=== PATIENT | female | born 1935 | race Caucasian/White ===

== ENCOUNTER 2021-06-11 03:30 | Inpatient (IN) | payer MEDICARE ==
[~2021-06-11] VITALS: Ht 160 cm; Wt 68.8 kg
[2021-06-11 03:45] VITALS: BP 128/55
[2021-06-11] MEDS: IV NORMAL SALINE 1000ML BAG 1,000 ML IV SCH ×2 (04:18→23:12)
--- NOTE | 2021-06-11 04:30 | NUR ---
ADMIT NOTE The patient, MIRA REID, 86 y/o, F admitted by LILIA KO MD, was given written information regarding hospital policies, unit procedures and contact persons. Patient arrived to unit via EMS from [facility] ED. Patient A&O to self, place and situation, VSS, and placed on 2L of O2 on admission. Patient orientated to room, plan of care discussed, and admit packet reviewed. Patient's medical history and home medications reviewed from report received from [facility]. Patient's allergies and preferred pharmacy verified. MD notified of patient's admit to floor and orders received. Patient in bed resting, bed in lowest/locked position, SCDs/Raphael in place, and call light within reach; no other needs voiced at this time.
[2021-06-11] MEDS ORDERED: ACET325T21 PO (05:07)
[2021-06-11] MEDS ORDERED: VENTOLIN HFA18 GM INH (05:08)
[2021-06-11] MEDS ORDERED: ATOR10TA60 PO (05:08)
[2021-06-11] MEDS ORDERED: INSU100I13 SQ (05:08)
[2021-06-11] MEDS ORDERED: TRIA1CAP3 PO (05:08)
[2021-06-11] MEDS ORDERED: LATA2.5D2 OU (05:08)
[2021-06-11] MEDS ORDERED: APIX5TAB PO (05:08)
[2021-06-11] MEDS ORDERED: LOSA25TA PO (05:08)
[2021-06-11] MEDS ORDERED: DORZ10DR21 EACHEYE (05:08)
[2021-06-11] MEDS ORDERED: MONT10TA49 PO (05:08)
[2021-06-11] MEDS ORDERED: IPRA3AMP29 NEB (05:08)
[2021-06-11] MEDS ORDERED: INSU100V35 SQ ×2 (05:08)
[2021-06-11] MEDS ORDERED: DILT360T7 PO (05:08)
[2021-06-11 07:15] VITALS: BP 138/64
[2021-06-11 07:27] LABS: PROTHROMBIN TIME PATIENT 14.6 SEC (11.7-14.0)
--- NOTE | 2021-06-11 09:00 | NUR ---
Eveline is resting quietly with eyes closed. she has o2 on at 2lnc she arouses easily. farias is patent with yellow urine. spoke with daughter and on the phone.They were given the [place] code to call for information. code 8044. update given spoke about delay on surgery related to the Eliquis and bleeding potential.
--- NOTE | 2021-06-11 09:14 | HP ---
ADMIT DATE: 06/11/2021 CHIEF COMPLAINT: Fall with hip pain. HISTORY OF PRESENT ILLNESS: The patient is a pleasant elderly female who fell, has hip pain. In the ER, they did imaging. She has a hip fracture. She has now been admitted. We are consulting orthopedics. PAST MEDICAL HISTORY: Arthritis, hypertension, hyperlipidemia, polypharmacy, asthma, chronic anticoagulation, glaucoma, diabetes. ALLERGIES: PENICILLIN, IBUPROFEN. FAMILY HISTORY: Diabetes. SOCIAL HISTORY: She does not drink, smoke or take drugs. She is retired. MEDICATIONS: Reviewed. She is on 14. Please refer to the MRAD. REVIEW OF SYSTEMS: GENERAL: No history of weight change, weakness or fevers. SKIN: No bruising, hair changes or rashes. EYES: No blurred, double or loss of vision. NOSE AND THROAT: No history of nosebleeds, hoarseness or sore throat. HEART: No history of palpitations, chest pain or shortness of breath on exertion. LUNGS: Denies cough, hemoptysis, wheezing or shortness of breath. GASTROINTESTINAL: Denies changes in appetite, nausea, vomiting, diarrhea or constipation. GENITOURINARY: No history of frequency, urgency, hesitancy or nocturia. NEUROLOGIC: Denies history of numbness, tingling, tremor or weakness. PSYCHIATRIC: No history of panic, anxiety or depression. ENDOCRINE: No history of heat or cold intolerance, polyuria or polydipsia. EXTREMITIES: She complains of left hip pain. PHYSICAL EXAMINATION: VITALS: Within normal limits and are stable. GENERAL: No apparent distress. Alert and oriented. HEENT: Normal cephalic atraumatic, external auditory canals are patent. EYES: Extraocular muscles are intact, pupils are equally round and reactive to light and accommodation. MUSCULOSKELETAL: Well developed, well nourished, good range of motion. ENDOCRINE: No thyromegaly was palpated. LYMPHATICS: No cervical chain or axillary nodes were noted. HEMATOPOIETIC: No bruising. NECK: Supple, no JVD, no thyromegaly was noted. LUNGS: Clear to auscultation in all lung robert without rhonchi or wheezing. HEART: RRR, S1, S2 present. Peripheral pulses intact, no obvious murmurs were noted. ABDOMEN: Soft, nontender. Positive bowel sounds no organomegaly, normal bowel sounds. EXTREMITIES: The left hip is externally rotated. NEUROLOGIC: Normal speech, normal tone. A and O x 3, moves all extremities, no obvious focal deficits. PSYCHIATRIC: Normal affect, normal mood. Stable. SKIN: No ulcerations or rashes, good skin turgor, no jaundice. VASCULAR: Good capillary refill, neurovascular bundle appears to be intact. ASSESSMENT AND PLAN: Fall with left hip fracture. The patient has been admitted. We have consulted Orthopedics. We will hold her home meds for now. I suspect she will go to surgery soon. Postoperatively, she is going to need wound care and probable nursing home in a few days. RAJNI DR: Ronadl TID: [id number]
[2021-06-11 11:01] VITALS: BP 147/72
[2021-06-11] MEDS ORDERED: INSULIN LISPRO 100 UNIT/ML 3ML VIAL for OP,RR ONLY. SQ SCH (11:11)
[2021-06-11] MEDS ORDERED: DEXTROSE 50% 25 GM / 50ML DISP.SYRIN. IV PRN (11:30)
[2021-06-11] MEDS: INSULIN LISPRO 300 UNITS/3 ML VIAL. SQ SCH ×2 (11:54→17:00)
[2021-06-11] MEDS: TRIAMTERENE/HCTZ 37.5/25MG TABLET. PO SCH (12:00)
[2021-06-11] MEDS ORDERED: ALBUTEROL SULFATE 2.5 MG/3 ML NEBU. NEB PRN (12:00)
[2021-06-11] MEDS: LOSARTAN POTASSIUM 25 MG TABLET. PO SCH (12:00)
[2021-06-11] MEDS: IPRATRPIUM/ALBUTEROL 0.5/2.5MG 3 ML NEBU. NEB SCH ×3 (12:02→21:03)
[2021-06-11] MEDS: ONDANSETRON PF 4 MG/2 ML VIAL. IVP PRN ×2 (12:32→23:39)
[2021-06-11] MEDS: MORPHINE SULFATE 2 MG/ML INJ. IVP PRN ×3 (12:32→23:39)
--- NOTE | 2021-06-11 13:07 | NUR ---
became nauseated and had increase in pain. emesis of approx 100 cc brown liquid. medicated with morphine and zofran
[2021-06-11 14:59] VITALS: BP 129/70
--- NOTE | 2021-06-11 15:30 | NUR ---
SW following. Discussed with RN, pt from [facility] - SW trying to reach [facility] to verify if pt is LTC or SNF, 2L, NPO. Ortho following. SW will continue to follow.
--- NOTE | 2021-06-11 18:34 | NUR ---
update given to daughter and
[2021-06-11 19:00] VITALS: BP 122/59
[2021-06-11] MEDS: ATORVASTATIN CALCIUM 10 MG TABLET. PO SCH (20:30)
[2021-06-11] MEDS: DORZOLAMIDE 2% OPHTH SOLUTION 10ML BOTTLE. OD SCH (20:30)
[2021-06-11] MEDS: LATANOPROST 0.005% OPHTH SOLUTION 2.5ML BOTTLE. OU SCH (20:30)
[2021-06-11] MEDS: MONTELUKAST SODIUM 10 MG TABLET. PO SCH (20:30)
[2021-06-11] MEDS: TIMOLOL 0.25% OPHTH SOLUTION 5ML BOTTLE. OU SCH (20:30)
[2021-06-11] MEDS: INSULIN GLARGINE SYRINGE. SQ SCH ×2 (20:36→20:49)
--- NOTE | 2021-06-11 20:50 | NUR ---
Per MD's orders, partial dose(15 units) of scheduled Lantus given this HS d/t pt's NPO status during most of day and low oral intake at dinner.
[2021-06-11 22:38] VITALS: BP 156/73
[2021-06-12] VITALS (12 sets, daily range): BP systolic 93–133; BP diastolic 41–70
[2021-06-12] MEDS: MORPHINE SULFATE 2 MG/ML INJ. IVP PRN ×3 (02:57→20:08)
[2021-06-12] MEDS: IPRATRPIUM/ALBUTEROL 0.5/2.5MG 3 ML NEBU. NEB SCH ×4 (06:14→20:32)
[2021-06-12] MEDS: INSULIN LISPRO 300 UNITS/3 ML VIAL. SQ SCH ×3 (08:00→17:00)
[2021-06-12] MEDS: TRIAMTERENE/HCTZ 37.5/25MG TABLET. PO SCH (08:16)
[2021-06-12] MEDS: LOSARTAN POTASSIUM 25 MG TABLET. PO SCH (08:16)
[2021-06-12] MEDS: LATANOPROST 0.005% OPHTH SOLUTION 2.5ML BOTTLE. OU SCH (08:18)
[2021-06-12] MEDS: DORZOLAMIDE 2% OPHTH SOLUTION 10ML BOTTLE. OD SCH ×3 (08:18→21:27)
[2021-06-12] MEDS: TIMOLOL 0.25% OPHTH SOLUTION 5ML BOTTLE. OU SCH ×2 (08:19→21:25)
--- NOTE | 2021-06-12 10:22 | PDOC ---
[employer] PROGRESS NOTE Date of Service DOS: DATE: 06/12/21 TIME: 10:12 Chief Complaint Chief Complaint Fall with left hip fracture. Arthritis. Hypertension. Hyperlipidemia. Polypharmacy. Asthma. Chronic Anticoagulation. Glaucoma. Diabetes. History of Present Illness History of Present Illness 06/12: Mrs. Qureshi was seen and evaluated this morning while in her room at bedside. We reviewed her chart and discussed her current disposition with her nurse. She is currently receiving 3L of Oxygen. Dr. Ruvalcaba plans to operate this afternoon. Vitals/I&O Vitals/I&O: Vital Signs Date Time Temp Pulse Resp B/P (MAP) Pulse Ox O2 Delivery O2 Flow Rate FiO2 06/12/21 08:18 110 133/70 06/12/21 07:56 Nasal Cannula 2.0 06/12/21 07:00 99.4 18 88 99.4 I & O 06/11/21 06/11/21 06/12/21 15:00 23:00 07:00 Intake Total 0 ml 550 ml 1250 ml Output Total 550 ml 1000 ml 1000 ml Balance -550 ml -450 ml 250 ml Physical Exam General: Alert, Oriented X3, Cooperative Heart: Regular rate, No murmurs Lungs: Clear Abdomen: Normal bowel sounds Extremities: No clubbing Skin: No rashes Labs Labs: Laboratory Tests Test 06/11/21 11:40 06/11/21 17:21 06/11/21 20:29 06/12/21 08:15 Glucose (Fingerstick) 96 mg/dL (70-99) 82 mg/dL (70-99) 154 mg/dL (70-99) 108 mg/dL (70-99) Review of Systems Review of Systems: No headache No rashes Assessment and Plan Assessmemt and Plan Assessment: 1. Fall with left hip fracture. 2. Arthritis. 3. Hypertension. 4. Hyperlipidemia. 5. Polypharmacy. 6. Asthma. 7. Chronic Anticoagulation. 8. Glaucoma. 9. Diabetes. Plan: 1. Surgery this afternoon with Dr. Ruvalcaba 2. Full Code 3. IV Fluids 4. Continue Supplemental Oxygen 5. PT/OT following surgical procedure Comment Review of Relevant I have reviewed the following items del (where applicable) has been applied. Medications: Current Medications Medications (Trade) Dose Ordered Sig/Rasta Route PRN Reason Start Time Stop Time Status Last Admin Dose Admin Atorvastatin Calcium (Lipitor) 10 mg HS PO 06/11/21 21:00 06/11/21 20:30 Albuterol/ Ipratropium (Duoneb) 3 ml RTQID NEB 06/11/21 12:00 06/12/21 06:14 Latanoprost (Xalatan) 1 drop QHS OU 06/11/21 21:00 06/12/21 08:18 Losartan Potassium (Cozaar) 25 mg DAILY PO 06/11/21 12:00 06/12/21 08:16 Montelukast Sodium (Singulair) 10 mg HS PO 06/11/21 21:00 06/11/21 20:30 Diltiazem HCl (Cardizem 24hr Cd) 360 mg DAILY PO 06/11/21 12:00 06/12/21 08:18 Dorzolamide HCl (Trusopt) 1 drop BID OD 06/11/21 21:00 06/12/21 09:00 Insulin Glargine (Lantus Syringe) 30 unit QHS SQ 06/11/21 21:00 06/11/21 20:49 Triamterene/HCTZ (Maxzide 37.5/ 25mg) 1 tab DAILY PO 06/11/21 12:00 06/12/21 08:16 Timolol Maleate (Timoptic 0.25% [facility]) 1 drop BID OU 06/11/21 21:00 06/12/21 08:19 Justifications for Admission Other Justification MAVIS WALKER III DO Jun 12, 2021 10:22
--- NOTE | 2021-06-12 11:34 | NUR ---
MAGI following. Discussed with RN. [facility]I verified pt is a SNF resident at [facility], 2L, NPO. Ortho following. Pt having surgery today. MAGI will continue to follow.
[2021-06-12] MEDS ORDERED: PROPOFOL 10 MG/ML (20ML) VIAL. IV ONE (16:39)
[2021-06-12] MEDS ORDERED: LIDOCAINE 2% PF 5 ML VIAL. ONE (16:39)
[2021-06-12] MEDS ORDERED: PHENYLEPHRINE 10 MG/ML VIAL. ONE (16:39)
[2021-06-12] MEDS ORDERED: MORPHINE SULFATE 2 MG/ML INJ. IVP PRN (16:45)
[2021-06-12] MEDS: IV NORMAL SALINE 1000ML BAG 1,000 ML IV SCH ×3 (16:45→19:45)
[2021-06-12] MEDS ORDERED: HYDROmorphone 2 MG/ML VIAL IVP PRN (16:45)
[2021-06-12] MEDS ORDERED: INSULIN LISPRO 100 UNIT/ML 3ML VIAL for OP,RR ONLY. SQ PRN ×3 (16:45)
[2021-06-12] MEDS ORDERED: IV NORMAL SALINE 1000ML BAG 1,000 ML IV SCH ×2 (16:45)
[2021-06-12] MEDS ORDERED: IV RINGERS,LACTATED 1000ML 1,000 ML IV SCH (16:45)
[2021-06-12] MEDS ORDERED: PROCHLORPERAZINE 10 MG/2 ML VIAL. IVP PRN (16:45)
[2021-06-12] MEDS ORDERED: fentaNYL PF VIAL 100 MCG/2 ML VIAL IVP PRN (16:45)
[2021-06-12] MEDS ORDERED: fentaNYL PF VIAL 100 MCG/2 ML VIAL ONE (17:20)
[2021-06-12] MEDS: fentaNYL PF VIAL 100 MCG/2 ML VIAL IVP PRN ×3 (17:28→19:02)
[2021-06-12] MEDS ORDERED: CLINDAMYCIN 900MG PREMIX 50 ML IV ONE (17:33)
[2021-06-12] MEDS ORDERED: ePHEDrine PF IN SALINE 50 MG/10 ML SYRINGE. IV ONE (17:54)
[2021-06-12] MEDS ORDERED: CLINDAMYCIN 900MG PREMIX 50 ML IV PRN (18:00)
[2021-06-12] MEDS ORDERED: ONDANSETRON PF 4 MG/2 ML VIAL. ONE (18:06)
[2021-06-12] MEDS ORDERED: SEVOFLURANE 31 TO 60 MINUTES. IH ONE (18:19)
--- NOTE | 2021-06-12 18:33 | PDOC4 ---
OPERATIVE NOTE Date: Date: Jun 12, 2021 Pre-Op Diagnosis: Impacted subcapital fracture right hip Post-Op Diagnosis: Same Procedure Performed: Open reduction percutaneous pinning fixation right hip fracture Surgeon: Jordon Anesthesia Type: General Blood Loss: 50 cc Specimans Obtained: None Findings: See dictation Complications: None MARLON NOEL Jr. DO Jun 12, 2021 18:33
--- NOTE | 2021-06-12 18:50 | OP ---
DATE OF SURGERY: 06/12/2021 PREOPERATIVE DIAGNOSIS: Impacted subcapital fracture, right hip. POSTOPERATIVE DIAGNOSIS: Impacted subcapital fracture, right hip. PROCEDURE: Open reduction with percutaneous pin fixation, right hip. SURGEON: Saúl Ruvalcaba Jr, DO ANESTHESIA: General. COMPLICATIONS: None. ESTIMATED BLOOD LOSS: 50 mL. DESCRIPTION OF PROCEDURE: The patient was taken to the operative suite, given a general anesthetic, placed on the fracture table. There was noted to be satisfactory reduction and continued impaction of the right hip fracture. Therefore, the right hip was prepped and draped in a sterile fashion. Incision was made through skin and subcutaneous tissues down through to the iliotibial band down to the femur. The guide pins were then placed from lateral through the neck and into the head in an appropriate position. Three separate pins were placed. Again, anatomically, this looked very good. Therefore, the outer cortex was drilled and then, the 3 screws were then affixed to the area of the femur and into the head and neck and again, a good compression and there was excellent compression of all screws. These were 85 mm, 80 mm and 75 mm in length. The guide pins were then removed. Final x-rays were taken. This wound was then thoroughly irrigated. Superficial tissues and skin was reapproximated. Sterile dressing was applied. The patient was then taken from the operative bed to a postoperative bed and taken to the PACU in stable condition. JOSE M DR: Bryson TID: [id number]
[2021-06-12] MEDS: MONTELUKAST SODIUM 10 MG TABLET. PO SCH (21:19)
[2021-06-12] MEDS: ATORVASTATIN CALCIUM 10 MG TABLET. PO SCH (21:20)
[2021-06-12] MEDS: ACETAMINOPHEN 325 MG TABLET. PO PRN (21:22)
[2021-06-12] MEDS: INSULIN GLARGINE SYRINGE. SQ SCH (21:38)
[2021-06-13] MEDS: MORPHINE SULFATE 2 MG/ML INJ. IVP PRN ×3 (00:06→20:00)
[2021-06-13 02:55] VITALS: BP 98/40
[2021-06-13] MEDS: IPRATRPIUM/ALBUTEROL 0.5/2.5MG 3 ML NEBU. NEB SCH ×5 (06:09→19:06)
[2021-06-13 07:15] VITALS: BP 121/47
[2021-06-13] MEDS: INSULIN LISPRO 300 UNITS/3 ML VIAL. SQ SCH ×3 (08:00→17:00)
--- NOTE | 2021-06-13 08:42 | CONS ---
DATE OF CONSULTATION: 06/12/2021 REASON FOR CONSULTATION: Right hip fracture. HISTORY OF PRESENT ILLNESS: The patient is an 86-year-old female who was ambulating and sustained a trip and fall type of injury. After that fall, she was able to actually ambulate, but with significant pain in the right hip region. Therefore, she was brought to the hospital here at [facility] where x-rays were obtained. She was noted to have an impacted subcapital fracture of the right hip. Actually only mild to moderate pain at this point as long as she was in a stable position. At this point, she has no other injuries, which occurred thankfully. Past medical and surgical history, medications and allergies were reviewed. PHYSICAL EXAMINATION: Today was limited due to the known impacted fracture; however, rotation was uncomfortable. There was no significant shortening or externally rotating of the lower extremity. At this point, the distal neurovascular status is fully intact. DIAGNOSTIC STUDIES: X-rays reveal an impacted fracture, subcapital of right hip. PLAN: At this time, I have talked with the family at length about the diagnosis and the treatment plan. I believe due to the impacted nature of this fracture, it is somewhat stable at this point and in fact we have a very high possibility of this healing with percutaneous pinning and after a long discussion of this versus hemiarthroplasty and the risks and benefits of both as far as nonunion, they wished to proceed with the percutaneous pinning after the open reduction. We will proceed as soon as she is medically cleared. She understands all this. LUZ/EMANUEL/CORNELIUS DR: Bryson TID: [id number]
[2021-06-13] MEDS: TRIAMTERENE/HCTZ 37.5/25MG TABLET. PO SCH (10:25)
[2021-06-13] MEDS: DORZOLAMIDE 2% OPHTH SOLUTION 10ML BOTTLE. OD SCH ×2 (10:26→20:06)
[2021-06-13] MEDS: LOSARTAN POTASSIUM 25 MG TABLET. PO SCH (10:26)
[2021-06-13] MEDS: TIMOLOL 0.25% OPHTH SOLUTION 5ML BOTTLE. OU SCH ×2 (10:26→20:06)
--- NOTE | 2021-06-13 10:44 | NUR ---
SW following. Discussed with RN, pt from [facility], 5L, NPO. Pt had surgery on 06/12/21. PT/OT to start today. COVID-19 negative at [facility]. Updates faxed to [facility]. [facility]I will continue to follow.
[2021-06-13 11:02] VITALS: BP 114/55
--- NOTE | 2021-06-13 12:12 | PDOC ---
[employer] PROGRESS NOTE Date of Service DOS: DATE: 06/13/21 TIME: 12:08 Chief Complaint Chief Complaint Fall with left hip fracture. Hypertension. Arthritis. Hyperlipidemia. Polypharmacy. Asthma. Chronic Anticoagulation. Glaucoma Diabetes History of Present Illness History of Present Illness 06/12: Mrs. Qureshi was seen and evaluated this morning while in her room at bedside. We reviewed her chart and discussed her current disposition with her nurse. She is currently receiving 3L of Oxygen. Dr. Ruvalcaba plans to operate this afternoon. 06/13: Mrs. Qureshi was evaluated and seen this morning while in her room, sitting up. We reviewed her chart and we discussed her current disposition with her nurse. She is post-op day 1 and her wound is dry, intact and clear. Vitals/I&O Vitals/I&O: Vital Signs Date Time Temp Pulse Resp B/P (MAP) Pulse Ox O2 Delivery O2 Flow Rate FiO2 06/13/21 11:02 98.5 68 18 114/55 (74) 95 Nasal Cannula 5.0 98.5 I & O 06/12/21 06/12/21 06/13/21 15:00 23:00 07:00 Intake Total 590 ml 360 ml Output Total 750 ml 450 ml Balance -160 ml -90 ml Physical Exam General: Alert, Oriented X3, Cooperative Heart: Regular rate, No murmurs Lungs: Clear Abdomen: Normal bowel sounds Extremities: No clubbing Skin: No rashes Labs Labs: Laboratory Tests Test 06/12/21 16:31 06/12/21 18:40 06/12/21 20:58 06/13/21 07:42 Glucose (Fingerstick) 93 mg/dL (70-99) 86 mg/dL (70-99) 100 mg/dL (70-99) 68 mg/dL (70-99) Test 06/13/21 11:25 Glucose (Fingerstick) 108 mg/dL (70-99) Review of Systems Review of Systems: No headache. No vomiting. Assessment and Plan Assessmemt and Plan Assessment: 1. Fall with left hip fracture. 2. Hypertension 3. Hyperlipidemia 4. Arthritis. 5. Polypharmacy. 6. Asthma. 7. Chronic Anticoagulation. 8. Glaucoma. 9. Diabetes. Plan: 1. Continue Wound Care 2. Full Code 3. PT/OT 4. Trend labs 5. Probably discharge in a couple of days. Comment Review of Relevant I have reviewed the following items del (where applicable) has been applied. Medications: Current Medications Medications (Trade) Dose Ordered Sig/Rasta Route PRN Reason Start Time Stop Time Status Last Admin Dose Admin Fentanyl Citrate (Fentanyl 2ml Vial) 25 mcg PRN Q5MIN PRN IVP MILD PAIN 1-3 06/12/21 16:45 06/12/21 22:00 DC 06/12/21 19:02 Sodium Chloride 1,000 ml @ 30 mls/hr Q24H IV 06/12/21 16:45 06/13/21 04:44 DC 06/12/21 16:45 Clindamycin Phosphate 50 ml @ 100 mls/hr 1X PREOP PRN IV PRIOR TO PROCEDURE 06/12/21 18:00 06/13/21 10:37 DC 06/12/21 17:36 Acetaminophen (Tylenol) 650 mg PRN Q6HRS PRN PO MILD PAIN / TEMP > 100.3'F 06/12/21 18:45 06/12/21 21:22 Justifications for Admission Other Justification MAVIS WALKER III DO Jun 13, 2021 12:12
[2021-06-13] MEDS ORDERED: PHENYLEPH/MINERAL OIL/PETROLAT RECTAL OINTMENT TUBE. RC PRN (12:15)
[2021-06-13] MEDS ORDERED: HYDROcodone/APAP 5/325MG 1 TAB TABLET PO PRN (13:30)
[2021-06-13 15:14] VITALS: BP 104/41
[2021-06-13 15:37] LABS: BASO % 0 % (0-3); EOS # 0.2 x10^3/uL (0.0-0.7); EOS % 3 % (0-3); HEMATOCRIT 29.8 % (36.0-47.0); HEMOGLOBIN 9.9 g/dL (12.0-15.5); LYMPH # 1.4 x10^3/uL (1.0-4.8); LYMPH % 18 % (24-48); MEAN CORPUSCULAR HEMOGLOBIN 29 pg (25-35); MEAN CORPUSCULAR HGB CONC 33 g/dL (31-37); MEAN CORPUSCULAR VOLUME 87 fL (79-100); MONO # 1.1 x10^3/uL (0.0-1.1); MONO % 14 % (0-9); NEUT # 4.9 x10^3/uL (1.8-7.7); NEUT % 64 % (31-73); PLATELET COUNT 252 x10^3/uL (140-400); RED BLOOD COUNT 3.44 x10^6/uL (3.50-5.40); RED CELL DISTRIBUTION WIDTH 16.3 % (11.5-14.5); WHITE BLOOD COUNT 7.7 x10^3/uL (4.0-11.0)
[2021-06-13 15:39] LABS: CALCIUM 8.5 mg/dL (8.5-10.1); CREATININE 1.4 mg/dL (0.6-1.0); GFR 35.7; POTASSIUM 4.2 mmol/L (3.5-5.1)
[2021-06-13] MEDS: IV NORMAL SALINE 1000ML BAG 1,000 ML IV SCH (15:45)
[2021-06-13] MEDS ORDERED: DILT180T7 PO (17:29)
[2021-06-13] MEDS: HYDROcodone/APAP 5/325MG 1 TAB TABLET PO PRN (19:20)
[2021-06-13 19:35] VITALS: BP 106/49
[2021-06-13] MEDS: ATORVASTATIN CALCIUM 10 MG TABLET. PO SCH (20:06)
[2021-06-13] MEDS: LATANOPROST 0.005% OPHTH SOLUTION 2.5ML BOTTLE. OU SCH (20:06)
[2021-06-13] MEDS: APIXABAN 5 MG TABLET. PO SCH (20:06)
[2021-06-13] MEDS: MONTELUKAST SODIUM 10 MG TABLET. PO SCH (20:06)
[2021-06-13] MEDS: INSULIN GLARGINE SYRINGE. SQ SCH (20:12)
[2021-06-13 23:23] VITALS: BP 114/50
[2021-06-14 07:00] VITALS: BP 112/55
[2021-06-14] MEDS: IPRATRPIUM/ALBUTEROL 0.5/2.5MG 3 ML NEBU. NEB SCH ×4 (07:08→18:20)
[2021-06-14] MEDS: INSULIN LISPRO 300 UNITS/3 ML VIAL. SQ SCH ×3 (08:00→17:00)
[2021-06-14] MEDS: TIMOLOL 0.25% OPHTH SOLUTION 5ML BOTTLE. OU SCH ×2 (09:16→21:53)
[2021-06-14] MEDS: APIXABAN 5 MG TABLET. PO SCH ×2 (09:17→21:54)
[2021-06-14] MEDS: LOSARTAN POTASSIUM 25 MG TABLET. PO SCH (09:17)
[2021-06-14] MEDS: TRIAMTERENE/HCTZ 37.5/25MG TABLET. PO SCH (09:17)
[2021-06-14] MEDS: DORZOLAMIDE 2% OPHTH SOLUTION 10ML BOTTLE. OD SCH ×2 (09:18→21:53)
--- NOTE | 2021-06-14 10:55 | PDOC ---
[employer] PROGRESS NOTE Date of Service DOS: DATE: 06/14/21 TIME: 10:50 Chief Complaint Chief Complaint Fall with right hip fracture. Hypertension. Hyperlipidemia Arthritis. Polypharmacy. Asthma. Chronic Anticoagulation. Glaucoma Diabetes History of Present Illness History of Present Illness 06/12: Mrs. Qureshi was seen and evaluated this morning while in her room at bedside. We reviewed her chart and discussed her current disposition with her nurse. She is currently receiving 3L of Oxygen. Dr. Ruvalcaba plans to operate this afternoon. 06/13: Mrs. Qureshi was evaluated and seen this morning while in her room, sitting up. We reviewed her chart and we discussed her current disposition with her nurse. She is post-op day 1 and her wound is dry, intact and clear. 06/14: Mrs. Qureshi was seen and evaluated this morning in her room. She was sitting up and eating her breakfast. Overall, she appears to be doing well, and her wound was dry, intact and clear. She is post-op day 2. We discussed her current disposition with her nurse and reviewed her chart. She is currently on 5L of Oxygen. Vitals/I&O Vitals/I&O: Vital Signs Date Time Temp Pulse Resp B/P (MAP) Pulse Ox O2 Delivery O2 Flow Rate FiO2 06/14/21 09:18 67 112/55 06/14/21 07:08 Nasal Cannula 5.0 06/14/21 07:00 97.7 16 96 97.7 I & O 06/13/21 06/13/21 06/14/21 15:00 23:00 07:00 Intake Total 520 ml 240 ml Output Total 700 ml 550 ml Balance 520 ml -460 ml -550 ml Physical Exam General: Alert, Oriented X3, Cooperative Heart: Regular rate, No murmurs Lungs: Clear Abdomen: Normal bowel sounds Extremities: No clubbing Skin: No rashes Labs Labs: Laboratory Tests Test 06/13/21 11:25 06/13/21 15:05 06/13/21 16:40 06/13/21 16:45 Glucose (Fingerstick) 108 mg/dL (70-99) 188 mg/dL (70-99) White Blood Count 7.7 x10^3/uL (4.0-11.0) Red Blood Count 3.44 x10^6/uL (3.50-5.40) Hemoglobin 9.9 g/dL (12.0-15.5) Hematocrit 29.8 % (36.0-47.0) Mean Corpuscular Volume 87 fL (79-100) Mean Corpuscular Hemoglobin 29 pg (25-35) Mean Corpuscular Hemoglobin Concent 33 g/dL (31-37) Red Cell Distribution Width 16.3 % (11.5-14.5) Platelet Count 252 x10^3/uL (140-400) Neutrophils (%) (Auto) 64 % (31-73) Lymphocytes (%) (Auto) 18 % (24-48) Monocytes (%) (Auto) 14 % (0-9) Eosinophils (%) (Auto) 3 % (0-3) Basophils (%) (Auto) 0 % (0-3) Neutrophils # (Auto) 4.9 x10^3/uL (1.8-7.7) Lymphocytes # (Auto) 1.4 x10^3/uL (1.0-4.8) Monocytes # (Auto) 1.1 x10^3/uL (0.0-1.1) Eosinophils # (Auto) 0.2 x10^3/uL (0.0-0.7) Basophils # (Auto) 0.0 x10^3/uL (0.0-0.2) Sodium Level 134 mmol/L (136-145) Potassium Level 4.2 mmol/L (3.5-5.1) Chloride Level 98 mmol/L (98-107) Carbon Dioxide Level 28 mmol/L (21-32) Anion Gap 8 (6-14) Blood Urea Nitrogen 20 mg/dL (7-20) Creatinine 1.4 mg/dL (0.6-1.0) Estimated GFR (Cockcroft-Gault) 35.7 Glucose Level 203 mg/dL (70-99) Calcium Level 8.5 mg/dL (8.5-10.1) Lactic Acid Level 0.7 mmol/L (0.4-2.0) Test 06/13/21 20:04 06/14/21 08:26 Glucose (Fingerstick) 253 mg/dL (70-99) 106 mg/dL (70-99) Review of Systems Review of Systems: No vomiting No headache Assessment and Plan Assessmemt and Plan Assessment: 1. Fall with right hip fracture. 2. Hypertension. 3. Hyperlipidemia 4. Arthritis. 5. Polypharmacy. 6. Asthma. 7. Chronic Anticoagulation. 8. Glaucoma 9. Diabetes Plan: 1. Continue wound care 2. Continue DVT Prophylaxis (Eliquis) 3. Full Code 4. Home Medications 5. PT/OT 6. Trend labs. 7. Discharge/Disposition pending. Comment Review of Relevant I have reviewed the following items del (where applicable) has been applied. Medications: Current Medications Medications (Trade) Dose Ordered Sig/Rasta Route PRN Reason Start Time Stop Time Status Last Admin Dose Admin Acetaminophen/ Hydrocodone Bitart (Lortab 5/325) 1 tab PRN Q4HRS PRN PO MODERATE PAIN 06/13/21 13:30 06/13/21 19:20 Acetaminophen/ Hydrocodone Bitart (Lortab 5/325) 2 tab PRN Q4HRS PRN PO SEVERE PAIN 06/13/21 13:30 06/14/21 00:17 Levofloxacin/ Dextrose 100 ml @ 100 mls/hr 1X ONCE IV 06/13/21 16:00 06/13/21 16:59 DC 06/13/21 16:00 Apixaban (Eliquis) 5 mg BID PO 06/13/21 21:00 06/14/21 09:17 Diltiazem HCl (Cardizem 24hr Cd) 180 mg DAILY PO 06/14/21 09:00 06/14/21 09:18 Justifications for Admission Other Justification MAVIS WALKER III DO Jun 14, 2021 10:55
[2021-06-14 11:00] VITALS: BP 140/48
[2021-06-14] MEDS: IV NORMAL SALINE 1000ML BAG 1,000 ML IV SCH (12:29)
[2021-06-14 15:00] VITALS: BP 107/41
[2021-06-14] MEDS: HYDROcodone/APAP 5/325MG 1 TAB TABLET PO PRN ×2 (15:02→16:45)
--- NOTE | 2021-06-14 19:25 | NUR ---
at 1500 pt stated a pain level 9/10. 1 Loratab was given. at 1630 pt stated pain still at 9/10. addition 1 loratab was given.
[2021-06-14 19:59] VITALS: BP 103/33
[2021-06-14] MEDS: LATANOPROST 0.005% OPHTH SOLUTION 2.5ML BOTTLE. OU SCH (21:53)
[2021-06-14] MEDS: MONTELUKAST SODIUM 10 MG TABLET. PO SCH (21:54)
[2021-06-14] MEDS: LACTOBACILLUS RHAMNOSUS GG 1 CAPSULE. PO SCH (21:54)
[2021-06-14] MEDS: ATORVASTATIN CALCIUM 10 MG TABLET. PO SCH (21:54)
[2021-06-14] MEDS: INSULIN GLARGINE SYRINGE. SQ SCH (21:55)
[2021-06-14] MEDS: ACETAMINOPHEN 325 MG TABLET. PO PRN (21:57)
[2021-06-14 23:46] VITALS: BP 137/47
[2021-06-15 03:42] VITALS: BP 118/68
[2021-06-15] MEDS: ACETAMINOPHEN 325 MG TABLET. PO PRN ×2 (05:01→12:29)
[2021-06-15 07:00] VITALS: BP 109/44
[2021-06-15] MEDS: INSULIN LISPRO 300 UNITS/3 ML VIAL. SQ SCH ×3 (07:18→17:51)
[2021-06-15 07:50] LABS: BASO % 1 % (0-3); EOS # 0.2 x10^3/uL (0.0-0.7); EOS % 4 % (0-3); HEMATOCRIT 31.2 % (36.0-47.0); HEMOGLOBIN 10.5 g/dL (12.0-15.5); LYMPH # 1.1 x10^3/uL (1.0-4.8); LYMPH % 16 % (24-48); MEAN CORPUSCULAR HEMOGLOBIN 29 pg (25-35); MEAN CORPUSCULAR HGB CONC 34 g/dL (31-37); MEAN CORPUSCULAR VOLUME 87 fL (79-100); MONO # 1.1 x10^3/uL (0.0-1.1); MONO % 16 % (0-9); NEUT # 4.4 x10^3/uL (1.8-7.7); NEUT % 64 % (31-73); PLATELET COUNT 300 x10^3/uL (140-400); RED BLOOD COUNT 3.61 x10^6/uL (3.50-5.40); RED CELL DISTRIBUTION WIDTH 16.2 % (11.5-14.5)
[2021-06-15 08:20] LABS: CALCIUM 8.9 mg/dL (8.5-10.1); CREATININE 1.2 mg/dL (0.6-1.0); GFR 42.6; POTASSIUM 3.7 mmol/L (3.5-5.1)
[2021-06-15] MEDS: LOSARTAN POTASSIUM 25 MG TABLET. PO SCH (09:03)
[2021-06-15] MEDS: LACTOBACILLUS RHAMNOSUS GG 1 CAPSULE. PO SCH ×2 (09:03→20:53)
[2021-06-15] MEDS: TRIAMTERENE/HCTZ 37.5/25MG TABLET. PO SCH (09:03)
[2021-06-15] MEDS: APIXABAN 5 MG TABLET. PO SCH ×2 (09:03→20:53)
[2021-06-15] MEDS: IV NORMAL SALINE 1000ML BAG 1,000 ML IV SCH (09:04)
[2021-06-15] MEDS: DORZOLAMIDE 2% OPHTH SOLUTION 10ML BOTTLE. OD SCH ×2 (09:10→21:04)
[2021-06-15] MEDS: TIMOLOL 0.25% OPHTH SOLUTION 5ML BOTTLE. OU SCH ×2 (09:10→21:03)
[2021-06-15] MEDS: IPRATRPIUM/ALBUTEROL 0.5/2.5MG 3 ML NEBU. NEB SCH ×4 (09:15→21:21)
--- NOTE | 2021-06-15 09:54 | PN ---
DATE: 06/15/2021 The patient underwent a fixation of her hip fracture. The incision is healing well without any signs or symptoms of infection. There has been no significant drainage every day that she is seen over the last two days. She has had decreasing amounts of need for pain medication due to pain control at this point. She had difficulty with ambulation day 1. On day 2, she is up and around trying to maintain her weightbearing status; however, no signs or symptoms of infection and no signs or symptoms of DVT. She seems to be doing very well at this point. SYD DR: Bryson TID: [id number]
[2021-06-15 11:00] VITALS: BP 112/52
--- NOTE | 2021-06-15 11:14 | PDOC ---
[employer] PROGRESS NOTE Date of Service DOS: DATE: 06/15/21 TIME: 10:59 Chief Complaint Chief Complaint Fall with right hip fracture. Hyperlipidemia Hypertension Arthritis Polypharmacy Chronic Anticoagulation Asthma Glaucoma Diabetes History of Present Illness History of Present Illness 06/12: Mrs. Qureshi was seen and evaluated this morning while in her room at bedside. We reviewed her chart and discussed her current disposition with her nurse. She is currently receiving 3L of Oxygen. Dr. Ruvalcaba plans to operate this afternoon. 06/13: Mrs. Qureshi was evaluated and seen this morning while in her room, sitting up. We reviewed her chart and we discussed her current disposition with her nurse. She is post-op day 1 and her wound is dry, intact and clear. 06/14: Mrs. Qureshi was seen and evaluated this morning in her room. She was sitting up and eating her breakfast. Overall, she appears to be doing well, and her wound was dry, intact and clear. She is post-op day 2. We discussed her current disposition with her nurse and reviewed her chart. She is currently on 5L of Oxygen. 06/15: Mrs. Qureshi was evaluated and examined this morning in her room. She was sitting up and was able to eat her breakfast this morning. Her wound was intact and dry. Last night she did have some pain and Lortab was given to manage this. We will consult wound care for her coccygeal pain. We discussed her current disposition with her nurse and reviewed her chart. I also spoke with her about our plan for his 's care. Vitals/I&O Vitals/I&O: Vital Signs Date Time Temp Pulse Resp B/P (MAP) Pulse Ox O2 Delivery O2 Flow Rate FiO2 06/15/21 09:17 99 Nasal Cannula 2.0 06/15/21 09:03 72 109/44 06/15/21 07:00 98.6 18 98.6 I & O 06/14/21 06/14/21 06/15/21 15:00 23:00 07:00 Intake Total 500 ml 300 ml Output Total 750 ml 900 ml Balance 500 ml -450 ml -900 ml Physical Exam General: Alert, Oriented X3, Cooperative Heart: Regular rate, No murmurs Lungs: Clear Abdomen: Normal bowel sounds Extremities: No clubbing Skin: No rashes Labs Labs: Laboratory Tests Test 06/14/21 11:49 9/11/21 16:47 06/14/21 20:27 06/15/21 06:38 Glucose (Fingerstick) 188 mg/dL (70-99) 164 mg/dL (70-99) 125 mg/dL (70-99) 57 mg/dL (70-99) Test 06/15/21 07:30 06/15/21 07:51 White Blood Count 7.0 x10^3/uL (4.0-11.0) Red Blood Count 3.61 x10^6/uL (3.50-5.40) Hemoglobin 10.5 g/dL (12.0-15.5) Hematocrit 31.2 % (36.0-47.0) Mean Corpuscular Volume 87 fL (79-100) Mean Corpuscular Hemoglobin 29 pg (25-35) Mean Corpuscular Hemoglobin Concent 34 g/dL (31-37) Red Cell Distribution Width 16.2 % (11.5-14.5) Platelet Count 300 x10^3/uL (140-400) Neutrophils (%) (Auto) 64 % (31-73) Lymphocytes (%) (Auto) 16 % (24-48) Monocytes (%) (Auto) 16 % (0-9) Eosinophils (%) (Auto) 4 % (0-3) Basophils (%) (Auto) 1 % (0-3) Neutrophils # (Auto) 4.4 x10^3/uL (1.8-7.7) Lymphocytes # (Auto) 1.1 x10^3/uL (1.0-4.8) Monocytes # (Auto) 1.1 x10^3/uL (0.0-1.1) Eosinophils # (Auto) 0.2 x10^3/uL (0.0-0.7) Basophils # (Auto) 0.0 x10^3/uL (0.0-0.2) Sodium Level 136 mmol/L (136-145) Potassium Level 3.7 mmol/L (3.5-5.1) Chloride Level 100 mmol/L (98-107) Carbon Dioxide Level 29 mmol/L (21-32) Anion Gap 7 (6-14) Blood Urea Nitrogen 15 mg/dL (7-20) Creatinine 1.2 mg/dL (0.6-1.0) Estimated GFR (Cockcroft-Gault) 42.6 Glucose Level 108 mg/dL (70-99) Calcium Level 8.9 mg/dL (8.5-10.1) Glucose (Fingerstick) 109 mg/dL (70-99) Review of Systems Review of Systems: No vomiting No headache Assessment and Plan Assessmemt and Plan Assessment: 1. Fall with right hip fracture. 2. Hyperlipidemia 3. Hypertension 4. Polypharmacy 5. Arthritis 6. Asthma. 7. Chronic Anticoagulation. 8. Glaucoma 9. Diabetes Plan: 1. Consult with Wound Care for coccygeal pain. 2. Continue DVT Prophylaxis (Eliquis) 3. Full Code. 4. Home medications. 5. PT/OT 6. Trend labs. 7. Discharge/Disposition pending ([facility]) Comment Review of Relevant I have reviewed the following items del (where applicable) has been applied. Medications: Current Medications Medications (Trade) Dose Ordered Sig/Rasta Route PRN Reason Start Time Stop Time Status Last Admin Dose Admin Levofloxacin/ Dextrose 50 ml @ 50 mls/hr Q24H IV 06/14/21 16:00 06/14/21 12:49 Lactobacillus Rhamnosus (Culturelle) 1 cap BID PO 06/14/21 21:00 06/15/21 09:03 Justifications for Admission Other Justification MAVIS WALKER III DO Jun 15, 2021 11:14
[2021-06-15 15:00] VITALS: BP 113/62
[2021-06-15 19:00] VITALS: BP 135/51
[2021-06-15] MEDS: MONTELUKAST SODIUM 10 MG TABLET. PO SCH (20:53)
[2021-06-15] MEDS: ATORVASTATIN CALCIUM 10 MG TABLET. PO SCH (20:53)
[2021-06-15] MEDS: INSULIN GLARGINE SYRINGE. SQ SCH (21:00)
[2021-06-15] MEDS: LATANOPROST 0.005% OPHTH SOLUTION 2.5ML BOTTLE. OU SCH (21:03)
[2021-06-15 22:38] VITALS: BP 131/57
[2021-06-16] MEDS: ACETAMINOPHEN 325 MG TABLET. PO PRN (02:31)
[2021-06-16 03:00] VITALS: BP 124/65
[2021-06-16] MEDS: IV NORMAL SALINE 1000ML BAG 1,000 ML IV SCH (03:45)
[2021-06-16 06:43] LABS: CALCIUM 9.1 mg/dL (8.5-10.1); CREATININE 1.4 mg/dL (0.6-1.0); GFR 35.7; POTASSIUM 4.2 mmol/L (3.5-5.1)
[2021-06-16 07:00] VITALS: BP 134/66
[2021-06-16 07:20] LABS: BASO # 0.1 x10^3/uL (0.0-0.2); BASO % 1 % (0-3); EOS % 0 % (0-3); HEMATOCRIT 33.1 % (36.0-47.0); LYMPH # 1.3 x10^3/uL (1.0-4.8); LYMPH % 15 % (24-48); MEAN CORPUSCULAR HEMOGLOBIN 29 pg (25-35); MEAN CORPUSCULAR HGB CONC 33 g/dL (31-37); MEAN CORPUSCULAR VOLUME 86 fL (79-100); MONO # 1.2 x10^3/uL (0.0-1.1); MONO % 14 % (0-9); NEUT # 6.2 x10^3/uL (1.8-7.7); NEUT % 71 % (31-73); PLATELET COUNT 349 x10^3/uL (140-400); RED BLOOD COUNT 3.85 x10^6/uL (3.50-5.40); RED CELL DISTRIBUTION WIDTH 16.1 % (11.5-14.5); WHITE BLOOD COUNT 8.9 x10^3/uL (4.0-11.0)
[2021-06-16] MEDS: IPRATRPIUM/ALBUTEROL 0.5/2.5MG 3 ML NEBU. NEB SCH ×2 (07:36→12:00)
[2021-06-16] MEDS: TIMOLOL 0.25% OPHTH SOLUTION 5ML BOTTLE. OU SCH (08:46)
[2021-06-16] MEDS: TRIAMTERENE/HCTZ 37.5/25MG TABLET. PO SCH (08:46)
[2021-06-16] MEDS: DORZOLAMIDE 2% OPHTH SOLUTION 10ML BOTTLE. OD SCH (08:46)
[2021-06-16] MEDS: LACTOBACILLUS RHAMNOSUS GG 1 CAPSULE. PO SCH (08:46)
[2021-06-16] MEDS: LOSARTAN POTASSIUM 25 MG TABLET. PO SCH (08:46)
[2021-06-16] MEDS: APIXABAN 5 MG TABLET. PO SCH (08:46)
[2021-06-16] MEDS: INSULIN LISPRO 300 UNITS/3 ML VIAL. SQ SCH ×2 (08:49→12:00)
--- NOTE | 2021-06-16 09:50 | PDOC ---
[employer] PROGRESS NOTE Date of Service DOS: DATE: 06/16/21 TIME: 09:48 Chief Complaint Chief Complaint Fall with right hip fracture. Hyperlipidemia Hypertension Arthritis Polypharmacy Chronic Anticoagulation Asthma Glaucoma Diabetes History of Present Illness History of Present Illness 06/12: Mrs. Qureshi was seen and evaluated this morning while in her room at bedside. We reviewed her chart and discussed her current disposition with her nurse. She is currently receiving 3L of Oxygen. Dr. Ruvalcaba plans to operate this afternoon. 06/13: Mrs. Qureshi was evaluated and seen this morning while in her room, sitting up. We reviewed her chart and we discussed her current disposition with her nurse. She is post-op day 1 and her wound is dry, intact and clear. 06/14: Mrs. Qureshi was seen and evaluated this morning in her room. She was sitting up and eating her breakfast. Overall, she appears to be doing well, and her wound was dry, intact and clear. She is post-op day 2. We discussed her current disposition with her nurse and reviewed her chart. She is currently on 5L of Oxygen. 06/15: Mrs. Qureshi was evaluated and examined this morning in her room. She was sitting up and was able to eat her breakfast this morning. Her wound was intact and dry. Last night she did have some pain and Lortab was given to manage this. We will consult wound care for her coccygeal pain. We discussed her current disposition with her nurse and reviewed her chart. I also spoke with her about our plan for his 's care. 06/16: Patient seen and evaluated bedside. Pain is manageable with Lortab. She will discharged today to SNU. Greater than 30 minutes spent managing the d ischarge of this patient. Vitals/I&O Vitals/I&O: Vital Signs Date Time Temp Pulse Resp B/P (MAP) Pulse Ox O2 Delivery O2 Flow Rate FiO2 06/16/21 08:46 94 134/66 06/16/21 07:38 97 Nasal Cannula 4.0 06/16/21 07:00 97.9 18 97.9 I & O 06/15/21 06/15/21 06/16/21 15:00 23:00 07:00 Intake Total 100 ml Balance 100 ml Physical Exam General: Alert, Oriented X3, Cooperative Heart: Regular rate, No murmurs Lungs: Clear Abdomen: Normal bowel sounds Extremities: No clubbing Skin: No rashes Labs Labs: Laboratory Tests Test 06/15/21 11:46 06/15/21 17:40 06/15/21 21:15 06/16/21 05:20 Glucose (Fingerstick) 206 mg/dL (70-99) 304 mg/dL (70-99) 163 mg/dL (70-99) White Blood Count 8.9 x10^3/uL (4.0-11.0) Red Blood Count 3.85 x10^6/uL (3.50-5.40) Hemoglobin 11.0 g/dL (12.0-15.5) Hematocrit 33.1 % (36.0-47.0) Mean Corpuscular Volume 86 fL (79-100) Mean Corpuscular Hemoglobin 29 pg (25-35) Mean Corpuscular Hemoglobin Concent 33 g/dL (31-37) Red Cell Distribution Width 16.1 % (11.5-14.5) Platelet Count 349 x10^3/uL (140-400) Neutrophils (%) (Auto) 71 % (31-73) Lymphocytes (%) (Auto) 15 % (24-48) Monocytes (%) (Auto) 14 % (0-9) Eosinophils (%) (Auto) 0 % (0-3) Basophils (%) (Auto) 1 % (0-3) Neutrophils # (Auto) 6.2 x10^3/uL (1.8-7.7) Lymphocytes # (Auto) 1.3 x10^3/uL (1.0-4.8) Monocytes # (Auto) 1.2 x10^3/uL (0.0-1.1) Eosinophils # (Auto) 0.0 x10^3/uL (0.0-0.7) Basophils # (Auto) 0.1 x10^3/uL (0.0-0.2) Sodium Level 132 mmol/L (136-145) Potassium Level 4.2 mmol/L (3.5-5.1) Chloride Level 97 mmol/L (98-107) Carbon Dioxide Level 27 mmol/L (21-32) Anion Gap 8 (6-14) Blood Urea Nitrogen 17 mg/dL (7-20) Creatinine 1.4 mg/dL (0.6-1.0) Estimated GFR (Cockcroft-Gault) 35.7 Glucose Level 260 mg/dL (70-99) Calcium Level 9.1 mg/dL (8.5-10.1) Test 06/16/21 06:52 Glucose (Fingerstick) 251 mg/dL (70-99) Comment Review of Relevant I have reviewed the following items del (where applicable) has been applied. Medications: Current Medications Medications (Trade) Dose Ordered Sig/Rasta Route PRN Reason Start Time Stop Time Status Last Admin Dose Admin Lorazepam (Ativan) 1 mg PRN Q8HRS PRN PO ANXIETY / AGITATION 06/15/21 17:45 06/16/21 02:30 Justifications for Admission Other Justification EMILY CRUZ MD Jun 16, 2021 09:49
--- NOTE | 2021-06-16 09:53 | PDOC3 ---
Discharge Summary Visit Information Date of Admission: Jun 11, 2021 Date of Discharge: Jun 16, 2021 Brief Hospital Course Allergies Allergies Coded Allergies Type Severity Reaction Last Updated Verified Penicillins Allergy Intermediate 06/12/21 Yes ibuprofen Allergy Intermediate 06/12/21 Yes Vital Signs Vital Signs Date Time Temp Pulse Resp B/P (MAP) Pulse Ox O2 Delivery O2 Flow Rate FiO2 06/16/21 08:46 94 134/66 06/16/21 07:38 97 Nasal Cannula 4.0 06/16/21 07:00 97.9 18 97.9 Lab Results Laboratory Tests Test 06/14/21 11:49 06/14/21 16:47 06/14/21 20:27 06/15/21 06:38 Glucose (Fingerstick) 188 mg/dL (70-99) 164 mg/dL (70-99) 125 mg/dL (70-99) 57 mg/dL (70-99) Test 06/15/21 07:30 06/15/21 07:51 06/15/21 11:46 06/15/21 17:40 White Blood Count 7.0 x10^3/uL (4.0-11.0) Red Blood Count 3.61 x10^6/uL (3.50-5.40) Hemoglobin 10.5 g/dL (12.0-15.5) Hematocrit 31.2 % (36.0-47.0) Mean Corpuscular Volume 87 fL (79-100) Mean Corpuscular Hemoglobin 29 pg (25-35) Mean Corpuscular Hemoglobin Concent 34 g/dL (31-37) Red Cell Distribution Width 16.2 % (11.5-14.5) Platelet Count 300 x10^3/uL (140-400) Neutrophils (%) (Auto) 64 % (31-73) Lymphocytes (%) (Auto) 16 % (24-48) Monocytes (%) (Auto) 16 % (0-9) Eosinophils (%) (Auto) 4 % (0-3) Basophils (%) (Auto) 1 % (0-3) Neutrophils # (Auto) 4.4 x10^3/uL (1.8-7.7) Lymphocytes # (Auto) 1.1 x10^3/uL (1.0-4.8) Monocytes # (Auto) 1.1 x10^3/uL (0.0-1.1) Eosinophils # (Auto) 0.2 x10^3/uL (0.0-0.7) Basophils # (Auto) 0.0 x10^3/uL (0.0-0.2) Sodium Level 136 mmol/L (136-145) Potassium Level 3.7 mmol/L (3.5-5.1) Chloride Level 100 mmol/L (98-107) Carbon Dioxide Level 29 mmol/L (21-32) Anion Gap 7 (6-14) Blood Urea Nitrogen 15 mg/dL (7-20) Creatinine 1.2 mg/dL (0.6-1.0) Estimated GFR (Cockcroft-Gault) 42.6 Glucose Level 108 mg/dL (70-99) Calcium Level 8.9 mg/dL (8.5-10.1) Glucose (Fingerstick) 109 mg/dL (70-99) 206 mg/dL (70-99) 304 mg/dL (70-99) Test 06/15/21 21:15 06/16/21 05:20 06/16/21 06:52 Glucose (Fingerstick) 163 mg/dL (70-99) 251 mg/dL (70-99) White Blood Count 8.9 x10^3/uL (4.0-11.0) Red Blood Count 3.85 x10^6/uL (3.50-5.40) Hemoglobin 11.0 g/dL (12.0-15.5) Hematocrit 33.1 % (36.0-47.0) Mean Corpuscular Volume 86 fL (79-100) Mean Corpuscular Hemoglobin 29 pg (25-35) Mean Corpuscular Hemoglobin Concent 33 g/dL (31-37) Red Cell Distribution Width 16.1 % (11.5-14.5) Platelet Count 349 x10^3/uL (140-400) Neutrophils (%) (Auto) 71 % (31-73) Lymphocytes (%) (Auto) 15 % (24-48) Monocytes (%) (Auto) 14 % (0-9) Eosinophils (%) (Auto) 0 % (0-3) Basophils (%) (Auto) 1 % (0-3) Neutrophils # (Auto) 6.2 x10^3/uL (1.8-7.7) Lymphocytes # (Auto) 1.3 x10^3/uL (1.0-4.8) Monocytes # (Auto) 1.2 x10^3/uL (0.0-1.1) Eosinophils # (Auto) 0.0 x10^3/uL (0.0-0.7) Basophils # (Auto) 0.1 x10^3/uL (0.0-0.2) Sodium Level 132 mmol/L (136-145) Potassium Level 4.2 mmol/L (3.5-5.1) Chloride Level 97 mmol/L (98-107) Carbon Dioxide Level 27 mmol/L (21-32) Anion Gap 8 (6-14) Blood Urea Nitrogen 17 mg/dL (7-20) Creatinine 1.4 mg/dL (0.6-1.0) Estimated GFR (Cockcroft-Gault) 35.7 Glucose Level 260 mg/dL (70-99) Calcium Level 9.1 mg/dL (8.5-10.1) Laboratory Tests Test 06/15/21 11:46 06/15/21 17:40 06/15/21 21:15 06/16/21 05:20 Glucose (Fingerstick) 206 mg/dL (70-99) 304 mg/dL (70-99) 163 mg/dL (70-99) White Blood Count 8.9 x10^3/uL (4.0-11.0) Red Blood Count 3.85 x10^6/uL (3.50-5.40) Hemoglobin 11.0 g/dL (12.0-15.5) Hematocrit 33.1 % (36.0-47.0) Mean Corpuscular Volume 86 fL (79-100) Mean Corpuscular Hemoglobin 29 pg (25-35) Mean Corpuscular Hemoglobin Concent 33 g/dL (31-37) Red Cell Distribution Width 16.1 % (11.5-14.5) Platelet Count 349 x10^3/uL (140-400) Neutrophils (%) (Auto) 71 % (31-73) Lymphocytes (%) (Auto) 15 % (24-48) Monocytes (%) (Auto) 14 % (0-9) Eosinophils (%) (Auto) 0 % (0-3) Basophils (%) (Auto) 1 % (0-3) Neutrophils # (Auto) 6.2 x10^3/uL (1.8-7.7) Lymphocytes # (Auto) 1.3 x10^3/uL (1.0-4.8) Monocytes # (Auto) 1.2 x10^3/uL (0.0-1.1) Eosinophils # (Auto) 0.0 x10^3/uL (0.0-0.7) Basophils # (Auto) 0.1 x10^3/uL (0.0-0.2) Sodium Level 132 mmol/L (136-145) Potassium Level 4.2 mmol/L (3.5-5.1) Chloride Level 97 mmol/L (98-107) Carbon Dioxide Level 27 mmol/L (21-32) Anion Gap 8 (6-14) Blood Urea Nitrogen 17 mg/dL (7-20) Creatinine 1.4 mg/dL (0.6-1.0) Estimated GFR (Cockcroft-Gault) 35.7 Glucose Level 260 mg/dL (70-99) Calcium Level 9.1 mg/dL (8.5-10.1) Test 06/16/21 06:52 Glucose (Fingerstick) 251 mg/dL (70-99) Brief Hospital Course Ms. Qureshi is a 86 old female who presented with impacted subcapital fracture of the right hip. Consultation was placed to orthopedic surgery. She had open reduction with percutaneous pin fixation of her right hip. She worked with physical therapy and was recommended acute rehab with rolling walker. Discharge Information Condition at Discharge: Improved Disposition/Orders: D/C to Another Facility Scheduled Apixaban (Eliquis) 5 Mg Tablet, 5 MG PO BID for AFIB, (Reported) Entered as Reported by: FLY SEARS on 06/11/21507 Last Action: New Order on 06/11/21507 by FLY SEARS Atorvastatin Calcium (Atorvastatin Calcium) 10 Mg Tablet, 10 MG PO HS for FOR CHOLESTEROL, #30 Ref 0 (Reported) Entered as Reported by: FLY SEARS on 06/11/21507 Last Action: Continued on 06/11/21 112 by MAYRA VALLE Diltiazem HCl (Diltiazem 24Hr ER (LA)) 180 Mg Tab.er.24h, 1 TAB PO DAILY for afib for 30 Days, #30 Ref 0 (Reported) Entered as Reported by: JILL VENTURA on 06/13/211728 Last Taken: Unknown Dose on Unknown Date & Time Last Action: Converted on 06/13/211735 by JILL VENTURA Dorzolamide Hcl/Timolol Maleat (Cosopt Eye Drops) 10 Ml Drops, 1 DROP EACHEYE B ID for GLAUCOMA, #10 Ref 0 (Reported) Entered as Reported by: FLY SEARS on 06/11/21507 Last Action: Converted on 06/11/211153 by MAYRA VALLE Insulin Glargine,Hum.rec.anlog (Lantus Solostar) 100 Unit/1 Ml Insuln.pen, 30 UNIT SQ QHS for DM, #15 Ref 3 (Reported) Entered as Reported by: FLY SEARS on 06/11/21507 Last Action: Converted on 06/11/211153 by MAYRA VALLE Insulin Lispro (Admelog) 100 Unit/1 Ml Vial, 0-12 UNIT SQ TIDWMEALS for DM, (Reported) Entered as Reported by: FLY SEARS on 06/11/21507 Last Action: Continued on 06/11/211123 by MAYRA VALLE Insulin Lispro (Admelog) 100 Unit/1 Ml Vial, 8 UNIT SQ TIDAC for DM, (Reported) Entered as Reported by: FLY SEARS on 06/11/21507 Last Action: New Order on 06/11/21507 by FLY SEARS Ipratropium/Albuterol Sulfate (Duoneb 0.5-3(2.5) Mg/3 Ml) 3 Ml Ampul.neb, 3 ML NEB QID for ASTHMA, (Reported) Entered as Reported by: FLY SEARS on 06/11/21507 Last Action: Continued on 06/11/211153 by MAYRA VALLE Latanoprost (Xalatan) 2.5 Ml Drops, 1 DROP OU BID for GLAUCOMA, (Reported) Entered as Reported by: FLY SEARS on 06/11/21507 Last Action: Continued on 06/11/211153 by MAYRA VALLE Losartan Potassium (Cozaar ) 25 Mg Tablet, 25 MG PO DAILY for HYPERTENSION, (Reported) Entered as Reported by: FLY SEARS on 06/11/21507 Last Action: Continued on 06/11/211153 by MAYRA VALLE Montelukast Sodium (Singulair Tablet ) 10 Mg Tablet, 10 MG PO HS for FOR ASTHMA, Ref 0 (Reported) Entered as Reported by: FLY SEARS on 06/11/21507 Last Action: Continued on 06/11/211153 by MAYRA VALLE Triamterene/Hydrochlorothiazid (Triamterene-Hctz 37.5-25 Mg Cp) 1 Each Capsule, 1 CAP PO DAILY for HTN, #30 Ref 5 (Reported) Entered as Reported by: FLY SEARS on 06/11/21507 Last Action: Converted on 06/11/211153 by MAYRA VALLE Scheduled PRN Acetaminophen (Acetaminophen) 325 Mg Tablet, 2 TAB PO PRN Q6HRS PRN for MILD PAIN / TEMP > 100.3'F for 30 Days, #30 Ref 0 (Reported) Entered as Reported by: FLY SEARS on 06/11/21506 Last Action: New Order on 06/11/21506 by FLY SEARS Albuterol Sulfate (Ventolin Hfa Inhaler) 18 Gm Hfa.aer.ad, 2 PUFF INH PRN Q4HRS PRN for WHEEZING, Ref 0 (Reported) Entered as Reported by: FLY SEARS on 06/11/21507 Last Action: Converted on 06/11/211153 by MAYRA VALLE Justicifation of Admission Dx: Justifications for Admission: Justification of Admission Dx: Yes EMILY CRUZ MD Jun 16, 2021 09:53
--- NOTE | 2021-06-16 09:58 | SNU/HH DC ---
DISCHARGE ORDERS DISCHARGE INFORMATION: DISCHARGE DATE: Jun 16, 2021 CONDITION ON DISCHARGE: Stable CODE STATUS: Code Status: DNR/DNI RETIREMENT: SNF STAY <30 DAYS: Yes POST DISCHARGE ORDERS: DIET AFTER DISCHARGE: Cardiac CHECKS AFTER DISCHARGE: CHECKS AFTER DISCHARGE: Check blood sugar, ac/hs TREATMENT/EQUIPMENT ORDERS: ADAPTIVE EQUIPMENT NEEDED: Front wheeled walker Physical Therapy For: Evalulation/Treatment Occupational Therapy For: Evaluation/Treatment DISCHARGE MEDICATIONS: Home Meds Reported Medications Diltiazem HCl (Diltiazem 24Hr ER (LA)) 180 Mg Tab.er.24h, 1 TAB PO DAILY for afib for 30 Days, #30 TAB 0 Refills 06/13/21 Latanoprost (XALATAN) 2.5 Ml Drops, 1 DROP OU BID for GLAUCOMA, ML 06/11/21 Triamterene/Hydrochlorothiazid (TRIAMTERENE-HCTZ 37.5-25 MG CP) 1 Each Capsule, 1 CAP PO DAILY for HTN, #30 CAP 5 Refills 06/11/21 Albuterol Sulfate (VENTOLIN HFA INHALER) 18 Gm Hfa.aer.ad, 2 PUFF INH PRN Q4HRS PRN for WHEEZING, EACH 0 Refills 06/11/21 Montelukast Sodium (SINGULAIR TABLET ) 10 Mg Tablet, 10 MG PO HS for FOR ASTHMA, TAB 0 Refills 06/11/21 Ipratropium/Albuterol Sulfate (DUONEB 0.5-3(2.5) MG/3 ML) 3 Ml Ampul.neb, 3 ML NEB QID for ASTHMA, EACH 06/11/21 Insulin Glargine,Hum.rec.anlog (LANTUS SOLOSTAR) 100 Unit/1 Ml Insuln.pen, 30 UNIT SQ QHS for DM, #15 ML 3 Refills 06/11/21 Apixaban (ELIQUIS) 5 Mg Tablet, 5 MG PO BID for AFIB, TAB 06/11/21 Losartan Potassium (COZAAR ) 25 Mg Tablet, 25 MG PO DAILY for HYPERTENSION, TAB 06/11/21 Dorzolamide Hcl/Timolol Maleat (COSOPT EYE DROPS) 10 Ml Drops, 1 DROP EACHEYE BI D for GLAUCOMA, #10 ML 0 Refills 06/11/21 Atorvastatin Calcium (ATORVASTATIN CALCIUM) 10 Mg Tablet, 10 MG PO HS for FOR CHOLESTEROL, #30 TAB 0 Refills 06/11/21 Insulin Lispro (Admelog) 100 Unit/1 Ml Vial, 8 UNIT SQ TIDAC for DM, EACH 06/11/21 Insulin Lispro (Admelog) 100 Unit/1 Ml Vial, 0-12 UNIT SQ TIDWMEALS for DM, EACH 06/11/21 Acetaminophen (ACETAMINOPHEN) 325 Mg Tablet, 2 TAB PO PRN Q6HRS PRN for MILD PAIN / TEMP > 100.3'F for 30 Days, #30 TAB 0 Refills 06/11/21 EMILY CRUZ MD Jun 16, 2021 09:58
[2021-06-16] MEDS ORDERED: ANTI-COAG MONITOR BY PHARMACY. MC PRN (10:15)
--- NOTE | 2021-06-16 10:42 | NUR ---
[facility] following. Discussed with RN, updates and discharge orders faxed to [facility]. Awaiting transportation time. [facility] will continue to follow. Addendum: 06/16/21 at 1431 by TARAS SOW [place] arranged transport for between [id number]. RN notified.
[2021-06-16 11:18] VITALS: BP 122/59
[2021-06-16] MEDS ORDERED: HYDR-2761 PO (12:28)
[2021-06-16] MEDS ORDERED: LORA-434 PO (12:28)
[2021-06-16 15:12] VITALS: BP 115/49
--- NOTE | 2021-06-16 15:28 | NUR ---
Attempt made to call report to [facility]. They stated they would have the nurse call be to return call to obtain report.
--- NOTE | 2021-06-16 16:20 | NUR ---
Patient taken to [facility] by transport service
== END 2021-06-16 16:20 | DRG 482 ==
LOC: 4 NORTH 03:30
PROVIDERS: ADMIT Internal Medicine; ATTEND Internal Medicine
PROC: 0QS634Z Reposition Right Upper Femur with Internal Fixation Device, Percutaneous Approach (ICD-10-PCS; principal; 2021-06-12 16:50)
DX: S72.011A Unspecified intracapsular fracture of right femur, initial encounter for closed fracture (principal); E11.9 Type 2 diabetes mellitus without complications; Z66 Do not resuscitate; E78.5 Hyperlipidemia, unspecified; I10 Essential (primary) hypertension; M19.90 Unspecified osteoarthritis, unspecified site; I48.91 Unspecified atrial fibrillation; J45.909 Unspecified asthma, uncomplicated; W01.0XXA Fall on same level from slipping, tripping and stumbling without subsequent striking against object, initial encounter; Y93.89 Activity, other specified; Z79.4 Long term (current) use of insulin; Z79.01 Long term (current) use of anticoagulants; Z79.899 Other long term (current) drug therapy; Z83.3 Family history of diabetes mellitus; Z88.0 Allergy status to penicillin; Z88.8 Allergy status to other drugs, medicaments and biological substances; Y92.89 Other specified places as the place of occurrence of the external cause; Y99.8 Other external cause status
CPT/HCPCS: 36415; 36600; 76000; 80048; 82306; 82962; 83605; 85025; 85610; 87641; 94640; 94760; A4930; A6223; A6253; A6402; C1713; C1769; J0690; J1815; J1956; J2270; J2370; J2405; J2704; J3010; J3490; J7030; 97110-GP; 97530-GO; 97530-GP; 97535-GO; G0378

== ENCOUNTER 2021-07-11 14:52 | Inpatient (IN) | payer MEDICARE ==
[~2021-07-11] VITALS: Ht 161.3 cm; Wt 65.0 kg
[~2021-07-11 14:52] MED LIST: ACET325T21 PO; APIX5TAB PO; ATOR10TA60 PO; DILT180T7 PO; DILT360T7 PO; DORZ10DR21 EACHEYE; HYDR-2761 PO; INSU100I13 SQ; INSU100V35 SQ; IPRA3AMP29 NEB; LATA2.5D2 OU; LORA-434 PO; LOSA25TA PO; MONT10TA49 PO; TRIA1CAP3 PO; VENTOLIN HFA18 GM INH
[2021-07-11] MEDS ORDERED: NON FORMULARY ITEM (Albuterol Sulfate (Ventolin Hfa Inhaler) 2 PUFF) INH PRN (15:30)
[2021-07-11] MEDS ORDERED: DEXTROSE 50% 25 GM / 50ML DISP.SYRIN. IV PRN (15:30)
[2021-07-11] MEDS ORDERED: ACETAMINOPHEN 325 MG TABLET. PO PRN (15:30)
[2021-07-11] MEDS: IPRATRPIUM/ALBUTEROL 0.5/2.5MG 3 ML NEBU. NEB SCH ×2 (16:00→20:00)
[2021-07-11] MEDS ORDERED: ALBUTEROL SULFATE 2.5 MG/3 ML NEBU. NEB PRN (16:00)
[2021-07-11] MEDS ORDERED: ANTI-COAG MONITOR BY PHARMACY. MC PRN (16:00)
[2021-07-11] MEDS ORDERED: ALBUTEROL SULFATE 8GM INHALER. INH PRN (16:15)
[2021-07-11] MEDS: IPRATROPIUM/ALBUTEROL 20/100mcg/INH INHALER. INH SCH ×2 (16:45→21:32)
[2021-07-11] MEDS: INSULIN LISPRO 300 UNITS/3 ML VIAL. SQ SCH (17:00)
[2021-07-11 19:00] VITALS: BP 108/60
[2021-07-11] MEDS: APIXABAN 5 MG TABLET. PO SCH (21:32)
[2021-07-11] MEDS: TIMOLOL 0.5% OPHTH SOLUTION 5ML BOTTLE. OU SCH (21:32)
[2021-07-11] MEDS: MONTELUKAST SODIUM 10 MG TABLET. PO SCH (21:32)
[2021-07-11] MEDS: ATORVASTATIN CALCIUM 10 MG TABLET. PO SCH (21:32)
[2021-07-11] MEDS: LINEZOLID 600 MG TABLET PO SCH (21:32)
[2021-07-11] MEDS: DORZOLAMIDE 2% OPHTH SOLUTION 10ML BOTTLE. OU SCH (21:33)
[2021-07-11] MEDS: LATANOPROST 0.005% OPHTH SOLUTION 2.5ML BOTTLE. OU SCH (21:33)
[2021-07-11 23:00] VITALS: BP 110/70
[2021-07-12 03:00] VITALS: BP 123/69
[2021-07-12 07:00] VITALS: BP 128/74
[2021-07-12] MEDS: IPRATRPIUM/ALBUTEROL 0.5/2.5MG 3 ML NEBU. NEB SCH ×4 (07:39→20:24)
[2021-07-12] MEDS: INSULIN LISPRO 300 UNITS/3 ML VIAL. SQ SCH ×3 (08:00→17:00)
[2021-07-12] MEDS: CEFEPIME HCL IV Push 1 GM VIAL. IVP SCH ×2 (08:31→21:01)
[2021-07-12] MEDS: DORZOLAMIDE 2% OPHTH SOLUTION 10ML BOTTLE. OU SCH ×2 (08:31→21:03)
[2021-07-12] MEDS: TIMOLOL 0.5% OPHTH SOLUTION 5ML BOTTLE. OU SCH ×2 (08:31→21:03)
[2021-07-12] MEDS: LATANOPROST 0.005% OPHTH SOLUTION 2.5ML BOTTLE. OU SCH ×2 (08:32→21:03)
[2021-07-12] MEDS: FUROSEMIDE 40 MG/4 ML VIAL. IVP SCH (08:54)
[2021-07-12] MEDS: LOSARTAN POTASSIUM 25 MG TABLET. PO SCH (08:54)
[2021-07-12] MEDS: LINEZOLID 600 MG TABLET PO SCH ×2 (08:55→21:00)
[2021-07-12] MEDS: IPRATROPIUM/ALBUTEROL 20/100mcg/INH INHALER. INH SCH (08:55)
[2021-07-12] MEDS: APIXABAN 5 MG TABLET. PO SCH ×2 (08:55→21:00)
[2021-07-12 09:31] LABS: BASO # 0.1 x10^3/uL (0.0-0.2); BASO % 1 % (0-3); EOS # 0.4 x10^3/uL (0.0-0.7); EOS % 4 % (0-3); HEMATOCRIT 27.9 % (36.0-47.0); HEMOGLOBIN 8.9 g/dL (12.0-15.5); LYMPH # 1.5 x10^3/uL (1.0-4.8); LYMPH % 16 % (24-48); MEAN CORPUSCULAR HEMOGLOBIN 28 pg (25-35); MEAN CORPUSCULAR HGB CONC 32 g/dL (31-37); MEAN CORPUSCULAR VOLUME 87 fL (79-100); MONO # 1.2 x10^3/uL (0.0-1.1); MONO % 13 % (0-9); NEUT # 6.2 x10^3/uL (1.8-7.7); NEUT % 66 % (31-73); PLATELET COUNT 260 x10^3/uL (140-400); RED BLOOD COUNT 3.22 x10^6/uL (3.50-5.40); RED CELL DISTRIBUTION WIDTH 17.4 % (11.5-14.5); WHITE BLOOD COUNT 9.4 x10^3/uL (4.0-11.0)
--- NOTE | 2021-07-12 09:42 | CONS ---
DATE OF CONSULTATION: 07/12/2021 REFERRING PHYSICIAN: Carloz Ca MD. REASON FOR CONSULTATION: HCAP antibiotic management. HISTORY OF PRESENT ILLNESS: An 86-year-old female, correction resident with history of type 2 diabetes, dementia, neuropathy, major depressive disorder, obesity, DVT embolization, glaucoma, allergic rhinitis, osteoarthritis, pressure ulcer, atrial fibrillation, COPD, intermittent asthma, CKD, history of pneumonia, history of diastolic chronic heart failure, dysphagia oropharyngeal, was sent to [facility] on 07/11/2021 with altered mental status. There was also concern that her altered mental status was getting worse at [facility]. The patient is not able to give history. She is arousable, but does not give any information. The patient is normally alert, was found to be disoriented due to her dementia. She was recently admitted for ORIF for hip fracture complicated by pneumonia. From ED notes, it appears that she was started on Zyprexa recently. The patient's white count was normal at 9.2, creatinine of 1.1. UA was negative. BNP was 9686. CK of 12. Troponin was 0.018. Lactate of 1.1. SARS COVID was negative. The patient was found to have infiltrate with pleural effusion. The patient was started on Levaquin and linezolid. ID consultation has been requested for antibiotic management. The patient remains afebrile here. Labs from here are pending. At this time, requiring 4 liters O2 by nasal cannula. PAST MEDICAL HISTORY: Diabetes, asthma, COPD, right ankle pressure ulcer, paroxysmal atrial fibrillation, CKD, dementia, correction resident. REVIEW OF SYSTEMS: Negative to obtain. ALLERGIES: PENICILLIN, UNKNOWN REACTION PER PHARMACY. The patient has tolerated Keflex in the past. IBUPROFEN. SOCIAL HISTORY: Nonsmoker, correction resident. CURRENT MEDICATIONS: Levaquin, linezolid. Other medications reviewed in medication list. PHYSICAL EXAMINATION: VITAL SIGNS: Temperature 97.9, pulse 115, respiratory rate 20, blood pressure 123/69, oxygen saturation 98% on 4 liters O2 by nasal cannula. GENERAL: Sleepy, arousable, lethargic female, appears comfortable on 4 liters O2 by nasal cannula. HEENT: Normocephalic, atraumatic. Anicteric. No thrush. Oral mucosa moist. NECK: Supple. LUNGS: Decreased breath sounds at the bases. No accessory muscle use. No wheezing. HEART: S1, S2. No murmurs. ABDOMEN: Soft, nontender, nondistended. EXTREMITIES: No edema, no cyanosis. DERMATOLOGIC: Warm, dry, no generalized rash. NEUROLOGIC: Lethargic, sleepy, arousable. PSYCHIATRIC: Unable to assess. LABORATORY DATA: None here. Labs at [facility] as per HPI. DIAGNOSTIC DATA: Reviewed. IMPRESSION: 1. Acute hypoxic respiratory failure, likely aspiration pneumonia. 2. Underlying chronic obstructive pulmonary disease and mild intermittent asthma. 3. Encephalopathy with underlying dementia. 4. Chronic kidney disease. 5. Diabetes mellitus with neuropathy. 6. Right ankle ulcer. 7. History of ALLERGIES TO PENICILLIN intermediate, has tolerated Keflex per pharmacy. RECOMMENDATIONS: 1. Discontinue Levaquin. 2. Start cefepime, renal dosing, pharmacy to assist, observe closely. 3. Continue linezolid. 4. Monitor labs and cultures. 5. Maintain aspiration precaution. 6. Continue supportive care. 7. CT Chest planned Discussed with nursing staff. Thank you, Dr. Ca, for consulting Infectious Disease to participate in this patient's care. If you have any questions, do not hesitate to contact me. We will follow along with you. AMY/ELIDIA SANTILLAN: Casandra TID: [id number] [facility]
[2021-07-12 09:58] LABS: ALBUMIN 2.1 g/dL (3.4-5.0); ALBUMIN/GLOBULIN RATIO 0.5 (1.0-1.7); CALCIUM 8.7 mg/dL (8.5-10.1); CREATININE 1.2 mg/dL (0.6-1.0); GFR 42.6; POTASSIUM 4.1 mmol/L (3.5-5.1); TOTAL BILIRUBIN 0.3 mg/dL (0.2-1.0); TOTAL PROTEIN 6.7 g/dL (6.4-8.2)
--- NOTE | 2021-07-12 09:59 | HP ---
ADMIT DATE: 07/12/2021 HISTORY OF PRESENT ILLNESS: The patient is an 86-year-old female patient, resident at [facility], who was sent to the Emergency Room of [facility] with altered mental status. The patient apparently was unresponsive even to sternal rub. She apparently normally alert, but disoriented due to dementia. She has had open reduction internal fixation of a hip fracture, complicated pneumonia. She was started on Zyprexa. She has been sundowning. She was extensively investigated in the Emergency Room of [facility] and had had an EKG, which showed that her rhythm was irregularly irregular consistent with atrial fibrillation at 113 beats per minute with no ST segment elevation or depression. Her chest x-ray showed moderate left and trace right pleural effusion and diffuse lower lobe predominant interstitial infiltrate, increased compared to the prior study. She had had a CT scan of the head, which showed there is no intracranial hemorrhage, edema or mass effect. The brain parenchyma demonstrates periventricular and deep white matter hypodensities compatible with chronic microvascular ischemic changes. The size of the ventricles is appropriate. She has mucosal thickening similar to the previous exam is seen in the maxillary sinuses. Other paranasal sinuses are clear. She apparently was hypoxic on arrival to the Emergency Room and therefore she was started on oxygen supplementation, was treated with aztreonam and Flagyl and was transferred to [facility] for further evaluation and treatment. PAST MEDICAL HISTORY: Significant for pure hypercholesterolemia, hypercoagulability state, essential hypertension, paroxysmal atrial fibrillation/wandering atrial pacemaker, thoracic aortic aneurysm without rupture, chronic obstructive pulmonary disease, chronic kidney disease as well as chronic diastolic congestive heart failure. PAST SURGICAL HISTORY: Significant for bilateral cataract extraction, total abdominal hysterectomy and most recently she has hip fracture for which she underwent open reduction internal fixation. ALLERGIES: SHE IS ALLERGIC TO PENICILLIN AND IBUPROFEN. FAMILY HISTORY: Significant for the fact that the father has heart disease and at the age of 72. Mother had cerebrovascular accident and at age of 77. She has a brother with heart disease and alcohol abuse. SOCIAL HISTORY: She is and lives with her . She has 2 sons from previous marriage and 1 daughter. She never smoked, does not drink alcohol or do any recreational drugs. 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 REVIEW OF SYSTEMS: As per history of present illness. PHYSICAL EXAMINATION: GENERAL: On arrival to the Emergency Room, the patient looked pale, but not jaundiced or cyanosed. No lymphadenopathy, no thyromegaly, no jugular venous distention. No lower limb edema. VITAL SIGNS: Her heart rate was 117, blood pressure was 109/53, temperature was 98.6, respiratory rate was 16 and oxygen saturation was 98% on 3 liters of oxygen. HEAD, EYES, EARS, NOSE AND THROAT: Normocephalic, atraumatic. NECK: Supple. HEART: Showed normal first and second heart sounds. No gallop or murmur. CHEST: Shows central trachea, equally reduced expansion air entry, vesicular breath sounds. No crepitation or rhonchi. She has dull percussion noted and absent breath sounds both sides posteriorly. ABDOMEN: Distended, soft, nontender. NEUROLOGIC: She was alert, moves all her extremities. PSYCHOLOGIC: Her affect and mood was normal. LABORATORY DATA: While in the Emergency Room, she has had lab work done showed white cell count of 9200, hemoglobin 8.8, hematocrit 27.7, MCV 86 and platelet count 236,000 with normal manual differential. Her chemistry showed a serum sodium 139, potassium 3.9, chloride 104, bicarbonate 30, anion gap of 5, BUN 25, creatinine 1.1. Estimated GFR was 47 mL per minute. Her glucose 109, calcium was 8.7, magnesium 2. Lactic acid was 1.1. Her total bilirubin, AST, ALT, alkaline phosphatase were normal. Her BNP was 9686. Total protein 6.8, albumin 2.4 and lipase was 93. Her arterial blood gas showed a pH of 7.37, pCO2 of 52, pO2 of 65, bicarbonate 30 and oxygen saturation was 96% on FiO2 of 32%. Her urinalysis essentially unremarkable and tox screen was negative. Her coronavirus by PCR and rapid testing both were negative. Her chest x-ray showed moderate left and trace right pleural effusion and diffuse lower lobe predominant interstitial infiltrate, increased compared to the prior study. CT scan of the head showed there is no intracranial hemorrhage, edema or mass effect; the brain parenchyma demonstrates periventricular and deep white matter hypodensities compatible with chronic microvascular ischemic changes; size of the ventricles appropriate; mucosal thickening, similar to previous exam seen in the maxillary sinuses; other paranasal sinuses are clear. ASSESSMENT: The patient was transferred to [facility] with: 1. Acute hypoxic respiratory failure. 2. Probably healthcare-associated pneumonia as the patient is known to have dysphagia and has had aspiration pneumonia before. 3. Acute on chronic diastolic congestive heart failure. 4. Atrial fibrillation/multifocal atrial tachycardia, for which she is on diltiazem. PLAN: My plan is to continue with all her medications. I have held her hydrocodone, lorazepam. Continue with apixaban for her right lower extremity DVT. I have consulted the infectious disease specialist, personal counselor and the automobile accessories salesperson. We have had discussion with the family regarding hospice care as she has recurrent aspiration pneumonia, but the family want to pursue aggressive treatment. LUCY DR: Luisa TID: [id number]
--- NOTE | 2021-07-12 10:21 | PN ---
DATE: 07/12/2021 SUBJECTIVE: The patient is resting, slightly propped up in bed, in no apparent respiratory distress. She is awake, alert, eating her breakfast. On questioning her, she did complain of shortness of breath and cough. Denied any chills, rigors or fever. PHYSICAL EXAMINATION: GENERAL: When I examined her, she was pale, but no jaundice, cyanosis or thyromegaly. No jugular venous distention. No lower limb edema. VITAL SIGNS: Her heart rate was 119, blood pressure was 110/66, temperature 98.1, respiratory rate was 20 and oxygen saturation was 96% on 4 liters of oxygen. HEAD, EYES, EARS, NOSE, AND THROAT: Normocephalic, atraumatic. NECK: Supple. HEART: Showed normal first and second heart sounds, no gallop, rub or murmur. CHEST: Showed central trachea, bilateral equal reduced expansion and air entry, vesicular breath sounds anteriorly. I could not appreciate any crepitation or rhonchi posteriorly. There is dull percussion noted and absent breath sounds, more so on the left than right. ABDOMEN: Distended, soft, nontender. NEUROLOGIC: She is demented; however, without any obvious lateralizing sign. All her cranial nerves intact. She moves extremities without difficulty. Her intake and output are incompletely recorded. LABORATORY DATA: Her lab work still pending at the time of this dictation. ASSESSMENT: 1. Acute hypoxic respiratory failure for which she is now on 4 liters of oxygen. 2. Acute on chronic diastolic congestive heart failure. 3. Chronic obstructive pulmonary disease exacerbation. 4. Aspiration pneumonia. 5. Atrial fibrillation versus multifocal atrial tachycardia for which she is on diltiazem. 6. She has right lower extremity deep vein thrombosis, for which she is on apixaban. PLAN: To obviously continue with IV antibiotic as recommended by Infectious Disease specialist. She is now on cefepime and Zyvox. Meanwhile, we will continue with all other medications. She is also on Lasix 40 mg IV daily, diltiazem to control the heart rate and she is on low dose sliding scale. SUPA DR: Luisa TID: [id number]
[2021-07-12 11:00] VITALS: BP 103/61
--- NOTE | 2021-07-12 11:03 | PDOC2 ---
CONSULT Date of Consult Date of Consult DATE: 07/12/21 TIME: 11:02 Reason for Consult Reason for Consult: Congestive heart failure and atrial fibrillation Referring Physician Referring Physician: Dr. Ca Identification/Chief Complaint Chief Complaint Altered mental status Source Source: Chart review, Patient History of Present Illness Reason for Visit: 86-year-old female who was undergoing rehabilitation at [facility] after surgical fixation of hip fracture and complicated pneumonia was initially brought to [facility] ED with mental status changes. She was found to have acute on chronic diastolic heart failure, atrial fibrillation with RVR and possibly healthcare associated pneumonia and transferred to [facility] for further management. Upon my exam, she was feeling better and denied any chest pain, orthopnea/PND, palpitations or syncope. Past Medical History Past Medical History Paroxysmal atrial fibrillation usually followed by Replaced By [facility] cardiology Chronic diastolic heart failure Hyperlipidemia Hypertension Thoracic aortic aneurysm COPD Chronic kidney disease Past Surgical History Past Surgical History Bilateral cataract extraction Hysterectomy Surgical fixation of hip fracture Family History Family History Coronary artery disease Stroke Social History Social History Patient is a non-smoker and nondrinker and used to work at [employer] Current Medications Current Medications Current Medications Acetaminophen (Tylenol) 650 mg PRN Q6HRS PRN PO MILD PAIN / TEMP > 100.3'F; Start 07/11/21 at 15:30 Apixaban (Eliquis) 5 mg BID PO Last administered on 07/12/21at 08:55; Start 07/11/21 at 21:00 Atorvastatin Calcium (Lipitor) 10 mg HS PO Last administered on 07/11/21at 21:32; Start 07/11/21 at 21:00 Albuterol/ Ipratropium (Duoneb) 3 ml RTQID NEB Last administered on 07/12/21at 07:39; Start 07/11/21 at 16:00 Latanoprost (Xalatan) 1 drop BID OU Last administered on 07/12/21at 08:32; Start 07/11/21 at 21:00 Losartan Potassium (Cozaar) 25 mg DAILY PO Last administered on 07/12/21at 08:54; Start 07/12/21 at 09:00 Montelukast Sodium (Singulair) 10 mg HS PO Last administered on 07/11/21at 21:32; Start 07/11/21 at 21:00 Non-Formulary Medication (Albuterol Sulfate (Ventolin Hfa Inhaler)) 2 puff PRN Q4HRS PRN INH WHEEZING; Start 07/11/21 at 15:30; Status UNV Diltiazem HCl (Cardizem 24hr Cd) 180 mg DAILY PO Last administered on 07/12/21 08:53; Start 07/12/21 at 09:00 Dorzolamide HCl (Trusopt) 1 drop BID OU Last administered on 07/12/21 08:31; Start 07/11/21 at 21:00 Furosemide (Lasix) 40 mg DAILY IVP Last administered on 07/12/21 08:54; Start 07/12/21 at 09:00 Insulin Human Lispro (HumaLOG) 0-5 UNITS TIDWMEALS SQ ; Start 07/11/21 at 17:00 Dextrose (Dextrose 50%-Water Syringe) 12.5 gm PRN Q15MIN PRN IV SEE COMMENTS; Start 07/11/21 at 15:30 Linezolid (Zyvox) 600 mg BID PO Last administered on 07/12/21at 08:55; Start 07/11/21 at 21:00 Levofloxacin/ Dextrose 150 ml @ 100 mls/hr Q48H IV Last administered on 07/11/21at 16:45; Start 07/11/21 at 16:00; Stop 07/12/21 at 15:59 Timolol Maleate (Timoptic 0.5% Oph) 1 drop BID OU Last administered on 07/12/21at 08:31; Start 07/11/21 at 21:00 Albuterol Sulfate (Ventolin Neb Soln) 2.5 mg PRN Q4HRS PRN NEB SHORTNESS OF BREATH Last administered on 07/12/21at 03:47; Start 07/11/21 at 16:00 Info (Anti-Coagulation Monitoring By Pharmacy) 1 each PRN DAILY PRN MC PER PROTOCOL; Start 07/11/21 at 16:00 Albuterol Sulfate (Ventolin Hfa) 1 puff PRN Q4HRS PRN INH WHEEZING; Start 07/11/21 at 16:15 Albuterol/ Ipratropium (Combivent Respimat 20-100 Mcg) 1 puff RTQID INH Last administered on 07/12/21at 08:55; Start 07/11/21 at 16:00 Cefepime HCl (Maxipime) 1 gm Q12HR IVP Last administered on 07/12/21at 08:31; Start 07/12/21 at 09:00 Active Scripts Active Ativan (Lorazepam) 1 Mg Tablet 1 Mg PO PRN BID PRN 7 Days Hydrocodone-Apap 5-325 (Hydrocodone Bit/Acetaminophen) 1 Tab Tablet 1 Tab PO PRN Q6-8HRS PRN 7 Days Reported Diltiazem 24Hr ER (LA) (Diltiazem HCl) 180 Mg Tab.er.24h 1 Tab PO DAILY 30 Days Xalatan (Latanoprost) 2.5 Ml Drops 1 Drop OU BID Triamterene-Hctz 37.5-25 Mg Cp (Triamterene/Hydrochlorothiazid) 1 Each Capsule 1 Cap PO DAILY Ventolin Hfa Inhaler (Albuterol Sulfate) 18 Gm Hfa.aer.ad 2 Puff INH PRN Q4HRS PRN Singulair Tablet (Montelukast Sodium) 10 Mg Tablet 10 Mg PO HS Duoneb 0.5-3(2.5) Mg/3 Ml (Albuterol/Ipratropium) 3 Ml Ampul.neb 3 Ml NEB QID Lantus Solostar (Insulin Glargine,Hum.rec.anlog) 100 Unit/1 Ml Insuln.pen 30 Unit SQ QHS Eliquis (Apixaban) 5 Mg Tablet 5 Mg PO BID Cozaar (Losartan Potassium) 25 Mg Tablet 25 Mg PO DAILY Cosopt Eye Drops (Dorzolamide Hcl/Timolol Maleat) 10 Ml Drops 1 Drop EACHEYE BID Atorvastatin Calcium 10 Mg Tablet 10 Mg PO HS Admelog (Insulin Lispro) 100 Unit/1 Ml Vial 8 Unit SQ TIDAC Admelog (Insulin Lispro) 100 Unit/1 Ml Vial 0-12 Unit SQ TIDWMEALS Acetaminophen 325 Mg Tablet 2 Tab PO PRN Q6HRS PRN 30 Days Allergies Allergies: Coded Allergies: Penicillins (Verified Allergy, Intermediate, 07/12/21) Has tolerated keflex ibuprofen (Verified Allergy, Intermediate, 06/12/21) ROS General: YES: Fatigue PSYCHOLOGICAL ROS: No: Hallucinations Eyes: No Loss of vision HEENT: No: Epistaxis Respiratory: YES: Shortness of breath; No: Hemoptysis Cardiovascular: No Chest Pain Gastrointestinal: No Vomiting Genitourinary: No Dysuria, No Hematuria Neurological: Yes Confusion; No Seizures Physical Exam General: Alert, No acute distress HEENT: Atraumatic Lungs: Other (Decreased air entry bases) Heart: Other (Heart rate irregular) Abdomen: Soft Extremities: No edema Neuro: Normal speech Psych/Mental Status: Mood NL Vitals VITALS Vital Signs Date Time Temp Pulse Resp B/P (MAP) Pulse Ox O2 Delivery O2 Flow Rate FiO2 07/12/21 08:54 119 110/66 07/12/21 07:40 98 Nasal Cannula 4.0 07/12/21 07:00 98.1 20 98.1 Labs Labs Laboratory Tests Test 07/12/21 07:41 07/12/21 08:50 07/12/21 10:57 Glucose (Fingerstick) 83 mg/dL (70-99) 141 mg/dL (70-99) White Blood Count 9.4 x10^3/uL (4.0-11.0) Red Blood Count 3.22 x10^6/uL (3.50-5.40) Hemoglobin 8.9 g/dL (12.0-15.5) Hematocrit 27.9 % (36.0-47.0) Mean Corpuscular Volume 87 fL (79-100) Mean Corpuscular Hemoglobin 28 pg (25-35) Mean Corpuscular Hemoglobin Concent 32 g/dL (31-37) Red Cell Distribution Width 17.4 % (11.5-14.5) Platelet Count 260 x10^3/uL (140-400) Neutrophils (%) (Auto) 66 % (31-73) Lymphocytes (%) (Auto) 16 % (24-48) Monocytes (%) (Auto) 13 % (0-9) Eosinophils (%) (Auto) 4 % (0-3) Basophils (%) (Auto) 1 % (0-3) Neutrophils # (Auto) 6.2 x10^3/uL (1.8-7.7) Lymphocytes # (Auto) 1.5 x10^3/uL (1.0-4.8) Monocytes # (Auto) 1.2 x10^3/uL (0.0-1.1) Eosinophils # (Auto) 0.4 x10^3/uL (0.0-0.7) Basophils # (Auto) 0.1 x10^3/uL (0.0-0.2) Sodium Level 140 mmol/L (136-145) Potassium Level 4.1 mmol/L (3.5-5.1) Chloride Level 105 mmol/L (98-107) Carbon Dioxide Level 27 mmol/L (21-32) Anion Gap 8 (6-14) Blood Urea Nitrogen 16 mg/dL (7-20) Creatinine 1.2 mg/dL (0.6-1.0) Estimated GFR (Cockcroft-Gault) 42.6 BUN/Creatinine Ratio 13 (6-20) Glucose Level 78 mg/dL (70-99) Calcium Level 8.7 mg/dL (8.5-10.1) Total Bilirubin 0.3 mg/dL (0.2-1.0) Aspartate Amino Transf (AST/SGOT) 16 U/L (15-37) Alanine Aminotransferase (ALT/SGPT) 13 U/L (14-59) Alkaline Phosphatase 85 U/L (46-116) Total Protein 6.7 g/dL (6.4-8.2) Albumin 2.1 g/dL (3.4-5.0) Albumin/Globulin Ratio 0.5 (1.0-1.7) Laboratory Tests Test 07/12/21 07:41 07/12/21 08:50 07/12/21 10:57 Glucose (Fingerstick) 83 mg/dL (70-99) 141 mg/dL (70-99) White Blood Count 9.4 x10^3/uL (4.0-11.0) Red Blood Count 3.22 x10^6/uL (3.50-5.40) Hemoglobin 8.9 g/dL (12.0-15.5) Hematocrit 27.9 % (36.0-47.0) Mean Corpuscular Volume 87 fL (79-100) Mean Corpuscular Hemoglobin 28 pg (25-35) Mean Corpuscular Hemoglobin Concent 32 g/dL (31-37) Red Cell Distribution Width 17.4 % (11.5-14.5) Platelet Count 260 x10^3/uL (140-400) Neutrophils (%) (Auto) 66 % (31-73) Lymphocytes (%) (Auto) 16 % (24-48) Monocytes (%) (Auto) 13 % (0-9) Eosinophils (%) (Auto) 4 % (0-3) Basophils (%) (Auto) 1 % (0-3) Neutrophils # (Auto) 6.2 x10^3/uL (1.8-7.7) Lymphocytes # (Auto) 1.5 x10^3/uL (1.0-4.8) Monocytes # (Auto) 1.2 x10^3/uL (0.0-1.1) Eosinophils # (Auto) 0.4 x10^3/uL (0.0-0.7) Basophils # (Auto) 0.1 x10^3/uL (0.0-0.2) Sodium Level 140 mmol/L (136-145) Potassium Level 4.1 mmol/L (3.5-5.1) Chloride Level 105 mmol/L (98-107) Carbon Dioxide Level 27 mmol/L (21-32) Anion Gap 8 (6-14) Blood Urea Nitrogen 16 mg/dL (7-20) Creatinine 1.2 mg/dL (0.6-1.0) Estimated GFR (Cockcroft-Gault) 42.6 BUN/Creatinine Ratio 13 (6-20) Glucose Level 78 mg/dL (70-99) Calcium Level 8.7 mg/dL (8.5-10.1) Total Bilirubin 0.3 mg/dL (0.2-1.0) Aspartate Amino Transf (AST/SGOT) 16 U/L (15-37) Alanine Aminotransferase (ALT/SGPT) 13 U/L (14-59) Alkaline Phosphatase 85 U/L (46-116) Total Protein 6.7 g/dL (6.4-8.2) Albumin 2.1 g/dL (3.4-5.0) Albumin/Globulin Ratio 0.5 (1.0-1.7) Assessment/Plan Assessment/Plan 1. Acute hypoxic respiratory failure, multifactorial secondary to combination of acute on chronic diastolic heart failure and possible pneumonia. Chest x-ray showed moderate left and trace right pleural effusions and diffuse lower lobe infiltrates. CT scan of the chest pending. Pulmonary and ID teams following. 2. Acute on chronic diastolic heart failure: Better compensated after diuresis. 2D echo in February 2021 showed LVEF 55 to 60%, grade 2 diastolic dysfunction and mild aortic stenosis. Lexiscan nuclear stress test at that time did not show any significant ischemia. Continue current medical regimen. 3. Paroxysmal atrial fibrillation, presenting with atrial fibrillation with RVR. Heart rate better controlled presently with diltiazem. Continue Eliquis for stroke prophylaxis. 4. Hypertension: Controlled 5. Hyperlipidemia: Continue statins 6. Diabetes mellitus type 2: Treat per IM Thank you for your consultation KALEB GEE MD Jul 12, 2021 11:03
--- NOTE | 2021-07-12 12:53 | PDOC ---
PULMONARY PROGRESS NOTES DATE: 07/12/21 TIME: 12:52 Vitals Vital Signs Date Time Temp Pulse Resp B/P (MAP) Pulse Ox O2 Delivery O2 Flow Rate FiO2 07/12/21 08:54 119 110/66 07/12/21 08:00 Nasal Cannula 4.0 07/12/21 07:40 98 07/12/21 07:00 98.1 20 98.1 Lungs: Clear Labs Laboratory Tests Test 07/12/21 07:41 07/12/21 08:50 07/12/21 10:57 Glucose (Fingerstick) 83 mg/dL (70-99) 141 mg/dL (70-99) White Blood Count 9.4 x10^3/uL (4.0-11.0) Red Blood Count 3.22 x10^6/uL (3.50-5.40) Hemoglobin 8.9 g/dL (12.0-15.5) Hematocrit 27.9 % (36.0-47.0) Mean Corpuscular Volume 87 fL (79-100) Mean Corpuscular Hemoglobin 28 pg (25-35) Mean Corpuscular Hemoglobin Concent 32 g/dL (31-37) Red Cell Distribution Width 17.4 % (11.5-14.5) Platelet Count 260 x10^3/uL (140-400) Neutrophils (%) (Auto) 66 % (31-73) Lymphocytes (%) (Auto) 16 % (24-48) Monocytes (%) (Auto) 13 % (0-9) Eosinophils (%) (Auto) 4 % (0-3) Basophils (%) (Auto) 1 % (0-3) Neutrophils # (Auto) 6.2 x10^3/uL (1.8-7.7) Lymphocytes # (Auto) 1.5 x10^3/uL (1.0-4.8) Monocytes # (Auto) 1.2 x10^3/uL (0.0-1.1) Eosinophils # (Auto) 0.4 x10^3/uL (0.0-0.7) Basophils # (Auto) 0.1 x10^3/uL (0.0-0.2) Sodium Level 140 mmol/L (136-145) Potassium Level 4.1 mmol/L (3.5-5.1) Chloride Level 105 mmol/L (98-107) Carbon Dioxide Level 27 mmol/L (21-32) Anion Gap 8 (6-14) Blood Urea Nitrogen 16 mg/dL (7-20) Creatinine 1.2 mg/dL (0.6-1.0) Estimated GFR (Cockcroft-Gault) 42.6 BUN/Creatinine Ratio 13 (6-20) Glucose Level 78 mg/dL (70-99) Calcium Level 8.7 mg/dL (8.5-10.1) Total Bilirubin 0.3 mg/dL (0.2-1.0) Aspartate Amino Transf (AST/SGOT) 16 U/L (15-37) Alanine Aminotransferase (ALT/SGPT) 13 U/L (14-59) Alkaline Phosphatase 85 U/L (46-116) Total Protein 6.7 g/dL (6.4-8.2) Albumin 2.1 g/dL (3.4-5.0) Albumin/Globulin Ratio 0.5 (1.0-1.7) Laboratory Tests Test 07/12/21 07:41 07/12/21 08:50 07/12/21 10:57 Glucose (Fingerstick) 83 mg/dL (70-99) 141 mg/dL (70-99) White Blood Count 9.4 x10^3/uL (4.0-11.0) Red Blood Count 3.22 x10^6/uL (3.50-5.40) Hemoglobin 8.9 g/dL (12.0-15.5) Hematocrit 27.9 % (36.0-47.0) Mean Corpuscular Volume 87 fL (79-100) Mean Corpuscular Hemoglobin 28 pg (25-35) Mean Corpuscular Hemoglobin Concent 32 g/dL (31-37) Red Cell Distribution Width 17.4 % (11.5-14.5) Platelet Count 260 x10^3/uL (140-400) Neutrophils (%) (Auto) 66 % (31-73) Lymphocytes (%) (Auto) 16 % (24-48) Monocytes (%) (Auto) 13 % (0-9) Eosinophils (%) (Auto) 4 % (0-3) Basophils (%) (Auto) 1 % (0-3) Neutrophils # (Auto) 6.2 x10^3/uL (1.8-7.7) Lymphocytes # (Auto) 1.5 x10^3/uL (1.0-4.8) Monocytes # (Auto) 1.2 x10^3/uL (0.0-1.1) Eosinophils # (Auto) 0.4 x10^3/uL (0.0-0.7) Basophils # (Auto) 0.1 x10^3/uL (0.0-0.2) Sodium Level 140 mmol/L (136-145) Potassium Level 4.1 mmol/L (3.5-5.1) Chloride Level 105 mmol/L (98-107) Carbon Dioxide Level 27 mmol/L (21-32) Anion Gap 8 (6-14) Blood Urea Nitrogen 16 mg/dL (7-20) Creatinine 1.2 mg/dL (0.6-1.0) Estimated GFR (Cockcroft-Gault) 42.6 BUN/Creatinine Ratio 13 (6-20) Glucose Level 78 mg/dL (70-99) Calcium Level 8.7 mg/dL (8.5-10.1) Total Bilirubin 0.3 mg/dL (0.2-1.0) Aspartate Amino Transf (AST/SGOT) 16 U/L (15-37) Alanine Aminotransferase (ALT/SGPT) 13 U/L (14-59) Alkaline Phosphatase 85 U/L (46-116) Total Protein 6.7 g/dL (6.4-8.2) Albumin 2.1 g/dL (3.4-5.0) Albumin/Globulin Ratio 0.5 (1.0-1.7) Medications Active Scripts Medications Dose Route/Sig Max Daily Dose Days Date Category Ativan (Lorazepam) 1 Mg Tablet 1 Mg PO PRN BID PRN 7 06/16/21 Rx Hydrocodone-Apap 5-325 (Hydrocodone Bit/Acetaminophen) 1 Tab Tablet 1 Tab PO PRN Q6-8HRS PRN 7 06/16/21 Rx Diltiazem 24Hr ER (LA) (Diltiazem HCl) 180 Mg Tab.er.24h 1 Tab PO DAILY 30 06/13/21 Reported Xalatan (Latanoprost) 2.5 Ml Drops 1 Drop OU BID 06/11/21 Reported Triamterene-Hctz 37.5-25 Mg Cp (Triamterene/Hydrochlorothiazid) 1 Each Capsule 1 Cap PO DAILY 06/11/21 Reported Ventolin Hfa Inhaler (Albuterol Sulfate) 18 Gm Hfa.aer.ad 2 Puff INH PRN Q4HRS PRN 06/11/21 Reported Singulair Tablet (Montelukast Sodium) 10 Mg Tablet 10 Mg PO HS 06/11/21 Reported Duoneb 0.5-3(2.5) Mg/3 Ml (Albuterol/Ipratropium) 3 Ml Ampul.neb 3 Ml NEB QID 06/11/21 Reported Lantus Solostar (Insulin Glargine,Hum.rec.anlog) 100 Unit/1 Ml Insuln.pen 30 Unit SQ QHS 06/11/21 Reported Eliquis (Apixaban) 5 Mg Tablet 5 Mg PO BID 06/11/21 Reported Cozaar (Losartan Potassium) 25 Mg Tablet 25 Mg PO DAILY 06/11/21 Reported Cosopt Eye Drops (Dorzolamide Hcl/Timolol Maleat) 10 Ml Drops 1 Drop EACHEYE BID 06/11/21 Reported Atorvastatin Calcium 10 Mg Tablet 10 Mg PO HS 06/11/21 Reported Admelog (Insulin Lispro) 100 Unit/1 Ml Vial 8 Unit SQ TIDAC 06/11/21 Reported Admelog (Insulin Lispro) 100 Unit/1 Ml Vial 0-12 Unit SQ TIDWMEALS 06/11/21 Reported Acetaminophen 325 Mg Tablet 2 Tab PO PRN Q6HRS PRN 30 06/11/21 Reported Impression . Acute hypoxemic respiratory failure, multifactorial Abnormal chest x-ray Possible pulmonary edema, possible pneumonia Obtain CT chest HEATHER HELTON MD Jul 12, 2021 12:52
--- NOTE | 2021-07-12 13:09 | CONS ---
DATE OF CONSULTATION: 07/12/2021 ATTENDING PHYSICIAN: Carloz Ca MD. REASON FOR CONSULTATION: The patient is seen in pulmonary consultation at the request of Dr. Ca for abnormal x-ray. HISTORY OF PRESENT ILLNESS: The patient is an 86-year-old with a history of dementia. She presented from skilled nursing with a history of type 2 diabetes, neuropathy, and major depressive disorder. The patient was seen in the emergency room on 07/11 with altered mental status. There was also concern about her x-ray. She was transferred to [facility] for further care. She recently was admitted for ORIF for hip fracture complicated by pneumonia. She has been seen by Infectious Disease service. She is currently on multiple antibiotics including cefepime and linezolid. The patient is currently on oxygen supplementation. She is awake. She states that she wants to . Otherwise, no significant history is obtained per the patient herself. I reviewed her x-ray, which revealed bilateral pulmonary infiltrates and left-sided effusion. PAST MEDICAL HISTORY: Diabetes; COPD, apparently according to the patient, she has never smoked. There is a history of paroxysmal AFib, chronic kidney disease, dementia. REVIEW OF SYSTEMS: As indicated above, otherwise other systems could not be adequately reviewed. ALLERGIES: PENICILLIN AND IBUPROFEN. CURRENT MEDICATIONS: List was reviewed. PHYSICAL EXAMINATION: VITAL SIGNS: Stable. O2 saturation was greater than 92%, currently on 3 liters. Since admission, she has been afebrile. HEENT: Eyes: The sclerae were nonicteric. NECK: Jugular venous distention could not be assessed secondary to body habitus. CHEST: Full expansion. LUNGS: Diminished breath sounds in the bases. No wheezes. CARDIOVASCULAR: Regular rate and rhythm with S1, S2, no S3. ABDOMEN: Soft. EXTREMITIES: No clubbing or cyanosis. Minimal edema. LABORATORY DATA: White count was 9.4, hemoglobin and hematocrit were noted. BUN and creatinine were noted. Creatinine was slightly elevated. Total protein was 6.7, albumin was 1.1. IMPRESSION: 1. Acute hypoxemic respiratory failure, multifactorial. 2. Possible bacterial pneumonia. 3. Bilateral pulmonary infiltrates on chest x-ray, compatible with possible pulmonary edema, left-sided effusion. 4. Multifactorial encephalopathy. 5. Recent open reduction and internal fixation for hip fracture. 6. SARS-CoV-2 was negative. 7. Other comorbidities including type 2 diabetes, neuropathy, dementia, major depressive disorder, allergic rhinitis, and atrial fibrillation. PLAN: 1. Continue antibiotics per ID. 2. Obtain CT chest, the patient may benefit from thoracentesis. 3. Continue home meds. 4. I will review CT and make further recommendations. Dr. Ca, I do appreciate the privilege in sharing in the patient's care. HANNAH/GIBRAN DR: Mayo TID: [id number]
[2021-07-12 15:00] VITALS: BP 107/63
[2021-07-12 19:00] VITALS: BP 99/54
[2021-07-12] MEDS: MONTELUKAST SODIUM 10 MG TABLET. PO SCH (21:00)
[2021-07-12] MEDS: ATORVASTATIN CALCIUM 10 MG TABLET. PO SCH (21:00)
[2021-07-12] MEDS: LACTOBACILLUS RHAMNOSUS GG 1 CAPSULE. PO SCH (21:00)
[2021-07-12 23:00] VITALS: BP 96/63
[2021-07-13] MEDS: OLANZapine 2.5 MG TABLET PO PRN ×2 (00:18→21:10)
[2021-07-13 03:07] VITALS: BP 118/57
--- NOTE | 2021-07-13 03:58 | RAD ---
CT THORAX WO History: Reason: effusion / Spl. Instructions: / History: Technique: Noncontrast examination of the abdomen and pelvis. Coronal and sagittal reconstructions we re performed. Exposure: One or more of the following individualized dose reduction techniques were utilized for thi s examination: 1. Automated exposure control 2. Adjustment of the mA and/or kV according to patient size 3. Use of iterative reconstruction technique. Comparison: June 28, 2020 Findings: Lower chest: Multiple mildly prominent mediastinal lymph nodes largest pretracheal lymph node measure s 1.7 x 1.1 cm. Coronary artery calcifications. Extensive atheromatous plaque within the aorta. Moderate bilateral pleural effusions with adjacent atelectasis or consolidations. Additional scattere d linear atelectasis. Mild right upper lobe groundglass opacities. Abdomen and pelvis: Bilateral adrenal gland thickening with nodularity, right greater than left. Bones: Right glenohumeral DJD. Multilevel thoracic spondylosis. Impression: 1. Moderate bilateral pleural effusions with adjacent atelectasis or consolidations. 2. Mild right upper lobe groundglass opacities, may represent infectious or inflammatory process. 3. Mildly prominent mediastinal lymph nodes, likely reactive. 4. Increased bilateral adrenal gland nodular thickening. Recommend follow-up adrenal protocol CT or MRI. Electronically signed by: Aaron Peña DO (07/13/2021 3:56 AM) [facility]
--- NOTE | 2021-07-13 05:54 | PDOC ---
PULMONARY PROGRESS NOTES DATE: 07/13/21 TIME: 05:52 Subjective Patient less confused awake alert no respiratory distress Vitals Vital Signs Date Time Temp Pulse Resp B/P (MAP) Pulse Ox O2 Delivery O2 Flow Rate FiO2 07/13/21 03:07 98.8 114 21 118/57 (77) 93 Nasal Cannula 2.0 98.8 Lungs: Clear, Other (Diminished breath sounds in the base) Cardiovascular: S1, S2 Abdomen: Soft Neuro Exam: Alert Extremities: No Edema Skin: Warm Labs Laboratory Tests Test 07/12/21 07:41 07/12/21 08:50 07/12/21 10:57 07/12/21 15:46 Glucose (Fingerstick) 83 mg/dL (70-99) 141 mg/dL (70-99) 138 mg/dL (70-99) White Blood Count 9.4 x10^3/uL (4.0-11.0) Red Blood Count 3.22 x10^6/uL (3.50-5.40) Hemoglobin 8.9 g/dL (12.0-15.5) Hematocrit 27.9 % (36.0-47.0) Mean Corpuscular Volume 87 fL (79-100) Mean Corpuscular Hemoglobin 28 pg (25-35) Mean Corpuscular Hemoglobin Concent 32 g/dL (31-37) Red Cell Distribution Width 17.4 % (11.5-14.5) Platelet Count 260 x10^3/uL (140-400) Neutrophils (%) (Auto) 66 % (31-73) Lymphocytes (%) (Auto) 16 % (24-48) Monocytes (%) (Auto) 13 % (0-9) Eosinophils (%) (Auto) 4 % (0-3) Basophils (%) (Auto) 1 % (0-3) Neutrophils # (Auto) 6.2 x10^3/uL (1.8-7.7) Lymphocytes # (Auto) 1.5 x10^3/uL (1.0-4.8) Monocytes # (Auto) 1.2 x10^3/uL (0.0-1.1) Eosinophils # (Auto) 0.4 x10^3/uL (0.0-0.7) Basophils # (Auto) 0.1 x10^3/uL (0.0-0.2) Sodium Level 140 mmol/L (136-145) Potassium Level 4.1 mmol/L (3.5-5.1) Chloride Level 105 mmol/L (98-107) Carbon Dioxide Level 27 mmol/L (21-32) Anion Gap 8 (6-14) Blood Urea Nitrogen 16 mg/dL (7-20) Creatinine 1.2 mg/dL (0.6-1.0) Estimated GFR (Cockcroft-Gault) 42.6 BUN/Creatinine Ratio 13 (6-20) Glucose Level 78 mg/dL (70-99) Calcium Level 8.7 mg/dL (8.5-10.1) Total Bilirubin 0.3 mg/dL (0.2-1.0) Aspartate Amino Transf (AST/SGOT) 16 U/L (15-37) Alanine Aminotransferase (ALT/SGPT) 13 U/L (14-59) Alkaline Phosphatase 85 U/L (46-116) Total Protein 6.7 g/dL (6.4-8.2) Albumin 2.1 g/dL (3.4-5.0) Albumin/Globulin Ratio 0.5 (1.0-1.7) Test 07/12/21 20:49 Glucose (Fingerstick) 234 mg/dL (70-99) Laboratory Tests Test 07/12/21 07:41 07/12/21 08:50 07/12/21 10:57 07/12/21 15:46 Glucose (Fingerstick) 83 mg/dL (70-99) 141 mg/dL (70-99) 138 mg/dL (70-99) White Blood Count 9.4 x10^3/uL (4.0-11.0) Red Blood Count 3.22 x10^6/uL (3.50-5.40) Hemoglobin 8.9 g/dL (12.0-15.5) Hematocrit 27.9 % (36.0-47.0) Mean Corpuscular Volume 87 fL (79-100) Mean Corpuscular Hemoglobin 28 pg (25-35) Mean Corpuscular Hemoglobin Concent 32 g/dL (31-37) Red Cell Distribution Width 17.4 % (11.5-14.5) Platelet Count 260 x10^3/uL (140-400) Neutrophils (%) (Auto) 66 % (31-73) Lymphocytes (%) (Auto) 16 % (24-48) Monocytes (%) (Auto) 13 % (0-9) Eosinophils (%) (Auto) 4 % (0-3) Basophils (%) (Auto) 1 % (0-3) Neutrophils # (Auto) 6.2 x10^3/uL (1.8-7.7) Lymphocytes # (Auto) 1.5 x10^3/uL (1.0-4.8) Monocytes # (Auto) 1.2 x10^3/uL (0.0-1.1) Eosinophils # (Auto) 0.4 x10^3/uL (0.0-0.7) Basophils # (Auto) 0.1 x10^3/uL (0.0-0.2) Sodium Level 140 mmol/L (136-145) Potassium Level 4.1 mmol/L (3.5-5.1) Chloride Level 105 mmol/L (98-107) Carbon Dioxide Level 27 mmol/L (21-32) Anion Gap 8 (6-14) Blood Urea Nitrogen 16 mg/dL (7-20) Creatinine 1.2 mg/dL (0.6-1.0) Estimated GFR (Cockcroft-Gault) 42.6 BUN/Creatinine Ratio 13 (6-20) Glucose Level 78 mg/dL (70-99) Calcium Level 8.7 mg/dL (8.5-10.1) Total Bilirubin 0.3 mg/dL (0.2-1.0) Aspartate Amino Transf (AST/SGOT) 16 U/L (15-37) Alanine Aminotransferase (ALT/SGPT) 13 U/L (14-59) Alkaline Phosphatase 85 U/L (46-116) Total Protein 6.7 g/dL (6.4-8.2) Albumin 2.1 g/dL (3.4-5.0) Albumin/Globulin Ratio 0.5 (1.0-1.7) Test 07/12/21 20:49 Glucose (Fingerstick) 234 mg/dL (70-99) Medications Active Scripts Medications Dose Route/Sig Max Daily Dose Days Date Category Ativan (Lorazepam) 1 Mg Tablet 1 Mg PO PRN BID PRN 7 06/16/21 Rx Hydrocodone-Apap 5-325 (Hydrocodone Bit/Acetaminophen) 1 Tab Tablet 1 Tab PO PRN Q6-8HRS PRN 7 06/16/21 Rx Diltiazem 24Hr ER (LA) (Diltiazem HCl) 180 Mg Tab.er.24h 1 Tab PO DAILY 30 06/13/21 Reported Xalatan (Latanoprost) 2.5 Ml Drops 1 Drop OU BID 06/11/21 Reported Triamterene-Hctz 37.5-25 Mg Cp (Triamterene/Hydrochlorothiazid) 1 Each Capsule 1 Cap PO DAILY 06/11/21 Reported Ventolin Hfa Inhaler (Albuterol Sulfate) 18 Gm Hfa.aer.ad 2 Puff INH PRN Q4HRS PRN 06/11/21 Reported Singulair Tablet (Montelukast Sodium) 10 Mg Tablet 10 Mg PO HS 06/11/21 Reported Duoneb 0.5-3(2.5) Mg/3 Ml (Albuterol/Ipratropium) 3 Ml Ampul.neb 3 Ml NEB QID 06/11/21 Reported Lantus Solostar (Insulin Glargine,Hum.rec.anlog) 100 Unit/1 Ml Insuln.pen 30 Unit SQ QHS 06/11/21 Reported Eliquis (Apixaban) 5 Mg Tablet 5 Mg PO BID 06/11/21 Reported Cozaar (Losartan Potassium) 25 Mg Tablet 25 Mg PO DAILY 06/11/21 Reported Cosopt Eye Drops (Dorzolamide Hcl/Timolol Maleat) 10 Ml Drops 1 Drop EACHEYE BID 06/11/21 Reported Atorvastatin Calcium 10 Mg Tablet 10 Mg PO HS 06/11/21 Reported Admelog (Insulin Lispro) 100 Unit/1 Ml Vial 8 Unit SQ TIDAC 06/11/21 Reported Admelog (Insulin Lispro) 100 Unit/1 Ml Vial 0-12 Unit SQ TIDWMEALS 06/11/21 Reported Acetaminophen 325 Mg Tablet 2 Tab PO PRN Q6HRS PRN 30 06/11/21 Reported Impression . IMPRESSION: 1. Acute hypoxemic respiratory failure, multifactorial. 2. Possible bacterial pneumonia. 3. Bilateral pulmonary infiltrates on chest x-ray, compatible with possible pulmonary edema, left-sided effusion. 4. Multifactorial encephalopathy. 5. Recent open reduction and internal fixation for hip fracture. 6. SARS-CoV-2 was negative. 7. Other comorbidities including type 2 diabetes, neuropathy, dementia, major depressive disorder, allergic rhinitis, and atrial fibrillation. CT chest reviewed Impression: 1. Moderate bilateral pleural effusions with adjacent atelectasis or consolidations. 2. Mild right upper lobe groundglass opacities, may represent infectious or inflammatory process. 3. Mildly prominent mediastinal lymph nodes, likely reactive. 4. Increased bilateral adrenal gland nodular thickening. Recommend follow-up adrenal protocol CT or MRI. Plan . Schedule thoracentesis in the a.m. with interventional radiologist, need to discuss with family Continue current support Empiric antibiotics Diurese PLAN: 1. Continue antibiotics per ID. 2. Obtain CT chest, the patient may benefit from thoracentesis. 3. Continue home meds. 4. I will review CT and make further recommendations. Dr. Ca, I do appreciate the privilege in sharing in the patient's care. HEATHER HELTON MD Jul 13, 2021 05:54
[2021-07-13] MEDS: IPRATRPIUM/ALBUTEROL 0.5/2.5MG 3 ML NEBU. NEB SCH ×4 (06:17→20:15)
[2021-07-13 07:00] VITALS: BP 107/66
[2021-07-13] MEDS: INSULIN LISPRO 300 UNITS/3 ML VIAL. SQ SCH ×3 (08:00→17:00)
--- NOTE | 2021-07-13 08:56 | PDOC ---
Infectious Disease Note Subjective: Subjective Patient more alert today pleasantly confused which appears to be baseline On O2 by nasal cannula Vital Signs: Vital Signs Vital Signs Date Time Temp Pulse Resp B/P (MAP) Pulse Ox O2 Delivery O2 Flow Rate FiO2 07/13/21 07:00 97.9 115 26 107/66 (80) 97 Nasal Cannula 2.0 97.9 Physical Exam: PHYSICAL EXAM GENERAL: Patient alert awake confused appears comfortable, nontoxic-appearing HEENT: Normocephalic, atraumatic. Anicteric. No thrush. Oral mucosa moist. NECK: Supple. LUNGS: Decreased breath sounds at the bases. No accessory muscle use. No wheezing. HEART: S1, S2. Irregular no murmurs. ABDOMEN: Soft, nontender, nondistended. EXTREMITIES: No edema, no cyanosis. DERMATOLOGIC: Warm, dry, no generalized rash. NEUROLOGIC: Lethargic, sleepy, arousable. PSYCHIATRIC: Unable to assess. Medications: Inpatient Meds: Medications reviewed. Labs: Lab Laboratory Tests Test 07/12/21 10:57 07/12/21 15:46 07/12/21 20:49 07/13/21 08:34 Glucose (Fingerstick) 141 mg/dL (70-99) 138 mg/dL (70-99) 234 mg/dL (70-99) 202 mg/dL (70-99) Objective: Assessment: 1. Acute hypoxic respiratory failure, likely aspiration pneumonia. CT chest noted 2. Underlying chronic obstructive pulmonary disease and mild intermittent asthma. 3. Encephalopathy with underlying dementia. 4. Chronic kidney disease. 5. Diabetes mellitus with neuropathy. 6. Right ankle ulcer. 7. CHF, atrial fibrillation 8 History of ALLERGIES TO PENICILLIN intermediate, has tolerated Keflex per pharmacy. Plan: Plan of Care Continue cefepime and linezolid Monitor labs and cultures Maintain aspiration precaution Continue supportive care GEO MCDONALD MD Jul 13, 2021 08:56
[2021-07-13] MEDS: CEFEPIME HCL IV Push 1 GM VIAL. IVP SCH ×2 (09:22→21:09)
[2021-07-13] MEDS: FUROSEMIDE 40 MG/4 ML VIAL. IVP SCH (09:22)
--- NOTE | 2021-07-13 10:29 | PN ---
DATE: 07/13/2021 SUBJECTIVE: The patient is resting, slightly propped up in bed, sleeping comfortably. According to nursing staff, she has not slept the whole night, yelling, restless, agitated despite getting olanzapine twice. PHYSICAL EXAMINATION: GENERAL: When I examined her, she was pale, not jaundiced or cyanosed. No lymphadenopathy. No thyromegaly. No jugular venous distention. No limb edema. VITAL SIGNS: Her heart rate was 115, blood pressure was 107/66, temperature 97.9, respiratory rate was 26 and oxygen saturation was 97% on 2 liters of oxygen. HEAD, EYES, EARS, NOSE, AND THROAT: Showed she is normocephalic, atraumatic. NECK: Supple. HEART: Showed normal first and second heart sounds, no gallop, rub or murmur. CHEST: Clear to auscultation, no crepitation or rhonchi. ABDOMEN: Distended, soft, nontender. NEUROLOGIC: She was demented, but without any obvious lateralizing sign. Her intake and output are incompletely recorded. LABORATORY DATA: Today's labs are still pending at the time of this dictation. ASSESSMENT: 1. Acute on chronic hypoxic respiratory failure. She is now on 4 liters of oxygen by nasal cannula. 2. Acute on chronic diastolic congestive heart failure. 3. Chronic obstructive pulmonary disease. 4. Aspiration pneumonia. 5. Atrial fibrillation versus multifocal atrial tachycardia for which she is on diltiazem. 6. She has right lower extremity deep vein thrombosis for which she is on apixaban. 7. Type 2 diabetes mellitus. 8. Hypertension. 9. Hypercholesterolemia. 10. Chronic kidney disease. PLAN: To continue with IV antibiotic as recommended by Infectious Disease specialist. Continue with IV Lasix. Continue with bronchodilators and montelukast. She apparently was seen by the welding machine operator resistance and recommended chest CT as well as thoracentesis by the interventional radiologist. KAREN/SEBASTIEN/ERICKA DR: Luisa TID: [id number]
[2021-07-13 11:00] VITALS: BP 110/46
--- NOTE | 2021-07-13 11:45 | PDOC ---
PROGRESS NOTES Date of Service: DATE: 07/13/21 TIME: 11:45 Subjective Subjective Dyspnea improved Objective Objective Vital Signs Date Time Temp Pulse Resp B/P (MAP) Pulse Ox O2 Delivery O2 Flow Rate FiO2 07/13/21 08:00 Nasal Cannula 2.0 07/13/21 07:00 97.9 115 26 107/66 (80) 97 97.9 Intake and Output 07/13/21 07:00 Intake Total 360 ml Output Total 400 ml Balance -40 ml Intake Oral 360 ml Output Urine Total 400 ml # Voids 6 Physical Exam Abdomen: Soft Heart: Other (Heart rate irregular) Extremities: No edema General: Alert, No acute distress HEENT: Atraumatic Lungs: Other (Decreased air entry bases) Neuro: Normal speech Psych/Mental Status: Mood NL Assessment Assessment 1. Acute hypoxic respiratory failure, multifactorial secondary to combination of acute on chronic diastolic heart failure and possible pneumonia. CT chest showed moderate bilateral pleural effusions. Pulmonary and ID teams following. 2. Acute on chronic diastolic heart failure: Better compensated after diuresis. 2D echo in February 2021 showed LVEF 55 to 60%, grade 2 diastolic dysfunction and mild aortic stenosis. Lexiscan nuclear stress test at that time did not show any significant ischemia. Continue current medical regimen. 3. Paroxysmal atrial fibrillation, presenting with atrial fibrillation with RVR. Heart rate better controlled presently with diltiazem. Continue Eliquis for stroke prophylaxis. 4. Hypertension: Controlled 5. Hyperlipidemia: Continue statins 6. Diabetes mellitus type 2: Treat per IM Comment Review of Relevant I have reviewed the following items del (where applicable) has been applied. Labs Laboratory Tests Test 07/12/21 15:46 07/12/21 20:49 07/13/21 08:34 Glucose (Fingerstick) 138 mg/dL (70-99) 234 mg/dL (70-99) 202 mg/dL (70-99) Medications Current Medications Lactobacillus Rhamnosus (Culturelle) 1 cap BID PO Last administered on 07/12/21at 21:00; Start 07/12/21 at 21:00 Olanzapine (ZyPREXA) 2.5 mg PRN Q4HRS PRN PO AGITATION Last administered on 07/13/21at 00:18; Start 07/12/21 at 23:00 Vitals/I & O Vital Sign - Last 24 Hours 07/12/21 07/12/21 07/12/219/21 15:00 15:48 19:00 20:24 Temp 98.4 98.6 98.4 98.6 Pulse 113 106 Resp 20 22 B/P (MAP) 107/63 (78) 99/54 (69) Pulse Ox 99 100 94 O2 Delivery Nasal Cannula Nasal Cannula Nasal Cannula O2 Flow Rate 3.0 4.0 4.0 07/12/21 07/12/21 07/13/21 07/13/21 20:27 23:00 03:07 06:16 Temp 98.2 98.8 98.2 98.8 Pulse 120 114 Resp 21 B/P (MAP) 96/63 (74) 118/57 (77) Pulse Ox 100 93 93 O2 Delivery Nasal Cannula Nasal Cannula Nasal Cannula O2 Flow Rate 5.0 2.0 3.0 07/13/21 07/13/21 07:00 08:00 Temp 97.9 97.9 Pulse 115 Resp 26 B/P (MAP) 107/66 (80) Pulse Ox 97 O2 Delivery Nasal Cannula Nasal Cannula O2 Flow Rate 2.0 2.0 Intake and Output 07/12/21 07/12/21 07/13/21 15:00 23:00 07:00 Intake Total 120 ml 120 ml 120 ml Output Total 400 ml Balance 120 ml -280 ml 120 ml KALEB GEE MD Jul 13, 2021 11:45
[2021-07-13] MEDS: LACTOBACILLUS RHAMNOSUS GG 1 CAPSULE. PO SCH ×2 (13:08→21:10)
[2021-07-13] MEDS: LOSARTAN POTASSIUM 25 MG TABLET. PO SCH (13:09)
[2021-07-13] MEDS: LINEZOLID 600 MG TABLET PO SCH ×2 (13:09→21:10)
[2021-07-13] MEDS: LATANOPROST 0.005% OPHTH SOLUTION 2.5ML BOTTLE. OU SCH ×2 (13:10→21:09)
[2021-07-13] MEDS: TIMOLOL 0.5% OPHTH SOLUTION 5ML BOTTLE. OU SCH ×2 (13:10→21:09)
[2021-07-13] MEDS: DORZOLAMIDE 2% OPHTH SOLUTION 10ML BOTTLE. OU SCH ×2 (13:10→21:09)
[2021-07-13 15:00] VITALS: BP 104/60
[2021-07-13 19:00] VITALS: BP 98/39
[2021-07-13] MEDS: MONTELUKAST SODIUM 10 MG TABLET. PO SCH (21:10)
[2021-07-13] MEDS: ATORVASTATIN CALCIUM 10 MG TABLET. PO SCH (21:10)
[2021-07-13 23:00] VITALS: BP 101/66
[2021-07-14] VITALS (9 sets, daily range): BP systolic 96–119; BP diastolic 50–89
[2021-07-14] MEDS: IPRATRPIUM/ALBUTEROL 0.5/2.5MG 3 ML NEBU. NEB SCH ×4 (07:48→21:00)
[2021-07-14] MEDS: INSULIN LISPRO 300 UNITS/3 ML VIAL. SQ SCH ×3 (08:00→17:00)
[2021-07-14] MEDS: LOSARTAN POTASSIUM 25 MG TABLET. PO SCH (09:00)
--- NOTE | 2021-07-14 09:09 | PDOC ---
Infectious Disease Note Subjective Subjective Patient more alert today pleasantly confused which appears to be baseline On O2 by nasal cannula ROS ROS no n/v/d/ Vital Sign Vital Signs Vital Signs Date Time Temp Pulse Resp B/P (MAP) Pulse Ox O2 Delivery O2 Flow Rate FiO2 07/14/21 07:48 95 Nasal Cannula 2.0 07/14/21 03:00 98.3 103 18 119/59 (79) 98.3 Physical Exam PHYSICAL EXAM GENERAL: Patient alert awake confused appears comfortable, nontoxic-appearing HEENT: Normocephalic, atraumatic. Anicteric. No thrush. Oral mucosa moist. NECK: Supple. LUNGS: Decreased breath sounds at the bases. No accessory muscle use. No wheezing. HEART: S1, S2. Irregular no murmurs. ABDOMEN: Soft, nontender, nondistended. EXTREMITIES: No edema, no cyanosis. DERMATOLOGIC: Warm, dry, no generalized rash. NEUROLOGIC: Lethargic, sleepy, arousable. PSYCHIATRIC: Unable to assess. Labs Lab Laboratory Tests Test 07/13/21 12:26 07/13/21 17:39 07/13/21 21:18 07/14/21 07:26 Glucose (Fingerstick) 157 mg/dL (70-99) 194 mg/dL (70-99) 173 mg/dL (70-99) 170 mg/dL (70-99) Objective Assessment 1. Acute hypoxic respiratory failure, likely aspiration pneumonia. CT chest noted 2. Underlying chronic obstructive pulmonary disease and mild intermittent asthma. 3. Encephalopathy with underlying dementia. 4. Chronic kidney disease. 5. Diabetes mellitus with neuropathy. 6. Right ankle ulcer. 7. CHF, atrial fibrillation 8 History of ALLERGIES TO PENICILLIN intermediate, has tolerated Keflex per pharmacy. Plan Plan of Care Continue cefepime and linezolid Monitor labs and cultures Maintain aspiration precaution Continue supportive care BRADLEY MCDONALD MD Jul 14, 2021 09:09
--- NOTE | 2021-07-14 09:29 | PDOC ---
PULMONARY PROGRESS NOTES DATE: 07/14/21 TIME: 09:29 Subjective No signs of respiratory distress patient Appears to be less cough Vitals Vital Signs Date Time Temp Pulse Resp B/P (MAP) Pulse Ox O2 Delivery O2 Flow Rate FiO2 07/14/21 07:48 95 Nasal Cannula 2.0 07/14/21 07:00 97.7 105 16 113/74 (87) 97.7 Lungs: Clear, Other (Diminished breath sounds in the base) Cardiovascular: S1, S2 Abdomen: Soft Neuro Exam: Alert Extremities: No Edema Skin: Warm Labs Laboratory Tests Test 07/12/21 10:57 07/12/21 15:46 07/12/21 20:49 07/13/21 08:34 Glucose (Fingerstick) 141 mg/dL (70-99) 138 mg/dL (70-99) 234 mg/dL (70-99) 202 mg/dL (70-99) Test 07/13/21 12:26 07/13/21 17:39 07/13/21 21:18 07/14/21 07:26 Glucose (Fingerstick) 157 mg/dL (70-99) 194 mg/dL (70-99) 173 mg/dL (70-99) 170 mg/dL (70-99) Laboratory Tests Test 07/13/21 12:26 07/13/21 17:39 07/13/21 21:18 07/14/21 07:26 Glucose (Fingerstick) 157 mg/dL (70-99) 194 mg/dL (70-99) 173 mg/dL (70-99) 170 mg/dL (70-99) Medications Active Scripts Medications Dose Route/Sig Max Daily Dose Days Date Category Ativan (Lorazepam) 1 Mg Tablet 1 Mg PO PRN BID PRN 7 06/16/21 Rx Hydrocodone-Apap 5-325 (Hydrocodone Bit/Acetaminophen) 1 Tab Tablet 1 Tab PO PRN Q6-8HRS PRN 7 06/16/21 Rx Diltiazem 24Hr ER (LA) (Diltiazem HCl) 180 Mg Tab.er.24h 1 Tab PO DAILY 30 06/13/21 Reported Xalatan (Latanoprost) 2.5 Ml Drops 1 Drop OU BID 06/11/21 Reported Triamterene-Hctz 37.5-25 Mg Cp (Triamterene/Hydrochlorothiazid) 1 Each Capsule 1 Cap PO DAILY 06/11/21 Reported Ventolin Hfa Inhaler (Albuterol Sulfate) 18 Gm Hfa.aer.ad 2 Puff INH PRN Q4HRS PRN 06/11/21 Reported Singulair Tablet (Montelukast Sodium) 10 Mg Tablet 10 Mg PO HS 06/11/21 Reported Duoneb 0.5-3(2.5) Mg/3 Ml (Albuterol/Ipratropium) 3 Ml Ampul.neb 3 Ml NEB QID 06/11/21 Reported Lantus Solostar (Insulin Glargine,Hum.rec.anlog) 100 Unit/1 Ml Insuln.pen 30 Unit SQ QHS 06/11/21 Reported Eliquis (Apixaban) 5 Mg Tablet 5 Mg PO BID 06/11/21 Reported Cozaar (Losartan Potassium) 25 Mg Tablet 25 Mg PO DAILY 06/11/21 Reported Cosopt Eye Drops (Dorzolamide Hcl/Timolol Maleat) 10 Ml Drops 1 Drop EACHEYE BID 06/11/21 Reported Atorvastatin Calcium 10 Mg Tablet 10 Mg PO HS 06/11/21 Reported Admelog (Insulin Lispro) 100 Unit/1 Ml Vial 8 Unit SQ TIDAC 06/11/21 Reported Admelog (Insulin Lispro) 100 Unit/1 Ml Vial 0-12 Unit SQ TIDWMEALS 06/11/21 Reported Acetaminophen 325 Mg Tablet 2 Tab PO PRN Q6HRS PRN 30 06/11/21 Reported Impression . IMPRESSION: 1. Acute hypoxemic respiratory failure, multifactorial. 2. Possible bacterial pneumonia. 3. Bilateral pulmonary infiltrates on chest x-ray, compatible with possible pulmonary edema, left-sided effusion. 4. Multifactorial encephalopathy. 5. Recent open reduction and internal fixation for hip fracture. 6. SARS-CoV-2 was negative. 7. Other comorbidities including type 2 diabetes, neuropathy, dementia, major depressive disorder, allergic rhinitis, and atrial fibrillation. CT chest reviewed Impression: 1. Moderate bilateral pleural effusions with adjacent atelectasis or consolidations. 2. Mild right upper lobe groundglass opacities, may represent infectious or inflammatory process. 3. Mildly prominent mediastinal lymph nodes, likely reactive. 4. Increased bilateral adrenal gland nodular thickening. Recommend follow-up adrenal protocol CT or MRI. Plan . Updated 07/14 Discussed with interventional radiologist Proceed with thoracentesis Updated 07/13 Schedule thoracentesis in the a.m. with interventional radiologist, need to discuss with family Continue current support Empiric antibiotics HEATHER Tapia MD Jul 14, 2021 09:29
--- NOTE | 2021-07-14 09:39 | PDOC ---
MALLORY JONES NURSING TECH 07/14/21 0939: CARDIO Progress Notes Date and Time Date of Service 07/14/21 Time of Evaluation 0930 Subjective Subjective: No Chest Pain, No shortness of breath, No Palpitations Vitals Vitals Vital Signs Date Time Temp Pulse Resp B/P (MAP) Pulse Ox O2 Delivery O2 Flow Rate FiO2 07/14/21 07:48 95 Nasal Cannula 2.0 07/14/21 07:00 97.7 105 16 113/74 (87) 97.7 Weight Weight [ ] Input and Output Intake and Output Intake and Output 07/14/21 07:00 Intake Total 600 ml Balance 600 ml Intake Oral 600 ml # Voids 5 # Bowel Movements 2 Laboratory Labs Laboratory Tests Test 07/13/21 12:26 07/13/21 17:39 07/13/21 21:18 07/14/21 07:26 Glucose (Fingerstick) 157 mg/dL (70-99) 194 mg/dL (70-99) 173 mg/dL (70-99) 170 mg/dL (70-99) Physical Exam HEENT: Neck Supple W Full Motion Chest: Symmetric Heart: irregularly irregular Abdomen: Soft N/T Extremities: No Edema Neurology: alert, follow commands, confused Assessment Assessment 1. Acute respiratory failure with CHF and probable aspiration PNA. CT chest with moderate bilateral pleural effusions. 2. Acute on chronic diastolic CHF; Recent echo with preserved LV systolic function and mild aortic stenosis. MPI 02/21 without significant ischemia. improved s/p IV diuresis 3. PAFIB with intermittent RVR. [facility] Card[facility] for rate control[facility] Recent event monitor with SR PAT. No evidence of AFIB 4. Hypertension; low end. 5. Hyperlipidmia; statin 6. Diabetes, II 7. HANNA on CKD 8. Dementia 9. H/o DVT on Eliquis therapy Recommendations Unable to uptitrate Cardizem due to low end blood pressure Will give dose of IV Bryson x1 now. Poor candidate for routine Dig due to low CrCl Discontinue losartan Consider using metoprolol rather than Cardizem for rate control if BP remains low Will hold additional IV diuresis as Cr is trending ^ Ongoing antibiotic therapy as per ID. Justicifation of Admission Dx: Justifications for Admission: Justification of Admission Dx: Yes KALEB GEE MD 07/14/212055: CARDIO Progress Notes Assessment Assessment Patient seen and examined. Agree with CALL CENTER ASSISTANT's assessment and plan. PAF, rate controlled Ac on chr diast HF better compensated Pulm planning thoracentesis today MALLORY JONES APRN Jul 14, 2021 09:39 KALEB GEE MD Jul 14, 2021 20:56
--- NOTE | 2021-07-14 09:52 | PN ---
DATE: 07/14/2021 SUBJECTIVE: The patient is resting, slightly propped up in bed, no apparent distress, awake, alert, but confused. Denied any complaint. The nursing staff did not voice any concerns. She is scheduled for thoracentesis. PHYSICAL EXAMINATION: GENERAL: When I examined her, she was pale, but no jaundice, cyanosis or thyromegaly. No jugular venous distention. No limb edema. VITAL SIGNS: Her heart rate was 105, blood pressure is 113/74, temperature 97.7, respiratory rate was 16 and oxygen saturation was 95%. PHYSICAL EXAMINATION: HEAD, EYES, EARS, NOSE, AND THROAT: Normocephalic, atraumatic. NECK: Supple. HEART: Showed normal first and second heart sounds. No gallop, rub or murmur. CHEST: Showed central trachea, equally reduced expansion, reduced air entry, vesicular breath sounds, very few scattered rhonchi. She has dull percussion noted and absent breath sounds both sides posteriorly. ABDOMEN: Distended, soft, nontender. NEUROLOGIC: She is demented, but without any obvious lateralizing sign. LABORATORY DATA: Her lab work this morning is still pending at the time of this dictation. Her intake and output were incompletely recorded. ASSESSMENT: 1. Acute hypoxic respiratory failure, multifactorial. 2. Acute on chronic diastolic congestive heart failure. 3. Paroxysmal atrial fibrillation. 4. Probably aspiration pneumonia. 5. Dysphagia. 6. Hypertension. 7. Hyperlipidemia. 8. Diabetes mellitus. 9. Dementia with sundowning. PLAN: To await for the results of the thoracentesis and decide the further management accordingly. STEPH DR: Luisa TID: [id number]
[2021-07-14 09:56] LABS: BASO % 1 % (0-3); EOS # 0.3 x10^3/uL (0.0-0.7); EOS % 4 % (0-3); HEMATOCRIT 29.4 % (36.0-47.0); HEMOGLOBIN 9.3 g/dL (12.0-15.5); LYMPH # 1.3 x10^3/uL (1.0-4.8); LYMPH % 16 % (24-48); MEAN CORPUSCULAR HEMOGLOBIN 28 pg (25-35); MEAN CORPUSCULAR HGB CONC 32 g/dL (31-37); MEAN CORPUSCULAR VOLUME 87 fL (79-100); MONO # 1.1 x10^3/uL (0.0-1.1); MONO % 14 % (0-9); NEUT # 5.5 x10^3/uL (1.8-7.7); NEUT % 66 % (31-73); PLATELET COUNT 300 x10^3/uL (140-400); RED BLOOD COUNT 3.39 x10^6/uL (3.50-5.40); RED CELL DISTRIBUTION WIDTH 18.5 % (11.5-14.5); WHITE BLOOD COUNT 8.3 x10^3/uL (4.0-11.0)
[2021-07-14 10:03] LABS: PROTHROMBIN TIME PATIENT 17.9 SEC (11.7-14.0)
[2021-07-14 10:08] LABS: CALCIUM 8.8 mg/dL (8.5-10.1); CREATININE 1.6 mg/dL (0.6-1.0); GFR 30.6; POTASSIUM 4.3 mmol/L (3.5-5.1)
[2021-07-14] MEDS: LACTOBACILLUS RHAMNOSUS GG 1 CAPSULE. PO SCH ×2 (10:58→19:56)
[2021-07-14] MEDS: LINEZOLID 600 MG TABLET PO SCH ×2 (10:58→19:56)
[2021-07-14] MEDS: DORZOLAMIDE 2% OPHTH SOLUTION 10ML BOTTLE. OU SCH ×2 (11:12→19:57)
[2021-07-14] MEDS: TIMOLOL 0.5% OPHTH SOLUTION 5ML BOTTLE. OU SCH ×2 (11:13→19:57)
[2021-07-14] MEDS: CEFEPIME HCL IV Push 1 GM VIAL. IVP SCH (11:13)
[2021-07-14] MEDS: LATANOPROST 0.005% OPHTH SOLUTION 2.5ML BOTTLE. OU SCH ×2 (11:13→19:57)
[2021-07-14] MEDS: FUROSEMIDE 40 MG/4 ML VIAL. IVP SCH (11:16)
--- NOTE | 2021-07-14 11:22 | NUR ---
SW following. Discussed with RN. SW verified pt is from [facility]. Pt getting a thoracentesis today. SW notified RN that pt will need a COVID test prior to return to facility. SW will continue to follow.
--- NOTE | 2021-07-14 15:02 | RAD ---
AP chest. HISTORY: Postthoracentesis, pleural effusions AP view was taken of the chest. There is a moderate left pleural effusion. There is been an improveme nt in the right pleural effusion compared to the prior image. There is hazy infiltrates or edema and the lungs. There is no pneumothorax. IMPRESSION: 1. Improved right pleural effusion. 2. Persistent left pleural effusion. 3. Hazy infiltrates or pulmonary edema. Electronically signed by: Sam Hewitt MD (07/14/2021 3:00 PM) [facility]
--- NOTE | 2021-07-14 15:08 | RAD ---
Ultrasound Guided Thoracentesis Indication: Adult female with bilateral pleural effusions, right greater than left. Consent: The procedure was explained in its entirety to the patient or the patients designated repres entative by a member of the treatment team, including a discussion of the risks, benefits and commonl y accepted alternatives to the procedure, as well as the expected consequences of not performing the procedure. Discussion of the risks included, but was not limited to, those that are most frequent an d those that are rare but possibly severe or life-threatening, as well as the possibility of unforese en complications. Sterility: The procedure was performed in its entirety using appropriate elements of sterile techniqu e. Technique and Findings: Following informed consent, the patient was prepped and draped in the usual s terile fashion. Ultrasound interrogation of the area of interest revealed a pleural effusion. Under ultrasound guidance, a 6 [place] Vhy-L-Repjovga catheter was inserted into the pleural space and 650 cc of thin yellow fluid was removed. The catheter was removed and hemostasis was achieved with manua l compression. Chest x-ray was ordered. Complications: No immediate Impression: 1. Ultrasound-guided right thoracentesis as described. Electronically signed by: Arnold Esparza MD (07/14/2021 3:06 PM) [id number]
[2021-07-14] MEDS ORDERED: DIGOXIN IV 500 MCG/2 ML AMPUL. IV ONE (15:45)
--- NOTE | 2021-07-14 15:59 | NUR ---
Wound/Ostomy Care Wound Type/Assessment: Patient seen per wound care consult regarding DFUs to the right lateral ankle and right heel. Wounds cleansed, assessed, and, measured. Patient is confused with minimal conversation. Wounds are reddened with purplish tent with no depth. Treatment Recommendations/Plan: Recommendations for skin prep and foam dressings to both wounds. Dressings applied. A foam placed on the coccyx for protection. No other wounds noted. Education provided: Unable to educate due to mental status. Offloading surface/device: We ordered bilateral heel medix for this patient. Patient repositioned to left side using wedge. Recommended Referrals/Tests: N/A Discharge Recommendations for dressings: Dressing change instructions left in room. No other wounds noted. Wound care will follow up on 07/22/21 for reassessment. Bed lowered and call light in reach.
[2021-07-14 16:58] LABS: BF CLARITY CLEAR; BF COLOR YELLOW; BF MON % 76 %; BF OTHER % 1 %; BF PMN % 23 %; BF RBC COUNT 1011 /cmm (Not Established); BF SOURCE PLEURAL; BF WBC COUNT 578 /cmm (Not Established)
[2021-07-14 16:59] LABS: PH,BODY FLUID 7.67
[2021-07-14] MEDS: OLANZapine 2.5 MG TABLET PO PRN (19:56)
[2021-07-14] MEDS: MONTELUKAST SODIUM 10 MG TABLET. PO SCH (19:56)
[2021-07-14] MEDS: ATORVASTATIN CALCIUM 10 MG TABLET. PO SCH (19:56)
[2021-07-15] MEDS: OLANZapine 2.5 MG TABLET PO PRN ×2 (00:50→22:54)
[2021-07-15 03:00] VITALS: BP 104/45
[2021-07-15 07:00] VITALS: BP 136/62
[2021-07-15] MEDS: IPRATRPIUM/ALBUTEROL 0.5/2.5MG 3 ML NEBU. NEB SCH ×4 (08:49→20:49)
--- NOTE | 2021-07-15 08:50 | PDOC ---
PULMONARY PROGRESS NOTES DATE: 07/15/21 TIME: 08:50 Subjective No signs of respiratory distress patient Appears to be less cough Vitals Vital Signs Date Time Temp Pulse Resp B/P (MAP) Pulse Ox O2 Delivery O2 Flow Rate FiO2 07/15/21 03:00 98.0 110 20 104/45 (64) 95 Nasal Cannula 2.0 98.0 Lungs: Clear, Other (Diminished breath sounds in the base) Cardiovascular: S1, S2 Abdomen: Soft Neuro Exam: Alert Extremities: No Edema Skin: Warm Labs Laboratory Tests Test 07/13/21 12:26 07/13/21 17:39 07/13/21 21:18 07/14/21 07:26 Glucose (Fingerstick) 157 mg/dL (70-99) 194 mg/dL (70-99) 173 mg/dL (70-99) 170 mg/dL (70-99) Test 07/14/21 09:20 07/14/21 10:52 07/14/21 13:30 07/14/21 14:56 White Blood Count 8.3 x10^3/uL (4.0-11.0) Red Blood Count 3.39 x10^6/uL (3.50-5.40) Hemoglobin 9.3 g/dL (12.0-15.5) Hematocrit 29.4 % (36.0-47.0) Mean Corpuscular Volume 87 fL (79-100) Mean Corpuscular Hemoglobin 28 pg (25-35) Mean Corpuscular Hemoglobin Concent 32 g/dL (31-37) Red Cell Distribution Width 18.5 % (11.5-14.5) Platelet Count 300 x10^3/uL (140-400) Neutrophils (%) (Auto) 66 % (31-73) Lymphocytes (%) (Auto) 16 % (24-48) Monocytes (%) (Auto) 14 % (0-9) Eosinophils (%) (Auto) 4 % (0-3) Basophils (%) (Auto) 1 % (0-3) Neutrophils # (Auto) 5.5 x10^3/uL (1.8-7.7) Lymphocytes # (Auto) 1.3 x10^3/uL (1.0-4.8) Monocytes # (Auto) 1.1 x10^3/uL (0.0-1.1) Eosinophils # (Auto) 0.3 x10^3/uL (0.0-0.7) Basophils # (Auto) 0.0 x10^3/uL (0.0-0.2) Prothrombin Time 17.9 SEC (11.7-14.0) Prothromb Time International Ratio 1.5 (0.8-1.1) Sodium Level 144 mmol/L (136-145) Potassium Level 4.3 mmol/L (3.5-5.1) Chloride Level 104 mmol/L (98-107) Carbon Dioxide Level 34 mmol/L (21-32) Anion Gap 6 (6-14) Blood Urea Nitrogen 22 mg/dL (7-20) Creatinine 1.6 mg/dL (0.6-1.0) Estimated GFR (Cockcroft-Gault) 30.6 Glucose Level 191 mg/dL (70-99) Calcium Level 8.8 mg/dL (8.5-10.1) Glucose (Fingerstick) 164 mg/dL (70-99) 199 mg/dL (70-99) Body Fluid Source Pleural Body Fluid Color Yellow Body Fluid Clarity Clear Body Fluid pH 7.67 Body Fluid Nucleated Cells 578 /cmm (Not Established) Body Fluid Mononuclear WBCs (%) 76 % Body Fluid Polymorphonuclear Cells 23 % Body Fluid Total RBCs Counted 1011 /cmm (Not Established) Body Fluid Other Cells (%) 1 % Test 07/14/21 19:26 07/15/21 08:27 Glucose (Fingerstick) 191 mg/dL (70-99) 180 mg/dL (70-99) Laboratory Tests Test 07/14/21 09:20 07/14/21 10:52 07/14/21 13:30 07/14/21 14:56 White Blood Count 8.3 x10^3/uL (4.0-11.0) Red Blood Count 3.39 x10^6/uL (3.50-5.40) Hemoglobin 9.3 g/dL (12.0-15.5) Hematocrit 29.4 % (36.0-47.0) Mean Corpuscular Volume 87 fL (79-100) Mean Corpuscular Hemoglobin 28 pg (25-35) Mean Corpuscular Hemoglobin Concent 32 g/dL (31-37) Red Cell Distribution Width 18.5 % (11.5-14.5) Platelet Count 300 x10^3/uL (140-400) Neutrophils (%) (Auto) 66 % (31-73) Lymphocytes (%) (Auto) 16 % (24-48) Monocytes (%) (Auto) 14 % (0-9) Eosinophils (%) (Auto) 4 % (0-3) Basophils (%) (Auto) 1 % (0-3) Neutrophils # (Auto) 5.5 x10^3/uL (1.8-7.7) Lymphocytes # (Auto) 1.3 x10^3/uL (1.0-4.8) Monocytes # (Auto) 1.1 x10^3/uL (0.0-1.1) Eosinophils # (Auto) 0.3 x10^3/uL (0.0-0.7) Basophils # (Auto) 0.0 x10^3/uL (0.0-0.2) Prothrombin Time 17.9 SEC (11.7-14.0) Prothromb Time International Ratio 1.5 (0.8-1.1) Sodium Level 144 mmol/L (136-145) Potassium Level 4.3 mmol/L (3.5-5.1) Chloride Level 104 mmol/L (98-107) Carbon Dioxide Level 34 mmol/L (21-32) Anion Gap 6 (6-14) Blood Urea Nitrogen 22 mg/dL (7-20) Creatinine 1.6 mg/dL (0.6-1.0) Estimated GFR (Cockcroft-Gault) 30.6 Glucose Level 191 mg/dL (70-99) Calcium Level 8.8 mg/dL (8.5-10.1) Glucose (Fingerstick) 164 mg/dL (70-99) 199 mg/dL (70-99) Body Fluid Source Pleural Body Fluid Color Yellow Body Fluid Clarity Clear Body Fluid pH 7.67 Body Fluid Nucleated Cells 578 /cmm (Not Established) Body Fluid Mononuclear WBCs (%) 76 % Body Fluid Polymorphonuclear Cells 23 % Body Fluid Total RBCs Counted 1011 /cmm (Not Established) Body Fluid Other Cells (%) 1 % Test 07/14/21 19:26 07/15/21 08:27 Glucose (Fingerstick) 191 mg/dL (70-99) 180 mg/dL (70-99) Medications Active Scripts Medications Dose Route/Sig Max Daily Dose Days Date Category Ativan (Lorazepam) 1 Mg Tablet 1 Mg PO PRN BID PRN 7 06/16/21 Rx Hydrocodone-Apap 5-325 (Hydrocodone Bit/Acetaminophen) 1 Tab Tablet 1 Tab PO PRN Q6-8HRS PRN 7 06/16/21 Rx Diltiazem 24Hr ER (LA) (Diltiazem HCl) 180 Mg Tab.er.24h 1 Tab PO DAILY 30 06/13/21 Reported Xalatan (Latanoprost) 2.5 Ml Drops 1 Drop OU BID 06/11/21 Reported Triamterene-Hctz 37.5-25 Mg Cp (Triamterene/Hydrochlorothiazid) 1 Each Capsule 1 Cap PO DAILY 06/11/21 Reported Ventolin Hfa Inhaler (Albuterol Sulfate) 18 Gm Hfa.aer.ad 2 Puff INH PRN Q4HRS PRN 06/11/21 Reported Singulair Tablet (Montelukast Sodium) 10 Mg Tablet 10 Mg PO HS 06/11/21 Reported Duoneb 0.5-3(2.5) Mg/3 Ml (Albuterol/Ipratropium) 3 Ml Ampul.neb 3 Ml NEB QID 06/11/21 Reported Lantus Solostar (Insulin Glargine,Hum.rec.anlog) 100 Unit/1 Ml Insuln.pen 30 Unit SQ QHS 06/11/21 Reported Eliquis (Apixaban) 5 Mg Tablet 5 Mg PO BID 06/11/21 Reported Cozaar (Losartan Potassium) 25 Mg Tablet 25 Mg PO DAILY 06/11/21 Reported Cosopt Eye Drops (Dorzolamide Hcl/Timolol Maleat) 10 Ml Drops 1 Drop EACHEYE BID 06/11/21 Reported Atorvastatin Calcium 10 Mg Tablet 10 Mg PO HS 06/11/21 Reported Admelog (Insulin Lispro) 100 Unit/1 Ml Vial 8 Unit SQ TIDAC 06/11/21 Reported Admelog (Insulin Lispro) 100 Unit/1 Ml Vial 0-12 Unit SQ TIDWMEALS 06/11/21 Reported Acetaminophen 325 Mg Tablet 2 Tab PO PRN Q6HRS PRN 30 06/11/21 Reported Impression . IMPRESSION: 1. Acute hypoxemic respiratory failure, multifactorial. 2. Possible bacterial pneumonia. 3. Bilateral pulmonary infiltrates on chest x-ray, compatible with possible pulmonary edema, left-sided effusion. 4. Multifactorial encephalopathy. 5. Recent open reduction and internal fixation for hip fracture. 6. SARS-CoV-2 was negative. 7. Other comorbidities including type 2 diabetes, neuropathy, dementia, major depressive disorder, allergic rhinitis, and atrial fibrillation. 8. Status post thoracentesis on the right removing [address] chest reviewed Impression: 1. Moderate bilateral pleural effusions with adjacent atelectasis or consolidations. 2. Mild right upper lobe groundglass opacities, may represent infectious or inflammatory process. 3. Mildly prominent mediastinal lymph nodes, likely reactive. 4. Increased bilateral adrenal gland nodular thickening. Recommend follow-up adrenal protocol CT or MRI. Plan . Updated 07/15 Patient in no respiratory distress Follow-up on analysis of pleural fluid Suspect transudate of effusion Discussed with at the bedside Okay to plan discharge for 07/16 updated 07/14 Discussed with interventional radiologist Proceed with thoracentesis Updated 07/13 Schedule thoracentesis in the a.m. with interventional radiologist, need to discuss with family Continue current support Empiric antibiotics HEATHER Tapia MD Jul 15, 2021 08:50
[2021-07-15] MEDS ORDERED: CEFEPIME HCL IV Push 1 GM VIAL. IVP SCH (09:00)
--- NOTE | 2021-07-15 09:19 | PDOC ---
Infectious Disease Note Subjective Subjective Patient more alert today pleasantly confused which appears to be baseline On O2 by nasal cannula ROS ROS No nausea vomiting diarrhea fever Vital Sign Vital Signs Vital Signs Date Time Temp Pulse Resp B/P (MAP) Pulse Ox O2 Delivery O2 Flow Rate FiO2 07/15/21 08:52 Nasal Cannula 2.0 07/15/21 07:00 97.7 119 18 136/62 (86) 93 97.7 Physical Exam PHYSICAL EXAM GENERAL: Patient alert awake confused appears comfortable, nontoxic-appearing HEENT: Normocephalic, atraumatic. Anicteric. No thrush. Oral mucosa moist. NECK: Supple. LUNGS: Decreased breath sounds at the bases. No accessory muscle use. No wheezing. HEART: S1, S2. Irregular no murmurs. ABDOMEN: Soft, nontender, nondistended. EXTREMITIES: No edema, no cyanosis. DERMATOLOGIC: Warm, dry, no generalized rash. NEUROLOGIC: Lethargic, sleepy, arousable. PSYCHIATRIC: Unable to assess. Labs Lab Laboratory Tests Test 07/14/21 09:20 07/14/21 10:52 07/14/21 13:30 07/14/21 14:56 White Blood Count 8.3 x10^3/uL (4.0-11.0) Red Blood Count 3.39 x10^6/uL (3.50-5.40) Hemoglobin 9.3 g/dL (12.0-15.5) Hematocrit 29.4 % (36.0-47.0) Mean Corpuscular Volume 87 fL (79-100) Mean Corpuscular Hemoglobin 28 pg (25-35) Mean Corpuscular Hemoglobin Concent 32 g/dL (31-37) Red Cell Distribution Width 18.5 % (11.5-14.5) Platelet Count 300 x10^3/uL (140-400) Neutrophils (%) (Auto) 66 % (31-73) Lymphocytes (%) (Auto) 16 % (24-48) Monocytes (%) (Auto) 14 % (0-9) Eosinophils (%) (Auto) 4 % (0-3) Basophils (%) (Auto) 1 % (0-3) Neutrophils # (Auto) 5.5 x10^3/uL (1.8-7.7) Lymphocytes # (Auto) 1.3 x10^3/uL (1.0-4.8) Monocytes # (Auto) 1.1 x10^3/uL (0.0-1.1) Eosinophils # (Auto) 0.3 x10^3/uL (0.0-0.7) Basophils # (Auto) 0.0 x10^3/uL (0.0-0.2) Prothrombin Time 17.9 SEC (11.7-14.0) Prothromb Time International Ratio 1.5 (0.8-1.1) Sodium Level 144 mmol/L (136-145) Potassium Level 4.3 mmol/L (3.5-5.1) Chloride Level 104 mmol/L (98-107) Carbon Dioxide Level 34 mmol/L (21-32) Anion Gap 6 (6-14) Blood Urea Nitrogen 22 mg/dL (7-20) Creatinine 1.6 mg/dL (0.6-1.0) Estimated GFR (Cockcroft-Gault) 30.6 Glucose Level 191 mg/dL (70-99) Calcium Level 8.8 mg/dL (8.5-10.1) Glucose (Fingerstick) 164 mg/dL (70-99) 199 mg/dL (70-99) Body Fluid Source Pleural Body Fluid Color Yellow Body Fluid Clarity Clear Body Fluid pH 7.67 Body Fluid Nucleated Cells 578 /cmm (Not Established) Body Fluid Mononuclear WBCs (%) 76 % Body Fluid Polymorphonuclear Cells 23 % Body Fluid Total RBCs Counted 1011 /cmm (Not Established) Body Fluid Other Cells (%) 1 % Test 07/14/21 19:26 07/15/21 08:27 Glucose (Fingerstick) 191 mg/dL (70-99) 180 mg/dL (70-99) Micro Fluid culture is negative Objective Assessment 1. Acute hypoxic respiratory failure, likely aspiration pneumonia. CT chest noted 2. Underlying chronic obstructive pulmonary disease and mild intermittent asthma. 3. Encephalopathy with underlying dementia. 4. Chronic kidney disease. 5. Diabetes mellitus with neuropathy. 6. Right ankle ulcer. 7. CHF, atrial fibrillation 8 History of ALLERGIES TO PENICILLIN intermediate, has tolerated Keflex per pharmacy. Plan Plan of Care Continue cefepime and linezolid,, changed to p.o. for discharge Monitor labs and cultures Maintain aspiration precaution Continue supportive care BRADLEY MCDONALD MD Jul 15, 2021 09:19
[2021-07-15] MEDS: DORZOLAMIDE 2% OPHTH SOLUTION 10ML BOTTLE. OU SCH ×2 (09:47→21:00)
[2021-07-15] MEDS: LINEZOLID 600 MG TABLET PO SCH ×2 (09:47→22:42)
[2021-07-15] MEDS: LACTOBACILLUS RHAMNOSUS GG 1 CAPSULE. PO SCH ×2 (09:47→22:42)
[2021-07-15] MEDS: LATANOPROST 0.005% OPHTH SOLUTION 2.5ML BOTTLE. OU SCH ×2 (09:48→22:44)
[2021-07-15] MEDS: TIMOLOL 0.5% OPHTH SOLUTION 5ML BOTTLE. OU SCH ×2 (09:48→22:43)
[2021-07-15] MEDS: INSULIN LISPRO 300 UNITS/3 ML VIAL. SQ SCH ×3 (10:00→17:56)
[2021-07-15 11:00] VITALS: BP 93/36
[2021-07-15 11:29] LABS: CALCIUM 8.8 mg/dL (8.5-10.1); CREATININE 1.8 mg/dL (0.6-1.0); GFR 26.7; POTASSIUM 4.2 mmol/L (3.5-5.1)
--- NOTE | 2021-07-15 11:49 | PN ---
DATE: 07/15/2021 SUBJECTIVE: The patient is sitting propped up in bed, eating her breakfast comfortably, in no apparent distress. The nursing staff did not voice any concerns, stated that she had uneventful night. She underwent thoracentesis yesterday and about 650 mL of yellow fluid was removed, had had a chest x-ray done, which showed improved right-sided pleural effusion, persistent left-sided pleural effusion. She continued to have hazy infiltrate with pulmonary edema; however, there is no pneumothorax. The patient has been on IV Lasix and her creatinine has jumped to 1.6 and therefore her Lasix was discontinued. PHYSICAL EXAMINATION: GENERAL: When I examined her this morning, she was pale, but no jaundice, cyanosis, no lymphadenopathy, no thyromegaly, no jugular venous distention. No lower limb edema. VITAL SIGNS: Her heart rate was 119, blood pressure is 136/62, temperature was 97.7, respiratory rate was 18 and oxygen saturation was 93% on 2 liters of oxygen. HEAD, EYES, EARS, NOSE, AND THROAT: Normocephalic, atraumatic. NECK: Supple. HEART: Showed normal first and second heart sounds, no gallop, rub or murmur. CHEST: Shows central trachea, equal bilateral chest expansion, air entry, vesicular breath sounds, very few scattered rhonchi anteriorly. She has dull percussion note posteriorly, more on the left side. ABDOMEN: Distended, soft, nontender. NEUROLOGIC: She is demented without any obvious lateralizing sign. Her intake over the last 24 hours was 600, no output was recorded. LABORATORY DATA: Today's labs are still pending at the time of this dictation. As of yesterday, her serum sodium was 144, potassium 4.3, chloride 104, bicarbonate 34, anion gap of 6, BUN 22, creatinine 1.6. Estimated GFR was 30 mL per minute. Her glucose 191, calcium was 8.8. Her white cell count was 8300, hemoglobin 9.3, hematocrit 29, MCV 87 and platelet count 300,000 with normal manual differential. ASSESSMENT: 1. Acute hypoxic respiratory failure, multifactorial. 2. Acute on chronic diastolic congestive heart failure. 3. Dysphagia. 4. Probably aspiration pneumonia. 5. Paroxysmal atrial fibrillation. 6. Hypertension. 7. Hyperlipidemia. 8. Diabetes mellitus. 9. Dementia with . PLAN: To continue with the IV antibiotic. Continue with the breathing treatment. Continue with PT, OT. I am hoping to discharge her back to [facility] tomorrow. KAREN/TATE DR: Luisa TID: [id number]
--- NOTE | 2021-07-15 14:52 | PDOC ---
CASEY PALMA NETWORK OPERATIONS PROJECT MANAGER 07/15/21 1452: CARDIO Progress Notes Date and Time Date of Service 07/15/2021 Time of Evaluation 1400 Subjective Subjective: No Chest Pain, No shortness of breath, No Palpitations Vitals Vitals Vital Signs Date Time Temp Pulse Resp B/P (MAP) Pulse Ox O2 Delivery O2 Flow Rate FiO2 07/15/21 11:00 98.2 105 18 93/36 (55) 93 Nasal Cannula 2.0 98.2 Weight Weight [ ] Input and Output Intake and Output Intake and Output 07/15/21 07:00 Intake Total 530 ml Output Total 650 ml Balance -120 ml Intake Oral 530 ml Drainage Total 650 ml # Voids 2 # Bowel Movements 1 Laboratory Labs Laboratory Tests Test 07/14/21 14:56 07/14/21 19:26 07/15/21 08:27 07/15/21 11:00 Glucose (Fingerstick) 199 mg/dL (70-99) 191 mg/dL (70-99) 180 mg/dL (70-99) Sodium Level 146 mmol/L (136-145) Potassium Level 4.2 mmol/L (3.5-5.1) Chloride Level 105 mmol/L (98-107) Carbon Dioxide Level 32 mmol/L (21-32) Anion Gap 9 (6-14) Blood Urea Nitrogen 21 mg/dL (7-20) Creatinine 1.8 mg/dL (0.6-1.0) Estimated GFR (Cockcroft-Gault) 26.7 Glucose Level 182 mg/dL (70-99) Calcium Level 8.8 mg/dL (8.5-10.1) Test 07/15/21 11:36 Glucose (Fingerstick) 196 mg/dL (70-99) Microbiology Micro Microbiology 07/14/21 Gram Stain - Final, Resulted 07/14/21 Aerobic and Anaerobic Culture - Preliminary, Resulted 07/13/21 Gram Stain Evaluation - Final, Resulted 07/13/21 Respiratory Culture, Resulted Pending Physical Exam HEENT: Neck Supple W Full Motion Chest: Symmetric LUNGS: Other (diminished) Heart: irregularly irregular (AFIB) Abdomen: Soft N/T Extremities: No Edema Neurology: alert, follow commands, confused Assessment Assessment 1. Acute respiratory failure with CHF and probable aspiration PNA. CT chest with moderate bilateral pleural effusions. 2. Acute on chronic diastolic CHF; better after right sided thoracentesis 3. PAFIB with intermittent RVR. [facility] Presently in RVR 4. Hypertension; low end. 5. Hyperlipidmia; statin 6. Diabetes, II 7. HANNA on CKD 8. Dementia 9. H/o DVT on Eliquis therapy Recommendations Likely would not be able to tolerate cardizem CD in regards to BP. Will transition to BB tomorrow low dose. IV digoxin x1 today Discontinue losartan for now Lasix PRN Ongoing antibiotic therapy as per ID. Justicifation of Admission Dx: Justifications for Admission: Justification of Admission Dx: Yes KALEB GEE MD 07/16/21 0624: CARDIO Progress Notes Assessment Assessment Patient seen and examined 07/15/21. Agree with SOFTWARE ENGINEERING SUPERVISOR's assessment and plan. AF with episodes of RVR noted on tele - agree with digoxin s/p thoracentesis feeling better Ac on chr diast HF better compensated Continue antibiotics per ID team CASEY PALMA APRN Jul 15, 2021 14:52 KALEB GEE MD Jul 16, 2021 06:24
[2021-07-15 15:00] VITALS: BP 104/50
[2021-07-15] MEDS ORDERED: DIGOXIN IV 500 MCG/2 ML AMPUL. IV ONE (15:00)
[2021-07-15 19:00] VITALS: BP 97/48
--- NOTE | 2021-07-15 19:40 | NUR ---
Patient assisted up to bsc, had lg bm, voided, bladder scanned 21ml
[2021-07-15] MEDS: MONTELUKAST SODIUM 10 MG TABLET. PO SCH (22:42)
[2021-07-15] MEDS: ATORVASTATIN CALCIUM 10 MG TABLET. PO SCH (22:43)
[2021-07-15 23:00] VITALS: BP 97/46
[2021-07-16 03:47] VITALS: BP 107/45
[2021-07-16 07:00] VITALS: BP 99/46
[2021-07-16] MEDS: IPRATRPIUM/ALBUTEROL 0.5/2.5MG 3 ML NEBU. NEB SCH ×4 (07:57→19:45)
[2021-07-16] MEDS: INSULIN LISPRO 300 UNITS/3 ML VIAL. SQ SCH ×3 (08:00→17:00)
--- NOTE | 2021-07-16 08:34 | PDOC ---
PULMONARY PROGRESS NOTES DATE: 07/16/21 TIME: 08:33 Subjective No signs of respiratory distress patient Appears to be less cough Vitals Vital Signs Date Time Temp Pulse Resp B/P (MAP) Pulse Ox O2 Delivery O2 Flow Rate FiO2 07/16/21 07:58 97 Nasal Cannula 2.0 07/16/21 03:47 98.1 86 20 107/45 (65) 98.1 Lungs: Clear, Other (Diminished breath sounds in the base) Cardiovascular: S1, S2 Abdomen: Soft Neuro Exam: Alert Extremities: No Edema Skin: Warm Labs Laboratory Tests Test 07/14/21 09:20 07/14/21 10:52 07/14/21 13:30 07/14/21 14:56 White Blood Count 8.3 x10^3/uL (4.0-11.0) Red Blood Count 3.39 x10^6/uL (3.50-5.40) Hemoglobin 9.3 g/dL (12.0-15.5) Hematocrit 29.4 % (36.0-47.0) Mean Corpuscular Volume 87 fL (79-100) Mean Corpuscular Hemoglobin 28 pg (25-35) Mean Corpuscular Hemoglobin Concent 32 g/dL (31-37) Red Cell Distribution Width 18.5 % (11.5-14.5) Platelet Count 300 x10^3/uL (140-400) Neutrophils (%) (Auto) 66 % (31-73) Lymphocytes (%) (Auto) 16 % (24-48) Monocytes (%) (Auto) 14 % (0-9) Eosinophils (%) (Auto) 4 % (0-3) Basophils (%) (Auto) 1 % (0-3) Neutrophils # (Auto) 5.5 x10^3/uL (1.8-7.7) Lymphocytes # (Auto) 1.3 x10^3/uL (1.0-4.8) Monocytes # (Auto) 1.1 x10^3/uL (0.0-1.1) Eosinophils # (Auto) 0.3 x10^3/uL (0.0-0.7) Basophils # (Auto) 0.0 x10^3/uL (0.0-0.2) Prothrombin Time 17.9 SEC (11.7-14.0) Prothromb Time International Ratio 1.5 (0.8-1.1) Sodium Level 144 mmol/L (136-145) Potassium Level 4.3 mmol/L (3.5-5.1) Chloride Level 104 mmol/L (98-107) Carbon Dioxide Level 34 mmol/L (21-32) Anion Gap 6 (6-14) Blood Urea Nitrogen 22 mg/dL (7-20) Creatinine 1.6 mg/dL (0.6-1.0) Estimated GFR (Cockcroft-Gault) 30.6 Glucose Level 191 mg/dL (70-99) Calcium Level 8.8 mg/dL (8.5-10.1) Glucose (Fingerstick) 164 mg/dL (70-99) 199 mg/dL (70-99) Body Fluid Source Pleural Body Fluid Color Yellow Body Fluid Clarity Clear Body Fluid pH 7.67 Body Fluid Nucleated Cells 578 /cmm (Not Established) Body Fluid Mononuclear WBCs (%) 76 % Body Fluid Polymorphonuclear Cells 23 % Body Fluid Total RBCs Counted 1011 /cmm (Not Established) Body Fluid Other Cells (%) 1 % Test 07/14/21 19:26 07/15/21 08:27 07/15/21 11:00 07/15/21 11:36 Glucose (Fingerstick) 191 mg/dL (70-99) 180 mg/dL (70-99) 196 mg/dL (70-99) Sodium Level 146 mmol/L (136-145) Potassium Level 4.2 mmol/L (3.5-5.1) Chloride Level 105 mmol/L (98-107) Carbon Dioxide Level 32 mmol/L (21-32) Anion Gap 9 (6-14) Blood Urea Nitrogen 21 mg/dL (7-20) Creatinine 1.8 mg/dL (0.6-1.0) Estimated GFR (Cockcroft-Gault) 26.7 Glucose Level 182 mg/dL (70-99) Calcium Level 8.8 mg/dL (8.5-10.1) Test 07/15/21 17:06 07/15/21 20:22 07/16/21 07:44 Glucose (Fingerstick) 252 mg/dL (70-99) 228 mg/dL (70-99) 220 mg/dL (70-99) Laboratory Tests Test 07/15/21 11:00 07/15/21 11:36 07/15/21 17:06 07/15/21 20:22 Sodium Level 146 mmol/L (136-145) Potassium Level 4.2 mmol/L (3.5-5.1) Chloride Level 105 mmol/L (98-107) Carbon Dioxide Level 32 mmol/L (21-32) Anion Gap 9 (6-14) Blood Urea Nitrogen 21 mg/dL (7-20) Creatinine 1.8 mg/dL (0.6-1.0) Estimated GFR (Cockcroft-Gault) 26.7 Glucose Level 182 mg/dL (70-99) Calcium Level 8.8 mg/dL (8.5-10.1) Glucose (Fingerstick) 196 mg/dL (70-99) 252 mg/dL (70-99) 228 mg/dL (70-99) Test 07/16/21 07:44 Glucose (Fingerstick) 220 mg/dL (70-99) Medications Active Scripts Medications Dose Route/Sig Max Daily Dose Days Date Category Ativan (Lorazepam) 1 Mg Tablet 1 Mg PO PRN BID PRN 7 06/16/21 Rx Hydrocodone-Apap 5-325 (Hydrocodone Bit/Acetaminophen) 1 Tab Tablet 1 Tab PO PRN Q6-8HRS PRN 7 06/16/21 Rx Diltiazem 24Hr ER (LA) (Diltiazem HCl) 180 Mg Tab.er.24h 1 Tab PO DAILY 30 06/13/21 Reported Xalatan (Latanoprost) 2.5 Ml Drops 1 Drop OU BID 06/11/21 Reported Triamterene-Hctz 37.5-25 Mg Cp (Triamterene/Hydrochlorothiazid) 1 Each Capsule 1 Cap PO DAILY 06/11/21 Reported Ventolin Hfa Inhaler (Albuterol Sulfate) 18 Gm Hfa.aer.ad 2 Puff INH PRN Q4HRS PRN 06/11/21 Reported Singulair Tablet (Montelukast Sodium) 10 Mg Tablet 10 Mg PO HS 06/11/21 Reported Duoneb 0.5-3(2.5) Mg/3 Ml (Albuterol/Ipratropium) 3 Ml Ampul.neb 3 Ml NEB QID 06/11/21 Reported Lantus Solostar (Insulin Glargine,Hum.rec.anlog) 100 Unit/1 Ml Insuln.pen 30 Unit SQ QHS 06/11/21 Reported Eliquis (Apixaban) 5 Mg Tablet 5 Mg PO BID 06/11/21 Reported Cozaar (Losartan Potassium) 25 Mg Tablet 25 Mg PO DAILY 06/11/21 Reported Cosopt Eye Drops (Dorzolamide Hcl/Timolol Maleat) 10 Ml Drops 1 Drop EACHEYE BID 06/11/21 Reported Atorvastatin Calcium 10 Mg Tablet 10 Mg PO HS 06/11/21 Reported Admelog (Insulin Lispro) 100 Unit/1 Ml Vial 8 Unit SQ TIDAC 06/11/21 Reported Admelog (Insulin Lispro) 100 Unit/1 Ml Vial 0-12 Unit SQ TIDWMEALS 06/11/21 Reported Acetaminophen 325 Mg Tablet 2 Tab PO PRN Q6HRS PRN 30 06/11/21 Reported Impression . IMPRESSION: 1. Acute hypoxemic respiratory failure, multifactorial. 2. Possible bacterial pneumonia. 3. Bilateral pulmonary infiltrates on chest x-ray, compatible with possible pulmonary edema, left-sided effusion. 4. Multifactorial encephalopathy. 5. Recent open reduction and internal fixation for hip fracture. 6. SARS-CoV-2 was negative. 7. Other comorbidities including type 2 diabetes, neuropathy, dementia, major depressive disorder, allergic rhinitis, and atrial fibrillation. 8. Status post thoracentesis on the right removing [address] chest reviewed Impression: 1. Moderate bilateral pleural effusions with adjacent atelectasis or consolidations. 2. Mild right upper lobe groundglass opacities, may represent infectious or inflammatory process. 3. Mildly prominent mediastinal lymph nodes, likely reactive. 4. Increased bilateral adrenal gland nodular thickening. Recommend follow-up adrenal protocol CT or MRI. Plan . Updated 07/15 Patient in no respiratory distress Follow-up on analysis of pleural fluid Suspect transudate of effusion Discussed with at the bedside Okay to plan discharge for 07/16 updated 07/14 Discussed with interventional radiologist Proceed with thoracentesis Updated 07/13 Schedule thoracentesis in the a.m. with interventional radiologist, need to discuss with family Continue current support Empiric antibiotics HEATHER Tapia MD Jul 16, 2021 08:34
--- NOTE | 2021-07-16 09:39 | PDOC ---
Infectious Disease Note Subjective Subjective Patient alert pleasantly confused which appears to be baseline On O2 by nasal cannula ROS ROS No nausea vomiting diarrhea or fever Vital Sign Vital Signs Vital Signs Date Time Temp Pulse Resp B/P (MAP) Pulse Ox O2 Delivery O2 Flow Rate FiO2 07/16/21 07:58 97 Nasal Cannula 2.0 07/16/21 07:00 97.0 93 16 99/46 (63) 97.0 Physical Exam PHYSICAL EXAM GENERAL: Patient alert awake confused appears comfortable, nontoxic-appearing HEENT: Normocephalic, atraumatic. Anicteric. No thrush. Oral mucosa moist. NECK: Supple. LUNGS: Decreased breath sounds at the bases. No accessory muscle use. No wheezing. HEART: S1, S2. Irregular no murmurs. ABDOMEN: Soft, nontender, nondistended. EXTREMITIES: No edema, no cyanosis. DERMATOLOGIC: Warm, dry, no generalized rash. NEUROLOGIC: Lethargic, sleepy, arousable. PSYCHIATRIC: Unable to assess. Labs Lab Laboratory Tests Test 07/15/21 11:00 07/15/21 11:36 07/15/21 17:06 07/15/21 20:22 Sodium Level 146 mmol/L (136-145) Potassium Level 4.2 mmol/L (3.5-5.1) Chloride Level 105 mmol/L (98-107) Carbon Dioxide Level 32 mmol/L (21-32) Anion Gap 9 (6-14) Blood Urea Nitrogen 21 mg/dL (7-20) Creatinine 1.8 mg/dL (0.6-1.0) Estimated GFR (Cockcroft-Gault) 26.7 Glucose Level 182 mg/dL (70-99) Calcium Level 8.8 mg/dL (8.5-10.1) Glucose (Fingerstick) 196 mg/dL (70-99) 252 mg/dL (70-99) 228 mg/dL (70-99) Test 07/16/21 07:44 Glucose (Fingerstick) 220 mg/dL (70-99) Micro Fluid culture is negative Objective Assessment 1. Acute hypoxic respiratory failure, likely aspiration pneumonia. CT chest noted 2. Underlying chronic obstructive pulmonary disease and mild intermittent asthma. 3. Encephalopathy with underlying dementia. 4. Chronic kidney disease. 5. Diabetes mellitus with neuropathy. 6. Right ankle ulcer. 7. CHF, atrial fibrillation 8 History of ALLERGIES TO PENICILLIN intermediate, has tolerated Keflex per pharmacy. Plan Plan of Care cefepime and linezolid,, changed to p.o. for discharge Monitor labs and cultures Maintain aspiration precaution Continue supportive care BRADLEY MCDONALD MD Jul 16, 2021 09:39
[2021-07-16] MEDS: TIMOLOL 0.5% OPHTH SOLUTION 5ML BOTTLE. OU SCH ×2 (09:51→22:20)
[2021-07-16] MEDS: LACTOBACILLUS RHAMNOSUS GG 1 CAPSULE. PO SCH ×2 (09:51→21:51)
[2021-07-16] MEDS: DORZOLAMIDE 2% OPHTH SOLUTION 10ML BOTTLE. OU SCH ×2 (09:52→22:17)
[2021-07-16] MEDS: LATANOPROST 0.005% OPHTH SOLUTION 2.5ML BOTTLE. OU SCH ×2 (09:52→22:17)
--- NOTE | 2021-07-16 09:55 | NUR ---
Non administered patients 0800 dose of insulin due to patient asleep and not wanting to wake up to eat.
[2021-07-16 11:00] VITALS: BP 118/52
[2021-07-16 11:17] LABS: CALCIUM 8.8 mg/dL (8.5-10.1); CREATININE 1.6 mg/dL (0.6-1.0); GFR 30.6; POTASSIUM 4.3 mmol/L (3.5-5.1)
[2021-07-16] MEDS: IV NORMAL SALINE 1000ML BAG 1,000 ML IV SCH (11:28)
--- NOTE | 2021-07-16 11:53 | PDOC ---
CASEY PALMA HEBREW TEACHER 07/16/21 1153: CARDIO Progress Notes Date and Time Date of Service 07/16/2021 Time of Evaluation 1010 Subjective Subjective: No Chest Pain, No shortness of breath, No Palpitations Vitals Vitals Vital Signs Date Time Temp Pulse Resp B/P (MAP) Pulse Ox O2 Delivery O2 Flow Rate FiO2 07/16/21 07:58 97 Nasal Cannula 2.0 07/16/21 07:00 97.0 93 16 99/46 (63) 97.0 Weight Weight [ ] Input and Output Intake and Output Intake and Output 07/16/21 07:00 Intake Total 600 ml Balance 600 ml Intake Oral 600 ml # Voids 2 # Bowel Movements 1 Laboratory Labs Laboratory Tests Test 07/15/21 17:06 07/15/21 20:22 07/16/21 07:44 07/16/21 10:50 Glucose (Fingerstick) 252 mg/dL (70-99) 228 mg/dL (70-99) 220 mg/dL (70-99) Sodium Level 146 mmol/L (136-145) Potassium Level 4.3 mmol/L (3.5-5.1) Chloride Level 110 mmol/L (98-107) Carbon Dioxide Level 32 mmol/L (21-32) Anion Gap 4 (6-14) Blood Urea Nitrogen 24 mg/dL (7-20) Creatinine 1.6 mg/dL (0.6-1.0) Estimated GFR (Cockcroft-Gault) 30.6 Glucose Level 208 mg/dL (70-99) Calcium Level 8.8 mg/dL (8.5-10.1) Microbiology Micro Microbiology 07/14/21 Gram Stain - Final, Resulted 07/14/21 Aerobic and Anaerobic Culture - Preliminary, Resulted 07/13/21 Gram Stain Evaluation - Final, Complete 07/13/21 Respiratory Culture - Final, Complete Physical Exam HEENT: Neck Supple W Full Motion Chest: Symmetric LUNGS: Other (diminished bases) Heart: irregularly irregular (AFIB) Abdomen: Soft N/T Extremities: No Edema Neurology: confused, other (lethargic) Assessment Assessment 1. Acute respiratory failure with CHF and probable aspiration PNA. CT chest with moderate bilateral pleural effusions. 2. Acute on chronic diastolic CHF; better after right sided thoracentesis, better 3. PAFIB with intermittent RVR[facility] better 4. Hypertension; low end. 5. Hyperlipidmia; statin 6. Diabetes, II 7. HANNA on CKD 8. Dementia 9. H/o DVT on Eliquis therapy Recommendations Low dose toprol. Dig PRN Discontinue losartan for now Lasix PRN Ongoing antibiotic therapy as per ID. Restart low dose eliquis for AFIB and prior hx of DVT Justicifation of Admission Dx: Justifications for Admission: Justification of Admission Dx: Yes KALEB GEE MD 07/16/212036: CARDIO Progress Notes Assessment Assessment Patient seen and examined. Agree with BILLET EXAMINER's assessment and plan. AF with episodes of RVR - better controlled. Continue BB and eliquis s/p thoracentesis feeling better Ac on chr diast HF better compensated Continue antibiotics per ID team CASEY PALMA APRN Jul 16, 2021 11:53 KALEB GEE MD Jul 16, 2021 20:37
--- NOTE | 2021-07-16 12:09 | PN ---
DATE: 07/16/2021 SUBJECTIVE: The patient is resting, slightly propped up in bed, in no apparent distress. She continued to be somewhat confused, but otherwise seems to be in no respiratory distress. Nursing staff did not voice any concern. Her creatinine has risen yesterday to 1.8. We did actually scan her bladder showed no evidence of postvoid residual. We did consult the bottling room worker and he recommended starting her on IV fluid and I did start her on normal saline at 75 mL per hour. On questioning her, she looked pale, not jaundiced, cyanosed. No lymphadenopathy, no thyromegaly, no jugular venous distention. No limb edema. OBJECTIVE: VITAL SIGNS: Her heart rate was 93, blood pressure was 99/46, temperature 97, respiratory rate was 16 and oxygen saturation was 97% on 2 liters of oxygen. The rest of clinical exam is stable. LABORATORY DATA: Her lab work this morning showed a serum sodium 146, potassium 4.3, chloride 110, bicarbonate 32, anion gap of 4, BUN 24, creatinine 1.6. Estimated GFR was 30 mL per minute. Her glucose was 208, calcium was 8.8. ASSESSMENT: 1. Acute hypoxic respiratory failure, multifactorial. 2. Acute on chronic diastolic congestive heart failure. 3. Dysphagia. 4. Probable aspiration pneumonia. 5. Paroxysmal atrial fibrillation. 6. Hypertension. 7. Hyperlipidemia. 8. Diabetes mellitus. 9. Dementia with . 10. Acute on chronic kidney injury, slight improvement in creatinine from 1.8 to 1.6. PLAN: To start IV fluid in the form of normal saline at 75 mL per hour. Her antibiotics were switched to oral cefdinir. Meanwhile, continue PT, OT. We will check her coronavirus by PCR and hopefully discharge her back to [facility] tomorrow. [facility] [place]: Luisa TID: [id number]
--- NOTE | 2021-07-16 12:15 | PATHOLOGY ---
Note [facility] Accession Number: [id number] TESTS RESULT FLAG UNITS REF RANGE LAB Clinician Provided Cytology Information No. of containers..01 Other (Miscellaneous) Source: RIGHT PLEURAL DIAGNOSIS: RIGHT PLEURAL NEGATIVE FOR MALIGNANT CELLS. REACTIVE MESOTHELIAL CELLS AND CHRONIC INFLAMMATORY CELLS PRESENT. THIS INTERPRETATION INCLUDES EVALUATION OF A CELL BLOCK. Signed out by: 02 Nathan Thomas MD, Pathologist NPI- [id number] Performed by: Frances Lopez, [employer] Designer ([facility]) Gross description: 01 50ML, CLOUDY, YELLOW /LCS 07/15/2021 1450 Local FLAG LEGEND: L-Low Normal,H-High Normal,LL-Alert Low,HH-Alert High <-Panic Low,>-Panic High,A-Abnormal,AA-Critical Abnormal Performed at: [facility] [address] [place] [address] Naren Carty MD, 02 [facility] [address] [place] [address] Nathan Thomas MD, Specimen Comment: A courtesy copy of this report has been sent to [phone], [phone] Specimen Comment: [phone], Specimen Comment: Report sent to , DR GIVENS / DR SALAZAR Specimen Comment: A duplicate report has been generated due to demographic updates. Performed at: 01 [facility] [address], [place], [place] [id number] MD Naren Carty MD Phone: [phone]
[2021-07-16] MEDS: APIXABAN 2.5 MG TABLET. PO SCH ×2 (12:36→21:51)
[2021-07-16] MEDS: METOPROLOL SUCC 24HR ER 25 MG TAB.ER.24H. PO SCH (12:37)
--- NOTE | 2021-07-16 13:04 | NUR ---
SS following for discharge planning. SS reviewed pt chart and discussed with pt RN. Pt is skilled rehabilitation resident from [place], ; fax [phone]. Pt is currently requiring oxygen at two liters nasal canula. PO diet. Nephrology consulted. Pt alert to self. SS phoned phoned and faxed referral to [facility]. COVID19 test pending for placement. SS will continue to follow for discharge planning.
--- NOTE | 2021-07-16 14:57 | PDOC2 ---
CONSULT Date of Consult Date of Consult DATE: 07/16/21 TIME: 14:47 Reason for Consult Reason for Consult: HANNA Referring Physician Referring Physician: MARIE Identification/Chief Complaint Chief Complaint SOB AND WEAKNESS Source Source: Chart review History of Present Illness Reason for Visit: THIS IS AN 86 YR WITH DEMENTIA. ADMITTED WITH WORSENING CONFUSION. IMAGING NOTABLE FOR CHF AND LEFT SIDED PLEURAL EFFUSION. UNDERWENT DIURESIS AND THORACENTESIS. CR OF 1.9. HAS CKD STAGE 3B WITH CR OF ABOUT 1.2-1.6 AT BASELINE. HAS NOT BEEN EATING PER ESTRELLA. CKD DUE TO NEPHROSCLEROSIS AND HTN. NO UA TO REVIEW. HEMODYNAMICALLY STABLE AND NO NEPHROTOXIN EXPOSURE NOTED. CURRENTLY THERE IS CONCERN OF ASP PNA AND HE IS ON ANTIBIOTICS FOR THIS. HAS BEEN ON MAXZIDE AND COZAAR OUTSIDE OF THE HOSPITAL. Past Medical History Cardiovascular: HTN CENTRAL NERVOUS SYSTEM: Dementia GI: Constipation Musculoskeletal: Osteoarthritis Renal/: No pertinent hx, Urinary Incontinence Endocrine: No pertinent hx Past Surgical History Past Surgical History UNKNOWN Family History Family History: No Significant Social History No ALCOHOL: none Lives: with Family Current Medications Current Medications Current Medications Acetaminophen (Tylenol) 650 mg PRN Q6HRS PRN PO MILD PAIN / TEMP > 100.3'F; Start 07/11/21 at 15:30 Apixaban (Eliquis) 5 mg BID PO Last administered on 07/12/21at 21:00; Start 07/11/21 at 21:00; Stop 07/13/21 at 08:36; Status DC Atorvastatin Calcium (Lipitor) 10 mg HS PO Last administered on 07/15/21at 22:43; Start 07/11/21 at 21:00 Albuterol/ Ipratropium (Duoneb) 3 ml RTQID NEB Last administered on 07/16/21at 12:22; Start 07/11/21 at 16:00 Latanoprost (Xalatan) 1 drop BID OU Last administered on 07/16/21at 09:52; Start 07/11/21 at 21:00 Losartan Potassium (Cozaar) 25 mg DAILY PO Last administered on 07/13/21at 13:09; Start 07/12/21 at 09:00; Stop 07/14/21 at 15:37; Status DC Montelukast Sodium (Singulair) 10 mg HS PO Last administered on 07/15/21at 22:42; Start 07/11/21 at 21:00 Non-Formulary Medication (Albuterol Sulfate (Ventolin Hfa Inhaler)) 2 puff PRN Q4HRS PRN INH WHEEZING; Start 07/11/21 at 15:30; Status UNV Diltiazem HCl (Cardizem 24hr Cd) 180 mg DAILY PO Last administered on 07/15/21 09:47; Start 07/12/21 at 09:00; Stop 07/15/21 at 14:51; Status DC Dorzolamide HCl (Trusopt) 1 drop BID OU Last administered on 07/16/21 09:52; Start 07/11/21 at 21:00 Furosemide (Lasix) 40 mg DAILY IVP Last administered on 07/14/21at 11:16; Start 07/12/21 at 09:00; Stop 07/14/21 at 15:37; Status DC Insulin Human Lispro (HumaLOG) 0-5 UNITS TIDWMEALS SQ Last administered on 07/16/21at 12:39; Start 07/11/21 at 17:00 Dextrose (Dextrose 50%-Water Syringe) 12.5 gm PRN Q15MIN PRN IV SEE COMMENTS; Start 07/11/21 at 15:30 Linezolid (Zyvox) 600 mg BID PO Last administered on 07/15/21at 22:42; Start 07/11/21 at 21:00; Stop 07/16/21 at 09:40; Status DC Levofloxacin/ Dextrose 150 ml @ 100 mls/hr Q48H IV Last administered on 07/11/21at 16:45; Start 07/11/21 at 16:00; Stop 07/12/21 at 15:59; Status DC Timolol Maleate (Timoptic 0.5% Oph) 1 drop BID OU Last administered on 07/16/21at 09:51; Start 07/11/21 at 21:00 Albuterol Sulfate (Ventolin Neb Soln) 2.5 mg PRN Q4HRS PRN NEB SHORTNESS OF BREATH Last administered on 07/12/21at 03:47; Start 07/11/21 at 16:00; Stop 07/15/21 at 13:28; Status DC Info (Anti-Coagulation Monitoring By Pharmacy) 1 each PRN DAILY PRN MC PER PROTOCOL Last administered on 07/12/21at 13:54; Start 07/11/21 at 16:00; Stop 07/15/21 at 11:45; Status DC Albuterol Sulfate (Ventolin Hfa) 1 puff PRN Q4HRS PRN INH WHEEZING; Start 07/11/21 at 16:15 Albuterol/ Ipratropium (Combivent Respimat 20-100 Mcg) 1 puff RTQID INH Last administered on 07/12/21at 08:55; Start 07/11/21 at 16:00; Stop 07/12/21 at 16:02; Status DC Cefepime HCl (Maxipime) 1 gm Q12HR IVP Last administered on 07/14/21at 11:13; Start 07/12/21 at 09:00; Stop 07/14/21 at 12:27; Status DC Lactobacillus Rhamnosus (Culturelle) 1 cap BID PO Last administered on 07/16/21at 09:51; Start 07/12/21 at 21:00 Olanzapine (ZyPREXA) 2.5 mg PRN Q4HRS PRN PO AGITATION Last administered on 07/15/21at 22:54; Start 07/12/21 at 23:00 Cefepime HCl (Maxipime) 1 gm Q24H IVP Last administered on 07/15/21at 09:46; Start 07/15/21 at 09:00; Stop 07/16/21 at 09:40; Status DC Digoxin (Lanoxin) 250 mcg 1X ONCE IV Last administered on 07/14/21at 16:49; Start 07/14/21 at 15:45; Stop 07/14/21 at 15:46; Status DC Digoxin (Lanoxin) 250 mcg 1X ONCE IV Last administered on 07/15/21at 15:32; Start 07/15/21 at 15:00; Stop 07/15/21 at 15:01; Status DC Cefdinir (Omnicef) 300 mg BID PO ; Start 07/16/21 at 21:00 Sodium Chloride 1,000 ml @ 75 mls/hr [id number] IV Last administered on 07/16/21at 11:28; Start 07/16/21 at 11:30 Metoprolol Succinate (Toprol Xl) 12.5 mg DAILY PO Last administered on 07/16/21at 12:37; Start 07/16/21 at 13:00 Apixaban (Eliquis) 2.5 mg BID PO Last administered on 07/16/21at 12:36; Start 07/16/21 at 13:00 Active Scripts Active Ativan (Lorazepam) 1 Mg Tablet 1 Mg PO PRN BID PRN 7 Days Hydrocodone-Apap 5-325 (Hydrocodone Bit/Acetaminophen) 1 Tab Tablet 1 Tab PO PRN Q6-8HRS PRN 7 Days Reported Diltiazem 24Hr ER (LA) (Diltiazem HCl) 180 Mg Tab.er.24h 1 Tab PO DAILY 30 Days Xalatan (Latanoprost) 2.5 Ml Drops 1 Drop OU BID Triamterene-Hctz 37.5-25 Mg Cp (Triamterene/Hydrochlorothiazid) 1 Each Capsule 1 Cap PO DAILY Ventolin Hfa Inhaler (Albuterol Sulfate) 18 Gm Hfa.aer.ad 2 Puff INH PRN Q4HRS PRN Singulair Tablet (Montelukast Sodium) 10 Mg Tablet 10 Mg PO HS Duoneb 0.5-3(2.5) Mg/3 Ml (Albuterol/Ipratropium) 3 Ml Ampul.neb 3 Ml NEB QID Lantus Solostar (Insulin Glargine,Hum.rec.anlog) 100 Unit/1 Ml Insuln.pen 30 Unit SQ QHS Eliquis (Apixaban) 5 Mg Tablet 5 Mg PO BID Cozaar (Losartan Potassium) 25 Mg Tablet 25 Mg PO DAILY Cosopt Eye Drops (Dorzolamide Hcl/Timolol Maleat) 10 Ml Drops 1 Drop EACHEYE BID Atorvastatin Calcium 10 Mg Tablet 10 Mg PO HS Admelog (Insulin Lispro) 100 Unit/1 Ml Vial 8 Unit SQ TIDAC Admelog (Insulin Lispro) 100 Unit/1 Ml Vial 0-12 Unit SQ TIDWMEALS Acetaminophen 325 Mg Tablet 2 Tab PO PRN Q6HRS PRN 30 Days Allergies Allergies: Coded Allergies: Penicillins (Verified Allergy, Intermediate, 07/12/21) Has tolerated keflex ibuprofen (Verified Allergy, Intermediate, 06/12/21) ROS Review of System UNABLE TO OBTAIN Physical Exam General: Cooperative, No acute distress HEENT: Atraumatic, PERRLA, Other (DRY MUCOSA) Heart: Regular rate Abdomen: Normal bowel sounds Extremities: No clubbing Skin: No breakdown Neuro: Other (CONFUSED. UNABLE TO COOPERATE) Psych/Mental Status: Other (FLAT AND CONFUSED AFFECT) MUSCULOSKELETAL: No joint tenderness, No deformity, No swelling Vitals VITALS Vital Signs Date Time Temp Pulse Resp B/P (MAP) Pulse Ox O2 Delivery O2 Flow Rate FiO2 07/16/21 12:37 111 118/52 07/16/21 12:22 98 Nasal Cannula 2.0 07/16/21 11:00 97.5 18 97.5 Labs Labs Laboratory Tests Test 07/14/21 14:56 07/14/21 19:26 07/15/21 08:27 07/15/21 11:00 Glucose (Fingerstick) 199 mg/dL (70-99) 191 mg/dL (70-99) 180 mg/dL (70-99) Sodium Level 146 mmol/L (136-145) Potassium Level 4.2 mmol/L (3.5-5.1) Chloride Level 105 mmol/L (98-107) Carbon Dioxide Level 32 mmol/L (21-32) Anion Gap 9 (6-14) Blood Urea Nitrogen 21 mg/dL (7-20) Creatinine 1.8 mg/dL (0.6-1.0) Estimated GFR (Cockcroft-Gault) 26.7 Glucose Level 182 mg/dL (70-99) Calcium Level 8.8 mg/dL (8.5-10.1) Test 07/15/21 11:36 07/15/21 17:06 07/15/21 20:22 07/16/21 07:44 Glucose (Fingerstick) 196 mg/dL (70-99) 252 mg/dL (70-99) 228 mg/dL (70-99) 220 mg/dL (70-99) Test 07/16/21 10:50 07/16/21 11:57 Sodium Level 146 mmol/L (136-145) Potassium Level 4.3 mmol/L (3.5-5.1) Chloride Level 110 mmol/L (98-107) Carbon Dioxide Level 32 mmol/L (21-32) Anion Gap 4 (6-14) Blood Urea Nitrogen 24 mg/dL (7-20) Creatinine 1.6 mg/dL (0.6-1.0) Estimated GFR (Cockcroft-Gault) 30.6 Glucose Level 208 mg/dL (70-99) Calcium Level 8.8 mg/dL (8.5-10.1) Glucose (Fingerstick) 168 mg/dL (70-99) Laboratory Tests Test 07/15/21 17:06 07/15/21 20:22 07/16/21 07:44 07/16/21 10:50 Glucose (Fingerstick) 252 mg/dL (70-99) 228 mg/dL (70-99) 220 mg/dL (70-99) Sodium Level 146 mmol/L (136-145) Potassium Level 4.3 mmol/L (3.5-5.1) Chloride Level 110 mmol/L (98-107) Carbon Dioxide Level 32 mmol/L (21-32) Anion Gap 4 (6-14) Blood Urea Nitrogen 24 mg/dL (7-20) Creatinine 1.6 mg/dL (0.6-1.0) Estimated GFR (Cockcroft-Gault) 30.6 Glucose Level 208 mg/dL (70-99) Calcium Level 8.8 mg/dL (8.5-10.1) Test 07/16/21 11:57 Glucose (Fingerstick) 168 mg/dL (70-99) Assessment/Plan Assessment/Plan IMP DEHDRATION HYPERNATREMIA HANNA-MILD WITH CR OF 1.9 CKD STAGE 3B - BASELINE CR AVG OF 1.5 DEMENTIA ACUTE MET ENCEPHALOPATHY ASP PNEUMONIA PLEURAL EFFUSION S/P THORACENTESIS DM II HTN HX PLAN HYDRATION HOLD ARB HOLD DIURETICS ENC PO MAY NEED HYPERALIMENTATION D/W ATTENDING LEXII PEDRAZA MD Jul 16, 2021 14:57
[2021-07-16 15:00] VITALS: BP 112/48
--- NOTE | 2021-07-16 18:02 | NUR ---
Non administered patients 1700 dose of insulin due to patient refusing to eat. pt asleep and states she wants to sleep.
[2021-07-16 19:00] VITALS: BP 98/62
[2021-07-16] MEDS: CEFDINIR 300 MG CAPSULE PO SCH (21:51)
[2021-07-16] MEDS: MONTELUKAST SODIUM 10 MG TABLET. PO SCH (21:51)
[2021-07-16] MEDS: OLANZapine 2.5 MG TABLET PO PRN (21:51)
[2021-07-16] MEDS: ATORVASTATIN CALCIUM 10 MG TABLET. PO SCH (21:51)
[2021-07-16 23:56] VITALS: BP 106/56
[2021-07-17] MEDS: IV NORMAL SALINE 1000ML BAG 1,000 ML IV SCH (01:38)
[2021-07-17 03:43] VITALS: BP 125/69
[2021-07-17 07:00] VITALS: BP 113/58
[2021-07-17] MEDS: IPRATRPIUM/ALBUTEROL 0.5/2.5MG 3 ML NEBU. NEB SCH ×2 (07:20→11:26)
[2021-07-17] MEDS: INSULIN LISPRO 300 UNITS/3 ML VIAL. SQ SCH ×2 (08:00→12:56)
--- NOTE | 2021-07-17 08:13 | PDOC ---
Infectious Disease Note Subjective Subjective Patient alert pleasantly confused which appears to be baseline On O2 by nasal cannula ROS ROS No nausea vomiting diarrhea or fever Vital Sign Vital Signs Vital Signs Date Time Temp Pulse Resp B/P (MAP) Pulse Ox O2 Delivery O2 Flow Rate FiO2 07/17/21 07:30 93 Nasal Cannula 2.0 07/17/21 03:43 98.5 110 18 125/69 (87) 98.5 Physical Exam PHYSICAL EXAM GENERAL: Patient alert awake confused appears comfortable, nontoxic-appearing HEENT: Normocephalic, atraumatic. Anicteric. No thrush. Oral mucosa moist. NECK: Supple. LUNGS: Decreased breath sounds at the bases. No accessory muscle use. No wheezing. HEART: S1, S2. Irregular no murmurs. ABDOMEN: Soft, nontender, nondistended. EXTREMITIES: No edema, no cyanosis. DERMATOLOGIC: Warm, dry, no generalized rash. NEUROLOGIC: Lethargic, sleepy, arousable. PSYCHIATRIC: Unable to assess. Labs Lab Laboratory Tests Test 07/16/21 10:50 07/16/21 11:57 07/16/21 17:11 07/16/21 20:04 Sodium Level 146 mmol/L (136-145) Potassium Level 4.3 mmol/L (3.5-5.1) Chloride Level 110 mmol/L (98-107) Carbon Dioxide Level 32 mmol/L (21-32) Anion Gap 4 (6-14) Blood Urea Nitrogen 24 mg/dL (7-20) Creatinine 1.6 mg/dL (0.6-1.0) Estimated GFR (Cockcroft-Gault) 30.6 Glucose Level 208 mg/dL (70-99) Calcium Level 8.8 mg/dL (8.5-10.1) Glucose (Fingerstick) 168 mg/dL (70-99) 193 mg/dL (70-99) 168 mg/dL (70-99) Test 07/17/21 08:05 Glucose (Fingerstick) 197 mg/dL (70-99) Micro Fluid culture is negative Objective Assessment 1. Acute hypoxic respiratory failure, likely aspiration pneumonia. CT chest noted 2. Underlying chronic obstructive pulmonary disease and mild intermittent asthma. 3. Encephalopathy with underlying dementia. 4. Chronic kidney disease. 5. Diabetes mellitus with neuropathy. 6. Right ankle ulcer. 7. CHF, atrial fibrillation 8 History of ALLERGIES TO PENICILLIN intermediate, has tolerated Keflex per pharmacy. Plan Plan of Care Cefdinir p.o. for discharge Monitor labs and cultures Maintain aspiration precaution Continue supportive care BRADLEY MCDONALD MD Jul 17, 2021 08:12
[2021-07-17 08:33] LABS: CALCIUM 8.6 mg/dL (8.5-10.1); CREATININE 1.4 mg/dL (0.6-1.0); GFR 35.7; POTASSIUM 4.3 mmol/L (3.5-5.1)
--- NOTE | 2021-07-17 08:55 | NUR ---
This RN nonadministered dose of insulin this am. Pt sleeping, did not eat breakfast. Will reassess at lunch and dose accordingly.
[2021-07-17] MEDS: APIXABAN 2.5 MG TABLET. PO SCH (08:57)
[2021-07-17] MEDS: DORZOLAMIDE 2% OPHTH SOLUTION 10ML BOTTLE. OU SCH (08:57)
[2021-07-17] MEDS: TIMOLOL 0.5% OPHTH SOLUTION 5ML BOTTLE. OU SCH (08:57)
[2021-07-17] MEDS: LATANOPROST 0.005% OPHTH SOLUTION 2.5ML BOTTLE. OU SCH (08:57)
[2021-07-17] MEDS: LACTOBACILLUS RHAMNOSUS GG 1 CAPSULE. PO SCH (08:57)
[2021-07-17] MEDS: METOPROLOL SUCC 24HR ER 25 MG TAB.ER.24H. PO SCH (08:57)
[2021-07-17] MEDS: CEFDINIR 300 MG CAPSULE PO SCH (08:57)
[2021-07-17] MEDS ORDERED: ASCORBIC ACID 500 MG TABLET PO SCH (09:00)
[2021-07-17] MEDS ORDERED: MULTIVITAMIN with MINERAL TABLET. PO SCH (09:00)
[2021-07-17] MEDS ORDERED: LORA-434 PO (09:09)
[2021-07-17] MEDS ORDERED: HYDR-2761 PO (09:09)
--- NOTE | 2021-07-17 09:11 | PDOC ---
PULMONARY PROGRESS NOTES DATE: 07/17/21 TIME: 09:11 Subjective No signs of respiratory distress patient Appears to be less cough Vitals Vital Signs Date Time Temp Pulse Resp B/P (MAP) Pulse Ox O2 Delivery O2 Flow Rate FiO2 07/17/21 08:57 113 113/58 07/17/21 07:30 93 Nasal Cannula 2.0 07/17/21 07:00 97.1 18 97.1 Lungs: Clear, Other (Diminished breath sounds in the base) Cardiovascular: S1, S2 Abdomen: Soft Neuro Exam: Alert Extremities: No Edema Skin: Warm Labs Laboratory Tests Test 07/15/21 11:00 07/15/21 11:36 07/15/21 17:06 07/15/21 20:22 Sodium Level 146 mmol/L (136-145) Potassium Level 4.2 mmol/L (3.5-5.1) Chloride Level 105 mmol/L (98-107) Carbon Dioxide Level 32 mmol/L (21-32) Anion Gap 9 (6-14) Blood Urea Nitrogen 21 mg/dL (7-20) Creatinine 1.8 mg/dL (0.6-1.0) Estimated GFR (Cockcroft-Gault) 26.7 Glucose Level 182 mg/dL (70-99) Calcium Level 8.8 mg/dL (8.5-10.1) Glucose (Fingerstick) 196 mg/dL (70-99) 252 mg/dL (70-99) 228 mg/dL (70-99) Test 07/16/21 07:44 07/16/21 10:50 07/16/21 11:57 07/16/21 17:11 Glucose (Fingerstick) 220 mg/dL (70-99) 168 mg/dL (70-99) 193 mg/dL (70-99) Sodium Level 146 mmol/L (136-145) Potassium Level 4.3 mmol/L (3.5-5.1) Chloride Level 110 mmol/L (98-107) Carbon Dioxide Level 32 mmol/L (21-32) Anion Gap 4 (6-14) Blood Urea Nitrogen 24 mg/dL (7-20) Creatinine 1.6 mg/dL (0.6-1.0) Estimated GFR (Cockcroft-Gault) 30.6 Glucose Level 208 mg/dL (70-99) Calcium Level 8.8 mg/dL (8.5-10.1) Test 07/16/21 20:04 07/17/21 06:45 07/17/21 08:05 Glucose (Fingerstick) 168 mg/dL (70-99) 197 mg/dL (70-99) Sodium Level 147 mmol/L (136-145) Potassium Level 4.3 mmol/L (3.5-5.1) Chloride Level 110 mmol/L (98-107) Carbon Dioxide Level 28 mmol/L (21-32) Anion Gap 9 (6-14) Blood Urea Nitrogen 18 mg/dL (7-20) Creatinine 1.4 mg/dL (0.6-1.0) Estimated GFR (Cockcroft-Gault) 35.7 Glucose Level 202 mg/dL (70-99) Calcium Level 8.6 mg/dL (8.5-10.1) Laboratory Tests Test 07/16/21 10:50 07/16/21 11:57 07/16/21 17:11 07/16/21 20:04 Sodium Level 146 mmol/L (136-145) Potassium Level 4.3 mmol/L (3.5-5.1) Chloride Level 110 mmol/L (98-107) Carbon Dioxide Level 32 mmol/L (21-32) Anion Gap 4 (6-14) Blood Urea Nitrogen 24 mg/dL (7-20) Creatinine 1.6 mg/dL (0.6-1.0) Estimated GFR (Cockcroft-Gault) 30.6 Glucose Level 208 mg/dL (70-99) Calcium Level 8.8 mg/dL (8.5-10.1) Glucose (Fingerstick) 168 mg/dL (70-99) 193 mg/dL (70-99) 168 mg/dL (70-99) Test 07/17/21 06:45 07/17/21 08:05 Sodium Level 147 mmol/L (136-145) Potassium Level 4.3 mmol/L (3.5-5.1) Chloride Level 110 mmol/L (98-107) Carbon Dioxide Level 28 mmol/L (21-32) Anion Gap 9 (6-14) Blood Urea Nitrogen 18 mg/dL (7-20) Creatinine 1.4 mg/dL (0.6-1.0) Estimated GFR (Cockcroft-Gault) 35.7 Glucose Level 202 mg/dL (70-99) Calcium Level 8.6 mg/dL (8.5-10.1) Glucose (Fingerstick) 197 mg/dL (70-99) Medications Active Scripts Medications Dose Route/Sig Max Daily Dose Days Date Category Ativan (Lorazepam) 1 Mg Tablet 1 Mg PO PRN BID PRN 7 06/16/21 Rx Hydrocodone-Apap 5-325 (Hydrocodone Bit/Acetaminophen) 1 Tab Tablet 1 Tab PO PRN Q6-8HRS PRN 7 06/16/21 Rx Diltiazem 24Hr ER (LA) (Diltiazem HCl) 180 Mg Tab.er.24h 1 Tab PO DAILY 30 06/13/21 Reported Xalatan (Latanoprost) 2.5 Ml Drops 1 Drop OU BID 06/11/21 Reported Triamterene-Hctz 37.5-25 Mg Cp (Triamterene/Hydrochlorothiazid) 1 Each Capsule 1 Cap PO DAILY 06/11/21 Reported Ventolin Hfa Inhaler (Albuterol Sulfate) 18 Gm Hfa.aer.ad 2 Puff INH PRN Q4HRS PRN 06/11/21 Reported Singulair Tablet (Montelukast Sodium) 10 Mg Tablet 10 Mg PO HS 06/11/21 Reported Duoneb 0.5-3(2.5) Mg/3 Ml (Albuterol/Ipratropium) 3 Ml Ampul.neb 3 Ml NEB QID 06/11/21 Reported Lantus Solostar (Insulin Glargine,Hum.rec.anlog) 100 Unit/1 Ml Insuln.pen 30 Unit SQ QHS 06/11/21 Reported Eliquis (Apixaban) 5 Mg Tablet 5 Mg PO BID 06/11/21 Reported Cozaar (Losartan Potassium) 25 Mg Tablet 25 Mg PO DAILY 06/11/21 Reported Cosopt Eye Drops (Dorzolamide Hcl/Timolol Maleat) 10 Ml Drops 1 Drop EACHEYE BID 06/11/21 Reported Atorvastatin Calcium 10 Mg Tablet 10 Mg PO HS 06/11/21 Reported Admelog (Insulin Lispro) 100 Unit/1 Ml Vial 8 Unit SQ TIDAC 06/11/21 Reported Admelog (Insulin Lispro) 100 Unit/1 Ml Vial 0-12 Unit SQ TIDWMEALS 06/11/21 Reported Acetaminophen 325 Mg Tablet 2 Tab PO PRN Q6HRS PRN 30 06/11/21 Reported Impression . IMPRESSION: 1. Acute hypoxemic respiratory failure, multifactorial. 2. Possible bacterial pneumonia. 3. Bilateral pulmonary infiltrates on chest x-ray, compatible with possible pulmonary edema, left-sided effusion. 4. Multifactorial encephalopathy. 5. Recent open reduction and internal fixation for hip fracture. 6. SARS-CoV-2 was negative. 7. Other comorbidities including type 2 diabetes, neuropathy, dementia, major depressive disorder, allergic rhinitis, and atrial fibrillation. 8. Status post thoracentesis on the right removing [address] chest reviewed Impression: 1. Moderate bilateral pleural effusions with adjacent atelectasis or consolidations. 2. Mild right upper lobe groundglass opacities, may represent infectious or inflammatory process. 3. Mildly prominent mediastinal lymph nodes, likely reactive. 4. Increased bilateral adrenal gland nodular thickening. Recommend follow-up adrenal protocol CT or MRI. Plan . Updated 07/15 Patient in no respiratory distress Follow-up on analysis of pleural fluid Suspect transudate of effusion Discussed with at the bedside Okay to plan discharge for 07/16 updated 07/14 Discussed with interventional radiologist Proceed with thoracentesis Updated 07/13 Schedule thoracentesis in the a.m. with interventional radiologist, need to discuss with family Continue current support Empiric antibiotics HEATHER Tapia MD Jul 17, 2021 09:11
[2021-07-17] MEDS ORDERED: CEFD300C PO (09:12)
--- NOTE | 2021-07-17 09:14 | SNU/HH DC ---
DISCHARGE ORDERS DISCHARGE INFORMATION: DISCHARGE DATE: Jul 17, 2021 FINAL DIAGNOSIS acute hypoxic resp. failure aspiration pneumonia A/C diastolic CHF CONDITION ON DISCHARGE: Stable CODE STATUS: Code Status: DNR/DNI SENIOR LIVING: SNF STAY <30 DAYS: Yes POST DISCHARGE ORDERS: ACTIVITY ORDERS: Activity as tolerated WEIGHT BEARING STATUS: Touch down weight bearing BATHING ORDERS: Shower-keep dressing dry, No Tub Bath until see DIET AFTER DISCHARGE: ADA WOUND/INCISION CARE: Keep wound/cast CDI, Change dressing CHECKS AFTER DISCHARGE: CHECKS AFTER DISCHARGE: Check blood sugar, ac/hs TREATMENT/EQUIPMENT ORDERS: ADAPTIVE EQUIPMENT NEEDED: Front wheeled walker Physical Therapy For: Evalulation/Treatment Occupational Therapy For: Evaluation/Treatment DISCHARGE MEDICATIONS: Home Meds Active Scripts Cefdinir (CEFDINIR) 300 Mg Capsule, 1 CAP PO BID for pneumonia for 5 Days, #10 CAP Prov:NISHI SALAZAR MD 07/17/21 Lorazepam (ATIVAN) 1 Mg Tablet, 1 MG PO BID for anxiety for 30 Days, #60 TAB 5 Refills Prov:NISHI SALAZAR MD 07/17/21 Hydrocodone Bit/Acetaminophen (HYDROCODONE-APAP 5-325 ) 1 Tab Tablet, 1 TAB PO PRN Q6HRS PRN for PAIN for 30 Days, #120 TAB 0 Refills Prov:NISHI SALAZAR MD 07/17/21 Reported Medications Diltiazem HCl (Diltiazem 24Hr ER (LA)) 180 Mg Tab.er.24h, 1 TAB PO DAILY for afib for 30 Days, #30 TAB 0 Refills 06/13/21 Latanoprost (XALATAN) 2.5 Ml Drops, 1 DROP OU BID for GLAUCOMA, ML 06/11/21 Triamterene/Hydrochlorothiazid (TRIAMTERENE-HCTZ 37.5-25 MG CP) 1 Each Capsule, 1 CAP PO DAILY for HTN, #30 CAP 5 Refills 06/11/21 Albuterol Sulfate (VENTOLIN HFA INHALER) 18 Gm Hfa.aer.ad, 2 PUFF INH PRN Q4HRS PRN for WHEEZING, EACH 0 Refills 06/11/21 Montelukast Sodium (SINGULAIR TABLET ) 10 Mg Tablet, 10 MG PO HS for FOR ASTHMA, TAB 0 Refills 06/11/21 Ipratropium/Albuterol Sulfate (DUONEB 0.5-3(2.5) MG/3 ML) 3 Ml Ampul.neb, 3 ML NEB QID for ASTHMA, EACH 06/11/21 Insulin Glargine,Hum.rec.anlog (LANTUS SOLOSTAR) 100 Unit/1 Ml Insuln.pen, 30 UNIT SQ QHS for DM, #15 ML 3 Refills 06/11/21 Apixaban (ELIQUIS) 5 Mg Tablet, 5 MG PO BID for AFIB, TAB 06/11/21 Losartan Potassium (COZAAR ) 25 Mg Tablet, 25 MG PO DAILY for HYPERTENSION, TAB 06/11/21 Dorzolamide Hcl/Timolol Maleat (COSOPT EYE DROPS) 10 Ml Drops, 1 DROP EACHEYE BID for GLAUCOMA, #10 ML 0 Refills 06/11/21 Atorvastatin Calcium (ATORVASTATIN CALCIUM) 10 Mg Tablet, 10 MG PO HS for FOR CHOLESTEROL, #30 TAB 0 Refills 06/11/21 Insulin Lispro (Admelog) 100 Unit/1 Ml Vial, 8 UNIT SQ TIDAC for DM, EACH 06/11/21 Insulin Lispro (Admelog) 100 Unit/1 Ml Vial, 0-12 UNIT SQ TIDWMEALS for DM, EACH 06/11/21 Acetaminophen (ACETAMINOPHEN) 325 Mg Tablet, 2 TAB PO PRN Q6HRS PRN for MILD PAIN / TEMP > 100.3'F for 30 Days, #30 TAB 0 Refills 06/11/21 Discontinued Scripts Lorazepam (ATIVAN) 1 Mg Tablet, 1 MG PO PRN BID PRN for ANXIETY / AGITATION for 7 Days, #14 TAB 0 Refills Prov:EMILY CRUZ MD 06/16/21 Hydrocodone Bit/Acetaminophen (HYDROCODONE-APAP 5-325 ) 1 Tab Tablet, 1 TAB PO PRN Q6-8HRS PRN for PAIN for 7 Days, #28 TAB 0 Refills Prov:EMILY CRUZ MD 06/16/21 NISHI SALAZAR MD Jul 17, 2021 09:14
[2021-07-17] MEDS ORDERED: METOPROLOL SUCC 24HR ER 25 MG TAB.ER.24H. PO ONE (09:30)
[2021-07-17] MEDS ORDERED: DIGOXIN IV 500 MCG/2 ML AMPUL. IV ONE (09:30)
--- NOTE | 2021-07-17 10:06 | PDOC ---
DATE OF SERVICE DATE: 07/17/21 TIME: 09:58 SUBJECTIVE ROS Stable, No complaints OBJECTIVE Vital Signs Vital Signs Date Time Temp Pulse Resp B/P (MAP) Pulse Ox O2 Delivery O2 Flow Rate FiO2 07/17/21 08:57 113 113/58 07/17/21 07:30 93 Nasal Cannula 2.0 07/17/21 07:00 97.1 18 97.1 I & 0 Intake and Output 07/17/21 07:00 # Voids 3 # Bowel Movements 2 PHYSICAL EXAM Physical Exam GENERAL NAD HEENT: Normocephalic, atraumatic. Anicteric. No thrush. Oral mucosa moist. NECK: Supple. LUNGS: Decreased breath sounds at bases. No accessory muscle use. HEART: S1, S2. Irregular no murmurs. ABDOMEN: Soft, nontender, nondistended. EXTREMITIES: No edema, DERMATOLOGIC: no generalized rash. NEUROLOGIC: sleepy, arousable. DIAGNOSIS/ASSESSMENT Assessment & Plan HANNA - Improving, Creat from 1.8--> 1.4 , 2/2 dehydration , Non Oliguric. ARB and Diuretics held. Supportive care, maintain hydration, avoid nephrotoxins CKD stage 3 B- baseline Creat ~ 1.5 HyperNatremia- Mild , encourage PO water intake .. switch to hypotonic IVF Acute hypoxic respiratory failure, likely aspiration pneumonia Bilat Pl Effusion S/P Thoracentesis Diabetes mellitus Right ankle ulcer. Hx of CHF, atrial fibrillation Dementia COMMENT/RELEVANT DATA Meds Current Medications Medications (Trade) Dose Ordered Sig/Rasta Start Time Stop Time Status Last Admin Dose Admin Acetaminophen (Tylenol) 650 mg PRN Q6HRS PRN 07/11/21 15:30 Albuterol Sulfate (Ventolin Hfa) 1 puff PRN Q4HRS PRN 07/11/21 16:15 Albuterol Sulfate (Ventolin Neb Soln) 2.5 mg PRN Q4HRS PRN 07/11/21 16:00 07/15/21 13:28 DC 07/12/21 03:47 2.5 MG Albuterol/ Ipratropium (Combivent Respimat 20-100 Mcg) 1 puff RTQID 07/11/21 16:00 07/12/21 16:02 DC 07/12/21 08:55 1 PUFF Albuterol/ Ipratropium (Duoneb) 3 ml RTQID 07/11/21 16:00 07/17/21 07:20 3 ML Apixaban (Eliquis) 2.5 mg BID 07/16/21 13:00 07/17/21 08:57 2.5 MG Ascorbic Acid (Vitamin C) 500 mg DAILY 07/17/21 09:00 07/17/21 08:57 500 MG Atorvastatin Calcium (Lipitor) 10 mg HS 07/11/21 21:00 07/16/21 21:51 10 MG Cefdinir (Omnicef) 300 mg BID 07/16/21 21:00 07/17/21 08:57 300 MG Cefepime HCl (Maxipime) 1 gm Q24H 07/15/21 09:00 07/16/21 09:40 DC 07/15/21 09:46 1 GM Dextrose (Dextrose 50%-Water Syringe) 12.5 gm PRN Q15MIN PRN 07/11/21 15:30 Digoxin (Lanoxin) 125 mcg QODAY 07/19/21 09:00 Diltiazem HCl (Cardizem 24hr Cd) 180 mg DAILY 07/12/21 09:00 07/15/21 14:51 DC 07/15/21 09:47 180 MG Dorzolamide HCl (Trusopt) 1 drop BID 07/11/21 21:00 07/17/21 08:57 1 DROP Furosemide (Lasix) 40 mg DAILY 07/12/21 09:00 07/14/21 15:37 DC 07/14/21 11:16 40 MG Info (Anti-Coagulation Monitoring By Pharmacy) 1 each PRN DAILY PRN 07/11/21 16:00 07/15/21 11:45 DC 07/12/21 13:54 1 EACH Insulin Human Lispro (HumaLOG) 0-5 UNITS TIDWMEALS 07/11/21 17:00 07/16/21 12:39 2 UNITS Lactobacillus Rhamnosus (Culturelle) 1 cap BID 07/12/21 21:00 07/17/21 08:57 1 CAP Latanoprost (Xalatan) 1 drop BID 07/11/21 21:00 07/17/21 08:57 1 DROP Levofloxacin/ Dextrose 150 ml @ 100 mls/hr Q48H 07/11/21 16:00 07/12/21 15:59 DC 07/11/21 16:45 100 MLS/HR Linezolid (Zyvox) 600 mg BID 07/11/21 21:00 07/16/21 09:40 DC 07/15/21 22:42 600 MG Losartan Potassium (Cozaar) 25 mg DAILY 07/12/21 09:00 07/14/21 15:37 DC 07/13/21 13:09 25 MG Metoprolol Succinate (Toprol Xl) 12.5 mg 1X ONCE 07/17/21 09:30 07/17/21 09:32 DC Montelukast Sodium (Singulair) 10 mg HS 07/11/21 21:00 07/16/21 21:51 10 MG Multivitamins (Thera M Plus) 1 tab DAILY 07/17/21 09:00 07/17/21 08:57 1 TAB Non-Formulary Medication (Albuterol Sulfate (Ventolin Hfa Inhaler)) 2 puff PRN Q4HRS PRN 07/11/21 15:30 UNV Olanzapine (ZyPREXA) 2.5 mg PRN Q4HRS PRN 07/12/21 23:00 07/16/21 21:51 2.5 MG Sodium Chloride 1,000 ml @ 75 mls/hr [id number] 07/16/21 11:30 07/17/21 01:38 75 MLS/HR Timolol Maleate (Timoptic 0.5% [facility]) 1 drop BID 07/11/21 21:00 07/17/21 08:57 1 DROP Lab Laboratory Tests Test 07/16/21 10:50 07/16/21 11:57 07/16/21 17:11 07/16/21 20:04 Sodium Level 146 mmol/L (136-145) Potassium Level 4.3 mmol/L (3.5-5.1) Chloride Level 110 mmol/L (98-107) Carbon Dioxide Level 32 mmol/L (21-32) Anion Gap 4 (6-14) Blood Urea Nitrogen 24 mg/dL (7-20) Creatinine 1.6 mg/dL (0.6-1.0) Estimated GFR (Cockcroft-Gault) 30.6 Glucose Level 208 mg/dL (70-99) Calcium Level 8.8 mg/dL (8.5-10.1) Glucose (Fingerstick) 168 mg/dL (70-99) 193 mg/dL (70-99) 168 mg/dL (70-99) Test 07/17/21 06:45 07/17/21 08:05 Sodium Level 147 mmol/L (136-145) Potassium Level 4.3 mmol/L (3.5-5.1) Chloride Level 110 mmol/L (98-107) Carbon Dioxide Level 28 mmol/L (21-32) Anion Gap 9 (6-14) Blood Urea Nitrogen 18 mg/dL (7-20) Creatinine 1.4 mg/dL (0.6-1.0) Estimated GFR (Cockcroft-Gault) 35.7 Glucose Level 202 mg/dL (70-99) Calcium Level 8.6 mg/dL (8.5-10.1) Glucose (Fingerstick) 197 mg/dL (70-99) Results All relevant outside records, renal labs, imaging studies, telemetry/EKG's were reviewed. Justicifation of Admission Dx: Justifications for Admission: Justification of Admission Dx: Yes YANIRA IQBAL MD Jul 17, 2021 10:06
[2021-07-17 11:00] VITALS: BP 111/54
--- NOTE | 2021-07-17 11:08 | NUR ---
SS following up with discharge planning. SS reviewed pt chart and discussed with pt RN. Pt is skilled rehabilitation resident from [facility], ; fax [phone]. Pt is currently requiring oxygen at two liters nasal canula. COVID19 negative. PT/OT [facility]. Pt accepted at [facility]. Discharge orders received and phoned and faxed to [facility]. Pt will discharge today and return to [facility]. SS currently awaiting transport time from facility. Pt's RN and pt's spouse notified. SS will continue to follow for discharge planning. Addendum: 07/17/21 at 1142 by MARC ORLANDO Pt will discharge today and go to [facility] between 1330 and 1400. [facility] to provide transportation. Pt's RN notified.
--- NOTE | 2021-07-17 11:18 | PDOC ---
CASEY PALMA COLLEGE SERVICE OFFICER 07/17/21 1118: CARDIO Progress Notes Date and Time Date of Service 07/17/2021 Time of Evaluation 0940 Subjective Subjective: No Chest Pain, No shortness of breath, No Palpitations Vitals Vitals Vital Signs Date Time Temp Pulse Resp B/P (MAP) Pulse Ox O2 Delivery O2 Flow Rate FiO2 07/17/21 10:57 113 113/58 07/17/21 07:30 93 Nasal Cannula 2.0 07/17/21 07:00 97.1 18 97.1 Weight Weight [ ] Input and Output Intake and Output Intake and Output 07/17/21 07:00 # Voids 3 # Bowel Movements 2 Laboratory Labs Laboratory Tests Test 07/16/21 11:34 07/16/21 11:57 07/16/21 17:11 07/16/21 20:04 SARS-CoV-2 RNA (RADHA) Negative (Negative) Glucose (Fingerstick) 168 mg/dL (70-99) 193 mg/dL (70-99) 168 mg/dL (70-99) Test 07/17/21 06:45 07/17/21 08:05 Sodium Level 147 mmol/L (136-145) Potassium Level 4.3 mmol/L (3.5-5.1) Chloride Level 110 mmol/L (98-107) Carbon Dioxide Level 28 mmol/L (21-32) Anion Gap 9 (6-14) Blood Urea Nitrogen 18 mg/dL (7-20) Creatinine 1.4 mg/dL (0.6-1.0) Estimated GFR (Cockcroft-Gault) 35.7 Glucose Level 202 mg/dL (70-99) Calcium Level 8.6 mg/dL (8.5-10.1) Glucose (Fingerstick) 197 mg/dL (70-99) Microbiology Micro Microbiology 07/14/21 Gram Stain - Final, Resulted 07/14/21 Aerobic and Anaerobic Culture - Preliminary, Resulted 07/13/21 Gram Stain Evaluation - Final, Complete 07/13/21 Respiratory Culture - Final, Complete Physical Exam HEENT: Neck Supple W Full Motion Chest: Symmetric LUNGS: Other (diminished bases) Heart: irregularly irregular (AFIB) Abdomen: Soft N/T Extremities: No Edema Neurology: confused Assessment Assessment 1. Acute respiratory failure with CHF and probable aspiration PNA. CT chest with moderate bilateral pleural effusions. 2. Acute on chronic diastolic CHF; better after right sided thoracentesis, better 3. PAFIB with intermittent RVR. Follows with [facility],Dr. Harden. rate better 4. Hypertension; low end. 5. Hyperlipidmia; statin 6. Diabetes, II 7. HANNA on CKD 8. Dementia 9. H/o DVT on Eliquis therapy Recommendations Low dose toprol. Dig QOD. Low dose eliquis for stroke prevention Lasix PRN Ongoing antibiotic therapy as per ID. SNU Poor equipment operator intermodal yard prognosis Follow up with Dr. Harden Justicifation of Admission Dx: Justifications for Admission: Justification of Admission Dx: Yes KALEB GEE MD 07/17/21 2018: CARDIO Progress Notes Assessment Assessment Patient seen and examined. Agree with HOG CONFINEMENT SYSTEM MANAGER's assessment and plan. AF with episodes of RVR - better controlled. Continue BB and eliquis s/p thoracentesis feeling better Ac on chr diast HF better compensated Continue antibiotics per ID team CASEY PALMA APRN Jul 17, 2021 11:18 KALEB GEE MD Jul 17, 2021 20:18
[2021-07-17] MEDS ORDERED: IV DEXTROSE 5 %-0.45 % NACL 1,000 ML IV SCH (11:30)
--- NOTE | 2021-07-17 13:27 | NUR ---
Pt left unit at 1320 by wheelchair via transportation. Pt's IV removed, VSS. Discharge paperwork sent with pt, report called to [facility] of [place] at [phone]. Wound photos not taken, camera not working properly. Dressing to R ankle changed.
[2021-07-18] MEDS ORDERED: METOPROLOL SUCC 24HR ER 25 MG TAB.ER.24H. PO SCH (09:00)
[2021-07-19] MEDS ORDERED: DIGOXIN 125 MCG TABLET. PO SCH (09:00)
== END 2021-07-17 13:42 | DRG 177 ==
LOC: 5 SOUTH 14:52
PROVIDERS: ADMIT Internal Medicine; ATTEND Internal Medicine
PROC: 0W993ZZ Drainage of Right Pleural Cavity, Percutaneous Approach (ICD-10-PCS; principal; 2021-07-13)
DX: J69.0 Pneumonitis due to inhalation of food and vomit (principal); I50.33 Acute on chronic diastolic (congestive) heart failure; J96.21 Acute and chronic respiratory failure with hypoxia; G93.41 Metabolic encephalopathy; D68.59 Other primary thrombophilia; E87.0 Hyperosmolality and hypernatremia; F05 Delirium due to known physiological condition; I13.0 Hypertensive heart and chronic kidney disease with heart failure and stage 1 through stage 4 chronic kidney disease, or unspecified chronic kidney disease; I47.1 Supraventricular tachycardia; I82.401 Acute embolism and thrombosis of unspecified deep veins of right lower extremity; J44.0 Chronic obstructive pulmonary disease with (acute) lower respiratory infection; J44.1 Chronic obstructive pulmonary disease with (acute) exacerbation; J98.11 Atelectasis; L97.319 Non-pressure chronic ulcer of right ankle with unspecified severity; N17.9 Acute kidney failure, unspecified; E11.22 Type 2 diabetes mellitus with diabetic chronic kidney disease; E11.40 Type 2 diabetes mellitus with diabetic neuropathy, unspecified; E78.00 Pure hypercholesterolemia, unspecified; E78.5 Hyperlipidemia, unspecified; F03.90 Unspecified dementia, unspecified severity, without behavioral disturbance, psychotic disturbance, mood disturbance, and anxiety; F32.9 Major depressive disorder, single episode, unspecified; I48.0 Paroxysmal atrial fibrillation; J45.20 Mild intermittent asthma, uncomplicated; N18.32 Chronic kidney disease, stage 3b; R13.10 Dysphagia, unspecified; Y95 Nosocomial condition; Z20.822 Contact with and (suspected) exposure to COVID-19; Z79.01 Long term (current) use of anticoagulants; Z82.3 Family history of stroke; Z82.49 Family history of ischemic heart disease and other diseases of the circulatory system; Z86.718 Personal history of other venous thrombosis and embolism; Z87.01 Personal history of pneumonia (recurrent); Z88.0 Allergy status to penicillin; Z90.710 Acquired absence of both cervix and uterus; Z98.41 Cataract extraction status, right eye; Z98.42 Cataract extraction status, left eye; M19.90 Unspecified osteoarthritis, unspecified site; Z88.8 Allergy status to other drugs, medicaments and biological substances
CPT/HCPCS: 32555; 36415; 71045; 71250; 80048; 80053; 82945; 82962; 83615; 83986; 84157; 85025; 85610; 87070; 87071; 87075; 87205; 88112; 88305; 89050; 94640; 94760; J0692; J1160; J1815; J1940; J1956; J7030; U0003; U0005; 92526-GN; 92610-GN; 97116-GP; 97530-GP; 97535-GO; G0378; J7613